=== PATIENT | male | born 1940 | race Caucasian/White ===

== ENCOUNTER 2016-12-07 17:17 | Inpatient (IN) | payer MEDICARE, OTHER ==
[~2016-12-07] VITALS: Ht 185.4 cm; Wt 72.8 kg
[2016-12-07 17:27] VITALS: BP 109/75; PULSE 87; RESP 18; O2SAT 95
[2016-12-07 17:49] VITALS: BP 110/53; PULSE 88; RESP 22; O2SAT 99
--- NOTE | 2016-12-07 18:04 | ED.REPORT ---
HPI-General Illness Date of Service Dec 07, 2016 ED Provider: Ankit Cummings DO A 76 year old male with a history of memory issues, COPD, HTN, and diabetes presents to the ED complaining of swelling, redness, and puffiness in both legs onset within the last few days. He thinks that symptoms may be from water retention. He does not have a good memory of why he is in the ED. He otherwise reports that he feels fine and denies any SOB, chest pain, fever, vomiting, or diarrhea. His daughter accompanied him to the ED. Nursing Notes Stated Complaint: SWOLLEN LEGS,HEART CONCERNS Chief Complaint: Respiratory Complaints Nursing Notes Reviewed: Yes Allergies: Coded Allergies: No Known Allergies (Unverified , 12/07/16) Scheduled Aspirin (Aspirin) 81 Mg Tablet 81 MG PO DAILY Atorvastatin Calcium (Atorvastatin Calcium) 40 Mg Tablet 40 MG PO DAILY Glimepiride (Glimepiride) 4 Mg Tablet 4 MG PO BID Hydrochlorothiazide (Hydrochlorothiazide) 25 Mg Tablet 25 MG PO DAILY Metformin (Metformin) 500 Mg Tablet 1,000 MG PO BID Ramipril (Ramipril) 10 Mg Capsule 10 MG PO DAILY Scheduled PRN Albuterol HFA (Proair HFA) 8.5 Gm Hfa.aer.ad 2 PUFFS INH Q4H PRN PRN For Shortness of Breath General Time Seen by MD: 18:04 Chief Complaint Other (bilateral leg swelling) Hx Obtained From: Patient Arrived By: Walk-in Sudden in Onset?: No Onset Occurred: 3 days ago (a few days ago) Symptom Duration: Since onset Location: : Leg left: Leg right Severity: Current: Mild Severity: Maximum: Mild Recent Healthcare: No recent doctor visit Similar Sx Previous: No Past Medical History Past Medical History Notes: Dr. De Oliveira is PCP. Past Medical History Nicotine dependence. Atrial Fibrillation. Colon cancer screening. Cad, S/p Cabg Memory/cognitive changes hyperlipidemia Current medications: Proair Aspirin Adult Reports: COPD, Diabetes mellitus (Type 2), Hypertension Past Surgical History 5 way bypas performed 20 years ago. Does not use inhaler. Social History Denies recent out of country travel. Review of Systems fluid retention. Full Review of Systems Constitutional: Denies: Fever Respiratory: Denies: Shortness of breath Cardiovascular: Denies: Chest pain GI: Denies: Diarrhea, Vomiting Musculoskeletal: Reports: Extremity swelling (bilateral below waist) Complete sys rev & neg: except as marked. Physical Exam Vital Signs Vital Signs Date Time Temp Pulse Resp B/P Pulse Ox O2 Delivery O2 Flow Rate FiO2 12/07/16 19:37 82 18 96 Room Air 12/07/16 17:49 88 22 110/53 99 Room Air 12/07/16 17:27 36.1 87 18 109/75 95 Room Air Initial VS: Reviewed General/Constitutional: Awake, Alert Patient is pleasant. Head / Eyes: Atraumatic, Normocephalic, PERRL, EOMI Head is normal, but patient has pursed lip breathing. ENT: Atraumatic Neck Vascular: Positive: JVD moderate Resp Distress / Stridor: Positive: Resp distress mild Patient has barrel chest consistent with COPD. Diminshed breath sounds with wheezing. Pursed lip breathing. Cardiovascular: Heart rate NL Distant heart tones. Abdomen: No guarding, No rebound Anasarca from waist down. Pitting edema in both legs. Skin: Warm, Dry Neurologic: Oriented X3, Speech NL Interpretation & Diagnostics Lab Results Interpretation Result Diagram: 12/07/16 1825 12/07/16 1825 Test 12/07/16 18:25 White Blood Count 11.0th/mm3 (3.8-10.1) Red Blood Count 5.56mil/mm3 (4.40-5.80) Hemoglobin 15.5g/dL (13.8-17.2) Hematocrit 47.1% (41.0-50.0) Mean Corpuscular Volume 84.7fL (81-100) Mean Corpuscular Hemoglobin 27.9pg (27.0-35.0) Mean Corpuscular Hemoglobin Concent 32.9% (32.0-37.0) Red Cell Distribution Width 18.4% (12.3-15.4) Platelet Count 180bil/L (150-400) Neutrophils (%) (Auto) 82.7% (40-74) Lymphocytes (%) (Auto) 8.4% (14-46) Monocytes (%) (Auto) 8.5% (4-12) Eosinophils (%) (Auto) 0.2% (0-5) Basophils (%) (Auto) 0.1% (0-3) Sodium Level 136mEq/L (134-144) Potassium Level 5.3mEq/L (3.5-5.2) Chloride Level 98mEq/L (97-108) Carbon Dioxide Level 24mmol/L (18-29) Blood Urea Nitrogen 48mg/dL (8-27) Creatinine 1.21mg/dL (0.76-1.27) Estimat Glomerular Filtration Rate 62mL/min (>59) Glucose Level 93mg/dL (60-99) Lactic Acid Level 1.9mmol/L (0.4-2.0) Calcium Level 9.4mg/dL (8.5-10.1) Total Bilirubin 2.3mg/dL (0.0-1.2) Aspartate Amino Transf (AST/SGOT) 26U/L (0-50) Alanine Aminotransferase (ALT/SGPT) 27U/L (0-44) Alkaline Phosphatase 50U/L (25-160) Troponin T 0.018ug/L (0.0-0.011) Pro-B-Type Natriuretic Peptide 64352ty/mL (0-486) Total Protein 6.8g/dL (6.4-8.4) Albumin 3.4g/dL (3.4-5.0) Procalcitonin 0.09ng/mL (0.00-0.08) Hold Campbell Top Tube Received (Received) Pulse Oximetry Interpretation Pulse Oximetry: Pulse Ox normal, On room air ECG Interpretation ECG Interpretation: Rate is 87. Sinus rhythm. Ventricular premature complex. Left ventricular hypertrophy. Nonspecific T abnormalities, lateral leads. Anterior ST elevation, probably due to LVH. Time: 18:08 Interpreted by: ED physician Rhythm Strip Interpretation : Rhythm Strip Interpretation: Interpreted by me, Rate (76), Normal sinus rhythm CBC Interpretation WBC elevated BMP / CMP Interpretation K+ elevated, BUN elevated Cardiac / Vascular Lab Interp Cardiac markers abnormal, BNP elevated, Troponin abnormal X-Ray Chest Interpretation Chest Xray Interpretation: IMPRESSION: Low lung volumes with diffuse consolidative and groundglass opacities which could represent multifocal pneumonia and/or aspiration. Please correlate clinically to exclude pulmonary edema. Recommend continued radiographic followup Dictated by: Nino Bolanos M.D. on 12/07/2016 at 18:48 Approved by: Nino Bolanos M.D. on 12/07/2016 at 18:51 Interpretation / Wet Read by: Interpret - Radiologist Re-Eval/Medical Decision Med Decision/Clinical Course 76-year-old male presents with bilateral leg swelling. He is unable to give a good history due to either dementia or memory impairment. This is all well documented. On my evaluation he appeared to be air hungry and in mild respiratory distress. He also is rather soft blood pressure. He has JVD and pursed lip breathing. He has a barrel chest consistent with COPD. He has crackles and wheezes in both lung rice. He cannot take a very deep breath. His belly is benign. His limbs show edema bilaterally. EKG shows sinus rhythm. He has some J-point elevation anteriorly. I think he also has voltage criteria for LVH. Of note he does not have any chest pain whatsoever so I doubt he is having a STEMI. I think his troponin should be trended. Chest x-ray shows bilateral fluffy infiltrates. Laboratory work shows a leukocytosis as well as elevated BNP and azotemia with mild hyperkalemia. Assessment: Pneumonia, congestive heart failure and acute exacerbation of COPD. Elevated troponin. Plan: IV ceftriaxone because as I can tell this is community acquired pneumonia. IV diuretics. Aspirin. Nitrates of his blood pressure will tolerate it for the CHF. DuoNeb and steroids. I will be admitting him to the progressive care unit. Source of Hx: Old records Time of Eval: 19:19 Re-Evaluation/Progress Note: Rechecked patient, explained test results, diagnosis, and plan for admission. Patient understands and agrees with the plan. All questions addressed. Patient appears to be more sick. Consultation : Referral / Consult Name: Srini Gandara MD Call Returned at: 19:21 Accountant Manager: Accepts admit Note: Discussed patient case with Dr. Gandara who accepts patient admit. Counseled Regarding: Diagnosis, Lab results, Need for admission Discharge & Departure Shift Change Sign-Out Response to Therapy: Improved Primary Impression: Pneumonia Pneumonia type: due to unspecified organism Laterality: bilateral Lung location: lower lobe of lung Qualified Code: J18.9 - Pneumonia, unspecified organism Additional Impressions: COPD with acute exacerbation Congestive heart failure Congestive heart failure type: unspecified congestive heart failure type Congestive heart failure chronicity: acute Qualified Code: I50.9 - Heart failure, unspecified Disposition: ADMITTED TO HOSPITAL Discharge Condition All VS Reviewed: Yes Condition: Stable Referrals: PlouWilmer charles MD Attestation Portions of this note were transcribed by Francisco Dickson. I, Dr. Cummings personally performed the history, physical exam and medical decision-making; I reviewed and confirmed the accuracy of the information in the transcribed note. Signed by: Preston Barr, 12/07/2016, 2050. copies to: Wilmer De Oliveira MD, Todd P DO Dec 07, 2016 18:04 Francisco Dickson Dec 07, 2016 18:10
[2016-12-07] MEDS ORDERED: Albuterol-Ipratropium 3 mL Inhalation Solution NEB ONE (18:35)
[2016-12-07 18:38] LABS: BASOPHILS % (AUTO) 0.1 % (0-3); EOSINOPHILS % (AUTO) 0.2 % (0-5); MONOCYTES % (AUTO) 8.5 % (4-12); Mean Corpuscular Hemoglobin 27.9 pg (27.0-35.0); Mean Corpuscular Volume 84.7 fL (81-100); NEUTROPHILS % (AUTO) 82.7 % (40-74); Platelet Count 180 bil/L (150-400)
--- NOTE | 2016-12-07 18:53 | DRSVH ---
PROCEDURE: X-RAY CHEST ONE VIEW, PORTABLE ([id number]) INDICATIONS: SHORT OF BREATH TECHNIQUE: One view of the chest was acquired. COMPARISON: None. FINDINGS: Surgical changes and devices: Sternotomy wires. Lungs and pleura: No pleural effusions or pneumothorax. Lung volumes are decreased. Bilateral perihi lar ill-defined consolidative and groundglass opacities Mediastinum: Mediastinal contours appear normal. Heart size is normal. Bones and chest wall: No suspicious bony lesions. Overlying soft tissues appear unremarkable. IMPRESSION: Low lung volumes with diffuse consolidative and groundglass opacities which could represent multifoca l pneumonia and/or aspiration. Please correlate clinically to exclude pulmonary edema. Recommend cont inued radiographic followup Dictated by: Nino Bolanos M.D. on 12/07/2016 at 18:48 Approved by: Nino Bolanos M.D. on 12/07/2016 at 18:51
[2016-12-07 18:56] LABS: TROPONIN T 0.018 ug/L (0.0-0.011)
[2016-12-07] MEDS ORDERED: MethylprednisoLONE Sodium Succinate 62.5 mg/mL 2 mL Inj IVPUSH ONE (19:15)
[2016-12-07] MEDS ORDERED: Furosemide 10 mg/mL 4 mL Inj IVPUSH ONE (19:15)
[2016-12-07] MEDS ORDERED: cefTRIAXone Inj 2,000 MG in Dextrose 5% Minibag Plus 50 ML IV ONE (19:15)
[2016-12-07] MEDS ORDERED: ASPI-973 PO (19:24)
[2016-12-07] MEDS ORDERED: GLIM4TAB2 PO (19:24)
[2016-12-07] MEDS ORDERED: ATOR40TA69 PO ×2 (19:24→21:24)
[2016-12-07] MEDS ORDERED: METF500T4 PO (19:24)
[2016-12-07] MEDS ORDERED: RAMI10CA PO (19:24)
[2016-12-07] MEDS ORDERED: HYDR25TA4 PO (19:24)
[2016-12-07] MEDS ORDERED: ALBU8.5H2 INH (19:24)
[2016-12-07] MEDS ORDERED: Polyethylene Glycol (PEG) 17 Gm Powder PO PRN (19:35)
[2016-12-07 19:37] VITALS: PULSE 82; RESP 18; O2SAT 96
[2016-12-07 20:16] VITALS: BP 99/52; PULSE 90; RESP 22; O2SAT 96
[2016-12-07 21:07] VITALS: BP 105/68; PULSE 87; RESP 18; O2SAT 95
[2016-12-07] MEDS ORDERED: NIAC1000 PO ×2 (21:18→21:33)
[2016-12-07] MEDS ORDERED: METO50TA7 PO (21:22)
[2016-12-07] MEDS ORDERED: RAMI10CA31 PO (21:25)
[2016-12-07] MEDS ORDERED: ASPI325T32 PO (21:28)
[2016-12-07] MEDS ORDERED: VITA400C19 PO (21:28)
[2016-12-07] MEDS ORDERED: FOLI0.4T2 PO (21:28)
[2016-12-07] MEDS ORDERED: ASCO100089 PO (21:28)
[2016-12-07] MEDS ORDERED: MULT-1018 PO (21:28)
--- NOTE | 2016-12-07 21:54 | NUR ---
Admit to [facility] Patient report called to [facility] nurse. Patient arrived via gurney and self transferred to bed. Patient oriented to room, bed, staff, call light. Patient has bilateral lower extremity edema. Scrotum is swollen and abdomen is swollen. Patient denied pain. Patient on RA.
--- NOTE | 2016-12-07 22:15 | PCM.HPMED ---
Subjective Date of Service Dec 07, 2016 Primary Provider: Admitting Physician: Srini Gandara MD Primary Care Physician: Wilmer De Oliveira MD Attending Physician: Srini Gandara MD Admit Status: From the Emergency Department Chief Complaint: Increased swelling b/l lower extremities History of Present Illness: Patient is a 76 year old male with memory issues and a history of CAD s/p CABG twenty yrs ago, DM type 2, HTN and COPD who presented to the ED with the complaint of increased redness and swelling in his legs. He states that he is not quite sure when it started but states that he saw his primary doctor who recommend he go to the ED. He is alert and communicating appropriately but has notable deficits in his memory. Per chart review, the swelling in his legs worsened within the last few days. Additional history was obtained from the patient's son and daughter, who state that the he looks significantly different than his baseline. His daughter notes increasing frailty, ill-appearance and a decreased appetite which she attributes somewhat to his memory issues and ongoing tobacco use. The patient denies any other symptoms and several times asked if he could go home. He denies fever, chills, shortness of breath, chest pain or palpitations, cough, dizziness, GI or symptoms. Per his son and daughter the patient has pill packs prepared at [facility] for all his medications but there is questionable compliance with his medications due to his cognitive deficit. In the ED, vitals 36.1, BP 110/53, pulse 88, RR 22, SpO2 99% on room air; Labs significant for a WBC of 11.0 with a left shift, lactic acid 1.9, hyperkalemia ( potassium 5.3), troponin 0.018, proBNP 46191, BUN 48, creatinine 1.21. ECG showing sinus rhythm with a rate of 87, nonspecific T wave abnormalities and anterior ST elevation likely due to LVH. CXR revealed low lung volumes and diffuse groundglass opacities suspicious for multifocal pneumonia. He was given 40mg IV lasix, 125mg IV solumedrol, duonebs, 2g ceftriaxone and 324mg of PO aspirin. Review of Systems: A comprehensive review of systems was conducted with the patient and found to be negative except as above in the History of Present Illness. Allergies Coded Allergies: No Known Allergies (Unverified , 12/07/16) Home Medications Aspirin 81 MG PO DAILY Atorvastatin Calcium 40 MG PO DAILY Glimepiride 4 MG PO BID Hydrochlorothiazide 25 MG PO DAILY Metformin 1,000 MG PO BID [id number] MG PO DAILY Albuterol HFA 8.5 Gm Hfa.aer.ad 2 PUFFS INH Q4H PRN For SOB PMH Hypertension Hyperlipidemia Diabetes mellitus, type 2 CAD s/p CABG (5 vessel bypass 20yrs ago) Memory/cognitive changes Nicotine dependence Surgical History CABG s/p 20yrs ago Tonsillectomy as a child Denies any other surgeries Family History Father with NH in his mid 50s, at age 73. Patient denies family hx of diabetes, stroke or cancers. 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 HEENT: Normocephalic, atraumatic, PERRLA, no scleral icterus, pursed lip breathing no cyanosis, oropharynx appears normal, mucosa somewhat dry. NECK: Nontender, +JVD, no bruits or lymphadenopathy or thyromegaly. Cardiac: Heart tones are distant, RRR, no murmurs, rubs or gallops appreciated. Chest/Lungs: Increased A/P diameter, breath sounds diminished bilaterally, mild diffuse end-expiratory wheezing, no crackles or rhonchi heard. (lung exam conducted shortly after nebulizer tx) Cardiovascular: Regular rate and rhythm with no murmurs, rubs, or gallops appreciated Abd: Soft, mildly distended, nontender, no rebound or guarding, no hepatosplenomegaly or masses appreciated. Ext: Ansasarca from waist down, bilateral lower extremities erythematous with chronic skin changes, no ulcerations or blisters. Skin: Warm, dry, ashen with lower extremity changes as above, no rashes or ulcerations appreciated. Neuro: Alert and oriented x3, limited memory to why he is here with notable lapses in timeline, CN II-XII grossly intact; bilateral muscle wasting of upper ext, no focal motor or sensory deficit. No known gait impairment. Psychiatric: Normal mood and affect, communicating appropriately and admits to difficulties with memory. Lab and Diagnostics Labs Laboratory Tests Test 12/07/16 18:25 White Blood Count 11.0th/mm3 (3.8-10.1) Red Blood Count 5.56mil/mm3 (4.40-5.80) Hemoglobin 15.5g/dL (13.8-17.2) Hematocrit 47.1% (41.0-50.0) Mean Corpuscular Volume 84.7fL (81-100) Mean Corpuscular Hemoglobin 27.9pg (27.0-35.0) Mean Corpuscular Hemoglobin Concent 32.9% (32.0-37.0) Red Cell Distribution Width 18.4% (12.3-15.4) Platelet Count 180bil/L (150-400) Neutrophils (%) (Auto) 82.7% (40-74) Lymphocytes (%) (Auto) 8.4% (14-46) Monocytes (%) (Auto) 8.5% (4-12) Eosinophils (%) (Auto) 0.2% (0-5) Basophils (%) (Auto) 0.1% (0-3) Sodium Level 136mEq/L (134-144) Potassium Level 5.3mEq/L (3.5-5.2) Chloride Level 98mEq/L (97-108) Carbon Dioxide Level 24mmol/L (18-29) Blood Urea Nitrogen 48mg/dL (8-27) Creatinine 1.21mg/dL (0.76-1.27) Estimat Glomerular Filtration Rate 62mL/min (>59) Glucose Level 93mg/dL (60-99) Lactic Acid Level 1.9mmol/L (0.4-2.0) Calcium Level 9.4mg/dL (8.5-10.1) Total Bilirubin 2.3mg/dL (0.0-1.2) Aspartate Amino Transf (AST/SGOT) 26U/L (0-50) Alanine Aminotransferase (ALT/SGPT) 27U/L (0-44) Alkaline Phosphatase 50U/L (25-160) Troponin T 0.018ug/L (0.0-0.011) Pro-B-Type Natriuretic Peptide 35855gf/mL (0-486) Total Protein 6.8g/dL (6.4-8.4) Albumin 3.4g/dL (3.4-5.0) Hold Campbell Top Tube Received (Received) Result Diagram: 12/07/16182412/07/161824 X-Rays, CTs and MRIs X-RAY CHEST ONE VIEW, PORTABLE IMPRESSION: Low lung volumes with diffuse consolidative and groundglass opacities which could represent multifocal pneumonia and/or aspiration. Please correlate clinically to exclude pulmonary edema. Recommend continued radiographic followup Dictated by: Nino Bolanos M.D. on 12/07/2016 at 18:48 Approved by: Nino Bolanos M.D. on 12/07/2016 at 18:51 Assessment & Plan 76 y/o M with memory issues and a hx of CAD s/p CABG twenty yrs ago, DM type 2, HTN and COPD who presented to the ED with the complaint of increased redness and swelling in his legs for the past three days. Admitted for further evaluation and management of CHF, COPD exacerbation and probable pneumonia. 1. Probable acute exacerbation of CHF, poa. Active. -limited health records via chart review. No prior Echo or diagnosis of HF found. -patient presented in moderate respiratory distress with anasarca to the waist. -EKG showed NSR w/rate 88, anterior ST elevation likely due to LVH and non- specific T wave changes. -CXR suspicious for pneumonia, aspiration and/or pulmonary edema. -proBNP 05430, troponin 0.083 -received 40mg IV lasix in ED -placed telemetry -monitor I/Os, daily weights -Echocardiogram ordered -trend troponin -continue IV lasix 40mg daily -consider consult to Cardiology, pending Echo 2. Acute on chronic COPD exacerbation, poa. Active. -50+ pack-year smoking history. Ongoing tobacco use. -sputum culture, ordered -received 125mg IV solumedrol in ED. -start 40mg PO prednisone daily x5days -continue antibiotics -duonebs q4h, albuterol q2h prn 3. Community acquired pneumonia, poa. Active -WBC 11.0 w/ left shift. CXR as above. -Lactic acid wnl (1.9) -received 2g ceftriaxone, 125mg IV solumedrol, duoneb x1in the ED -blood cultures x2, pending -sputum culture ordered -procalcitonin, pending -urine antigens (strep and legionella), ordered -rapid influenza screen pending -respiratory viral PCR ordered -continue IV antibiotics -will hold IVFs secondary to #2 -CBC, procalcitonin in the morning 4. Elevated troponin, poa. Active -patient remains asymptomatic for chest pain -likely secondary to demand ischemia, acute exacerbation of CHF -troponin 0.083, will trend 5. Hyperkalemia, unknown chronicity, poa. Active. -potassium 5.3 -pre-renal azotemia; BUN 48, creatinine 1.21. -continue lasix, as above -CMP in the morning. 4. Hypertension (chronic), poa. Ongoing -home medications, held on admission for low BPs 5. Diabetes mellitus, type 2 (chronic), poa. Ongoing -held home metformin and glimepiride 6. Hyperlipidemia (chronic), poa. Ongoing -continue home statin PRN: Acetaminophen-fever/headache/mild/moderate pain Antiemetics, as needed Bowel regimen, as needed. Disposition: Patient admitted under inpatient status with expected length of stay > 2 midnights for severity of present symptoms, complexities of treatment plan and risk for adverse event. Pain Evaluation: Adequate Pain Control GI Prophylaxis: Not indicated VTE Prophylaxis Indicated: Meets Criteria for Anticoag Therapy VTE Prophylaxis: Sub-Q Heparin (Unfractionated) Resuscitation Status: CPR: Attempt Resuscitation Attending Statement The patient was seen and examined together with Dr. Kang on 12/07 and I agree with the history, exam and plan as outlined in the note above. Verito Kang DO Dec 07, 2016 19:32 Srini Gandara MD Dec 08, 2016 00:25
[2016-12-07] MEDS ORDERED: Glucose 40% Oral Gel 15 Gm Tube PO PRN (22:25)
[2016-12-07] MEDS ORDERED: Albuterol 2.5 mg/3 mL Inhalation Solution NEB PRN (22:25)
[2016-12-08] VITALS (12 sets, daily range): BP systolic 97–129; BP diastolic 60–82; PULSE 79–108; RESP 20–22; O2SAT 90–97
[2016-12-08] MEDS ORDERED: Azithromycin Inj 500 MG in Dextrose 5% w/Vial Mate 250 ML IV SCH (01:00)
[2016-12-08] MEDS ORDERED: 0.9% Sodium Chloride 250 ML ONE (02:01)
--- NOTE | 2016-12-08 02:12 | NUR ---
5 beats VTACH at around 0200 per telephonic nurse. Pt asymptomatic. Denies pain and states "I am trying to sleep". VSS. Will continue to monitor.
[2016-12-08 06:51] LABS: BASOPHILS % (AUTO) 0 % (0-3); EOSINOPHILS % (AUTO) 0 % (0-5); MONOCYTES % (AUTO) 1.5 % (4-12); Mean Corpuscular Hemoglobin 28.4 pg (27.0-35.0); Mean Corpuscular Volume 84.3 fL (81-100); NEUTROPHILS % (AUTO) 92.5 % (40-74); Platelet Count 139 bil/L (150-400)
[2016-12-08 07:34] LABS: Magnesium 2.2 mg/dL (1.6-2.6)
[2016-12-08] MEDS: Albuterol-Ipratropium 3 mL Inhalation Solution NEB SCH ×4 (08:24→20:49)
[2016-12-08] MEDS ORDERED: Furosemide 10 mg/mL 4 mL Inj IVPUSH SCH (08:30)
[2016-12-08] MEDS ORDERED: predniSONE 20 mg Tablet PO SCH (08:30)
[2016-12-08] MEDS: Insulin LISPRO 300 Unit/3 mL Inj SUBQ SCH ×4 (09:27→22:00)
[2016-12-08] MEDS: Heparin 5,000 Unit/mL Inj SUBQ SCH ×2 (10:24→17:16)
--- NOTE | 2016-12-08 13:52 | NUR ---
Supplemental O2 Patient oxygen saturations while awake were at 95%. When patient falls asleep patient desats to 88%. 2L supplemental oxygen placed on patient while resting in day. Placing continuos pulse ox on patient.
[2016-12-08 14:04] LABS: APPEARANCE,URINE CLEAR (CLEAR,HAZY); COLOR,URINE DARK YELLOW (YELLOW); PH,URINE 5.5 (5.0-8.0)
[2016-12-08 14:05] LABS: OCCULT BLOOD,URINE NEGATIVE (NEGATIVE); UROBILINOGEN,URINE NORMAL (NORMAL)
--- NOTE | 2016-12-08 14:38 | NUR ---
took over patient care [id number]
--- NOTE | 2016-12-08 14:47 | NUR ---
Student Nurse PIE note P: pt presenting with +3 pitting edema on lower extremities, firm abdomen, but no pain reported. Patient has history of CHF, COPD, and issues with treatment/medication adherence. Patient has memory loss issues. I: Hep-locked pt and stopped fluids. Provided pt with ice water and educated him on importance of voiding. Patient tolerated PO medications well. Echocardiogram performed around 1400. Keeping head of bed raised and O2 on while pt sleeps (take off when awake). E: IV site looks clear and reports no signs of inflammation or phlebitis. Monitor and track BP for hypotension and weights for fluid retention. Monitor lower extremity edema. Awaiting abdominal ultrasound.
--- NOTE | 2016-12-08 16:39 | DRSVH ---
[facility] [address] [place] [address] Echocardiogram Report Name: BELKYS ERIC JStudy Kunal e: 12/08/2016 Height: 73 in Hospital Exam Location: [facility] Weight: 202 lb Gender: Male BSA: 2.2 m2 : 1940 Age: 76 yrs BP: 97/64 mmHg Reason For Study: ANASARCA, SHORTNESS OF BREATH Ordering Physician: Performed By: Chintan Koroma Interpretation Summary The left ventricle is moderate-severely dilated and left ventricular systolic function is severely reduced with the ejection fraction estimated to be 10- 15%. There is a significant dyssynchronous contraction pattern, consistent with a conduction abnormality with severe global hypokinesis that is worse at the apex and the entire posterior wall which appear to be essentially akinetic. Trabeculae near apex are visualized but a thrombus can not be excluded. Diastolic function could not be accurately assessed due to unobtainable data. The right ventricle is mildly dilated. Right ventricular systolic function is severely reduced. The right ventricular systolic pressure is estimated at 49 mmHg assuming a right atrial pressure of 15 mm Hg. The left atrium is moderately dilated and the right atrium is mildly dilated. There is moderate mitral annular calcification with probable moderate mitral regurgitation and minimal to mild mitral stenosis. There is moderate tricuspid regurgitation. The aortic valve is slightly calcified with mild to moderate aortic regurgitation but no aortic valve stenosis. There is mild to moderate pulmonic regurgitation. The ascending aorta and aortic arch are at the upper limits of normal in size. Procedure: A two-dimensional transthoracic echocardiogram with color flow and Doppler was performed. The study quality was technically good. There is no prior echocardiogram noted for this patient. The heart rate ranged between 86-101 bpm during the study. The patient had frequent PVCs during the exam. Left Ventricle: The left ventricle is moderate-severely dilated. There is normal left ventricular wall thickness. Trabeculae near apex are visualized. No thrombus is observed. Thrombus can not be excluded. Left ventricular systolic function is severely reduced. The ejection fraction is estimated to be 10-15%. There is a significant dyssynchronous contraction pattern, consistent with a conduction abnormality. There is severe global hypokinesis of the left ventricle. This is worse at the apex and the entire posterior wall which appear to be essentially akinetic. Diastolic function could not be accurately assessed due to unobtainable data. Right Ventricle: The right ventricle is mildly dilated. Right ventricular systolic function is severely reduced. Atria: The left atrium is moderately dilated. The right atrium is mildly dilated. There is no Doppler evidence for an interatrial shunt. Mitral Valve: There is moderate mitral annular calcification. The mitral valve leaflets appear borderline thickened, but open well. There is mild mitral stenosis. The mitral valve mean gradient is 6 mmHg. There is moderate mitral regurgitation. Aortic Valve: The aortic valve is trileaflet. The aortic valve is slightly calcified. The aortic valve opens well. There is no aortic valve stenosis. There is mild to moderate aortic regurgitation. Tricuspid Valve: The tricuspid valve is not well visualized, but is grossly normal. There is moderate tricuspid regurgitation. The right ventricular systolic pressure is estimated at 49 mmHg assuming a right atrial pressure of 15 mm Hg. Pulmonic Valve: The pulmonic valve leaflets are thin and pliable; valve motion is normal. There is mild to moderate pulmonic regurgitation. Great Vessels: The aortic root is normal size. The ascending aorta is at the upper limits of normal in size. The aortic arch is at the upper limits of normal in size. The pulmonary artery is normal size. The IVC is dilated (diameter is greater than 2.1 cm) and it collapses less than 50% with a sniff. This suggests a high right atrial pressure of 15 mm Hg. Pericardium/ Pleura There is no pericardial effusion. There is no pleural effusion. MMode/2D Measurements & Calculations LVIDd: 6.8 cm LA dimension: 4.8 cm RA long axis LVOT diam: 2.3 cm LVIDs: 6.4 cm AoV Opening FS: 6.5 % LA A2 area: 24.6 cm RA area EPSS: 2.6 cm LA A4 area: 28.2 cm Ao root diam IVSd: 0.90 cm LA length (vol) : 21.0 cm LVPWd: 0.96 cm RA vol asc Aorta Diam LA vol: 103.8 ml : 67.9 ml LA vol index RA Ao Arch Diam (Prox : 31.4 mm2 Trans): 3.0 cm IVC diam: 2.4 cm LV craig. diameter/BSA LV sys. diameter/BSA RVD1 (basal) RVD2 (mid): 4.1 cm (cm/m^2): 3.2 (cm/m^2): 3.0 TAPSE: 0.61 cm Doppler Measurements & Calculations Ao V2 max: 115.6 cm/sec MV P1/2t TR max kip MV V2 mean Ao max P.4 mmHg : 93.4 msec : 290.8 cm/sec : 111.8 cm/sec Ao mean P.8 mmHg TR max PG MV mean PG LVOT Max Kip MVA(VTI): 1.3 cm2: 33.8 mmHg : 57.5 cm/sec PA V2 max MV V2 VTI: 35.2 cm : 73.4 cm/sec MV dec time ESVIN(I,D): 2.3 cm PA mean PG : 0.29 sec sev ratio: 0.54 : 0.85 mmHg PA Accel Time MV P1/2t max kip Ao V2 mean LV V1 max PG PA V2 mean : 80.6 cm/sec : 41.9 cm/sec Ao V2 VTI LV V1 VTI: 10.2 cmPA pr(Accel) MVA(P1/2t): 2.4 cm2 : 49.9 mmHg ESVIN(V,D): 2.1 cm2 ESVIN indexed to BSA (cm^2/m^2): 1.1 Reading Physician:04:38 PM
--- NOTE | 2016-12-08 17:19 | PCM.PNMED ---
Subjective Date of Service Dec 08, 2016 Subjective complains of LE edema. Otherwise denies any new issues/complaints Exam Vital Signs Vital Sign - Last Date Time Temp Pulse Resp B/P Pulse Ox O2 Delivery O2 Flow Rate FiO2 12/08/16 16:07 94 22 90 Room Air 12/08/16 14:04 36.9 97/64 Intake and Output 12/07/16 12/07/16 12/08/16 Cumulative From/Thru 15:00 23:00 07:00 12/07/16 17:27 - 12/08/16 06:42 Intake Total 750 ml 750 ml Balance 750 ml 750 ml Intake Oral 750 ml 750 ml # Voids 1 1 # Bowel Movements 0 0 General: Alert, Oriented X3, Cooperative, No Acute Distress Head: Normal Eyes: Scleral Anicteric Mouth: Mucous Membr Moist/[place] Neck: Supple Chest & Lungs: Chest Wall Normal, Clear to auscultation & percussion Cardiovascular: Regular Rate/Rhythm Pulses: NL carotid, radial, femoral, DP, PT Abdomen: Non-tender, Distended, Normoactive bowel tones, Soft Extremities: Edema (3+ pitting edema up to the abdomen) Neurological: Grossly Neurologically Intact, Normal Speech IVs and Medications Medications Reviewed: Medications were reviewed in detail Lab and Diagnostics Result Diagram: 12/08/16 0552 12/08/16 0552 X-Rays, CTs and MRIs X-RAY CHEST ONE VIEW, PORTABLE IMPRESSION: Low lung volumes with diffuse consolidative and groundglass opacities which could represent multifocal pneumonia and/or aspiration. Please correlate clinically to exclude pulmonary edema. Recommend continued radiographic followup Dictated by: Nino Bolanos M.D. on 12/07/2016 at 18:48 Approved by: Nino Bolanos M.D. on 12/07/2016 at 18:51 Assessment & Plan 76 y/o M with memory issues and a hx of CAD s/p CABG twenty yrs ago, DM type 2, HTN and COPD who presented to the ED with the complaint of increased redness and swelling in his legs for the past three days. Admitted for further evaluation and management of CHF, COPD exacerbation and probable pneumonia. # Anasarca, suspect acute and present on admission. ongoing -probable acute exacerbation of systolic and diastolic CHF, poa. Active. -limited health records via chart review. -CXR suspicious for pneumonia, aspiration and/or pulmonary edema. -received 40mg IV lasix in ED -continue telemetry -monitor I/Os, daily weights -followup pending Echocardiogram -hold IV Lasix for today until Echo result back and followup on renal function in am given acute kidney injury overnight -consider consult Cardiology and/or nephrology pending echo and goals of care -check abdominal ultra sound to rule out ascites. # Acute on chronic COPD exacerbation, poa. Currently seems resolved -50+ pack-year smoking history. Ongoing tobacco use. -sputum culture, ordered -received 125mg IV solumedrol in ED. -stop Prednisone given no significant wheezing noted on exam today -duonebs q4h, albuterol q2h prn # ? Acute community acquired pneumonia, poa. -doubt this diagnosis given normal WBC, negative procalcitonin, afebrile and given clinical picture -suspect CXR findings likely edema as opposed to infiltrate -received 2g ceftriaxone, 125mg IV solumedrol, duoneb x1in the ED -blood cultures x2, pending -sputum culture ordered -stop antibiotics and follow clinically # Elevated troponin, poa. normalized on repeat -patient remains asymptomatic for chest pain -likely secondary to demand ischemia, acute exacerbation of CHF -followup on echo # Hyperkalemia, unknown chronicity, poa. Resolved. -followup repeat labs in am # Hypertension (chronic), poa. Ongoing -home medications, held on admission for low BPs # Diabetes mellitus, type 2 (chronic), poa. Ongoing -held home metformin and glimepiride -ISS # Hyperlipidemia (chronic), poa. Ongoing -continue home statin Dispo: 3-4 days GI Prophylaxis: Not indicated VTE Prophylaxis: Sub-Q Heparin (Unfractionated) Resuscitation Status: CPR: Attempt Resuscitation Ramses Oconnell Dec 08, 2016 17:18 VTE Prophylaxis: Sub-Q Heparin (Unfractionated) Resuscitation Status: CPR: Attempt Resuscitation Ramses Oconnell Dec 08, 2016 17:18
--- NOTE | 2016-12-08 19:12 | DRSVH ---
PROCEDURE: US ABDOMEN ([id number]) INDICATIONS: Abdominal distension, anasarca. TECHNIQUE: Real-time scanning was performed of the abdominal and retroperitoneal organs, with image documentatio n. COMPARISON: None. FINDINGS: Liver: Liver is normal in size and homogeneous in echotexture. Gallbladder: Gallbladder is contracted. No gallstones. The gallbladder wall measures 6.5 mm thicknes s. No pericholecystic fluid or sonographic Jhaveri's sign. Biliary ducts: Intrahepatic bile ducts are non-dilated. Extrahepatic bile duct caliber measures 12. 7 mm. Normal is 6-7 mm or less in diameter, or 10 mm or less post-cholecystectomy. Pancreas: The pancreas is obscured by overlying bowel gas. Spleen: Spleen is enlarged measuring 17.6 cm. There is a 2.9 x 1.7 cm nodule in the inferior aspect of the spleen, suspicious for an accessory spleen. Kidneys: Kidneys are normal in size and echotexture. Right kidney measures 10.5 cm long; left kidne y measures 12.4 cm long. No hydronephrosis or nephrolithiasis. No solid masses. There is a 1.5 cm simple appearing exophytic cyst in the mid right kidney. Aorta: Visualized aorta is normal in caliber at less than 3 cm. Iliacs: Proximal common iliac arteries are normal in caliber at less than 2.5 cm. IVC: Intrahepatic inferior vena cava is patent. Miscellaneous: Small amount of free abdominal fluid is present. There is a small left effusion. IMPRESSION: 1. Contracted gallbladder. No gallstones. There is gallbladder wall thickening, which may be secondar y to inadequate distention. 2. A small amount of ascites. 3. Small left effusion. 4. Mild splenomegaly. 5. Small simple appearing exophytic right renal cyst. 6. Pancreas obscured by overlying bowel gas. Dictated by: Jairo Aviles M.D. on 12/08/2016 at 19:05 Approved by: Jairo Aviles M.D. on 12/08/2016 at 19:10
[2016-12-08] MEDS ORDERED: cefTRIAXone Inj 2,000 MG in Dextrose 5% Minibag Plus 50 ML IV SCH (20:30)
[2016-12-09] VITALS (11 sets, daily range): BP systolic 103–143; BP diastolic 63–82; PULSE 49–99; RESP 16–24; O2SAT 91–97
[2016-12-09] MEDS: Heparin 5,000 Unit/mL Inj SUBQ SCH ×3 (00:46→16:35)
[2016-12-09 06:04] LABS: Mean Corpuscular Hemoglobin 27.8 pg (27.0-35.0); Mean Corpuscular Volume 85.7 fL (81-100)
[2016-12-09] MEDS: Insulin LISPRO 300 Unit/3 mL Inj SUBQ SCH ×4 (07:53→21:49)
[2016-12-09] MEDS: Albuterol-Ipratropium 3 mL Inhalation Solution NEB SCH ×5 (08:32→20:31)
--- NOTE | 2016-12-09 10:27 | NUR ---
Telemetry Update: VTACH Patient has been Sinus Rhythm 90-100s with PVC pairs and triplets. Patient has had several runs of VTACH this mornin:14 - 5bt 08:31 - 5bt 08:35 - 5bt 09:39 - 5bt ANABELLE Tirado aware. Will continue to monitor.
[2016-12-09] MEDS: Alum-Mag Hydrox-Simeth 30 mL Suspension PO PRN (10:31)
--- NOTE | 2016-12-09 10:40 | NUR ---
JUANA signed NAE Goel
--- NOTE | 2016-12-09 12:26 | NUR ---
Social Work: Initial Assessment Data: Pt is a 76 y/o male admitted for pneumonia, CHF, exacerbated COPD. Pt's PCP is Dr De Oliveira, pt's insurance is Medicare with [employer]. EMR reviewed. Readmit score is 4, high. Pt discussed in rounds, states pt may need SHELLY in the future. EXPLOSION WELDER met with pt, role explained. When EXPLOSION WELDER came into the room, pt was looking around the room stating "I'm trying to find some tums." EXPLOSION WELDER told him to wait a moment and she notified pt's nurse, who reports having just given pt something for heartburn. Pt seems slightly confused, but able to answer questions. Pt states that he lives in [place] where he uses no DME, has no hx of HH or SNF, drives, has no LTC or VA benefits. Pt is not a caregiver. Pt states he has an AD/DPOA, states they are both of his children. Pt reports good supports to contact are daughter Mayda: [phone] and his son Lui [phone]. EXPLOSION WELDER explained HH to pt, he said he would think about it but did not want EXPLOSION WELDER to set it up at this time. When EXPLOSION WELDER left the room, pt stepped outside of the room stating "I guess I'm getting ready to go, I don't think these are mine" while pulling at his hospital gown. EXPLOSION WELDER notified pt that the hospitalist said he would stay a few more days, and pt went back into his room. EXPLOSION WELDER called pt's daughter, Mayda. She confirmed initial assessment information. Mayda states pt told her he has not been eating very much and she feels that he is not safe to go home alone. EXPLOSION WELDER explained options of HH vs SNF, or private pay LONG TERM and in home caregivers. Mayda states pt likely to decline to move somewhere and she is not sure if he has enough money to pay for in home caregiving. EXPLOSION WELDER explained that ultimately, the decision is up to the pt of what he wants to do at d/c. Mayda states understanding. She also states her brother will bring in DPOA paperwork today. Assessment: Pt who is independent at baseline, currently slightly confused. Plan: Concurrent planning: Pt will either d/c home possibly with HH or private pay caregiving, or possibly SNF. EXPLOSION WELDER will continue to follow. MD stated in rounds PT and OT will be consulted either tomorrow or the next day. EXPLOSION WELDER will continue to follow. NAE Goel Addendum: 12/09/16 at 1235 by MACKENZIE SKY Amended: Links added.
[2016-12-09] MEDS ORDERED: Furosemide 10 mg/mL 10 mL Inj IVPUSH ONE (13:00)
--- NOTE | 2016-12-09 15:55 | NUR ---
STUDENT NOTE Problem: 1. Mr. Juan was found smoking a cigarette in his bathroom. 2. Mr. Juan is adamant about leaving the hospital today. I intercepted him leaving his room with belongings in hand, and saline lock still in place. Intervention: 1. I informed Mr. Juan that smoking is not permitted in the hospital; I asked him to let us hold on to his cigarettes and have since given them to his son, Lui. We also requested a nicotine patch and have applied it. 2. Consult with the MD and information given on disease process. Consult with health social work professor and explanation given of consequences of leaving the hospital AMA. Evaluation: 1. Since receiving the nicotine patch, Mr. Juan has not been as adamant about going outside to have a smoke. 2. Mr. Juan going back and forth between agreeing to stay and stating that he is leaving. The son, Lui, is in the room, encouraging him to stay.
--- NOTE | 2016-12-09 17:03 | PCM.PNMED ---
Subjective Date of Service Dec 09, 2016 Subjective found in the bathroom smoking this morning. expresses understanding of the severity of his medical condition but says would rather go home today (even against medical advise) and would consider coming back to hospital after he has had time to think about his current condition. agreed to stay to be seen by the nephrology consult first and then later agreed to stay till his son arrived. Now he has been convinced to stay to finish his IV Lasix but insists that he would want to go home later today expressing clear understanding of the risk of leaving AMA and verblizing his wished in front of the nursing staff, his friend , and his son who were all in the room at the time. Per nursing currently agreeable to stay possibly for tonight. Exam Vital Signs Vital Sign - Last Date Time Temp Pulse Resp B/P Pulse Ox O2 Delivery O2 Flow Rate FiO2 12/09/16 16:40 34.7 88 22 114/63 95 Room Air 12/08/16 16:30 1.50 Intake and Output 12/08/16 12/08/16 12/09/16 Cumulative From/Thru 15:00 23:00 07:00 12/07/16 17:27 - 12/09/16 06:36 Intake Total 900 ml 1145 ml 797 ml 3592 ml Output Total 400 ml 350 ml 750 ml Balance 900 ml 745 ml 447 ml 2842 ml Intake Oral 900 ml 1130 ml 797 ml 3577 ml IV Total 15 ml 15 ml Output Urine Total 400 ml 350 ml 750 ml # Voids 1 # Bowel Movements 0 0 Exam General: Alert, Oriented X3, Cooperative, No Acute Distress Head: Normal Eyes: Scleral Anicteric Mouth: Mucous Membr Moist/[place] Neck: Supple Chest & Lungs: Chest Wall Normal, mild bibasilar crackles Cardiovascular: Regular Rate/Rhythm Pulses: NL carotid, radial, femoral, DP, PT Abdomen: Non-tender, Distended, Normoactive bowel tones, Soft Extremities: Edema (3+ pitting edema up to the abdomen) Neurological: Grossly Neurologically Intact, Normal Speech Psych: Appropriate. Seems in good spirit despite news about his medical condition IVs and Medications Medications Reviewed: Medications were reviewed in detail Lab and Diagnostics Result Diagram: 12/09/16 0540 12/09/16 0540 X-Rays, CTs and MRIs X-RAY CHEST ONE VIEW, PORTABLE IMPRESSION: Low lung volumes with diffuse consolidative and groundglass opacities which could represent multifocal pneumonia and/or aspiration. Please correlate clinically to exclude pulmonary edema. Recommend continued radiographic followup Dictated by: Nino Bolanos M.D. on 12/07/2016 at 18:48 Approved by: Nino Bolanos M.D. on 12/07/2016 at 18:51 Assessment & Plan 76 y/o M with memory issues and a hx of CAD s/p CABG twenty yrs ago, DM type 2, HTN and COPD who presented to the ED with the complaint of increased redness and swelling in his legs for the past three days. Admitted for further evaluation and management of CHF, COPD exacerbation and probable pneumonia. 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 Active. -resulting in anasarca, suspect acute and present on admission. ongoing -Nephrology consulted to assist with further diuresis given acute kidney injury after one dose of Lasix on admit. Will followup with recommendation -continue telemetry -monitor I/Os, daily weights -Echocardiogram showing EF 10-15% -Abdominal ultra sound on 12/08 with only small ascites # Acute on chronic COPD exacerbation, poa. Currently seems resolved -50+ pack-year smoking history. Ongoing tobacco use. -sputum culture, ordered -received 125mg IV Solu-Medrol in ED. -continue to hold Prednisone given no significant wheezing noted on exam and presenting pulmonary symptoms likely acute CHF -DuoNeb q4h, albuterol q2h prn # ? Acute community acquired pneumonia, poa. -doubt this diagnosis given normal WBC, negative procalcitonin, afebrile and given clinical picture -suspect CXR findings likely edema as opposed to infiltrate -received 2g ceftriaxone, 125mg IV Solu-Medrol, DuoNeb x1in the ED -blood cultures x2, pending -sputum culture ordered -continue to hold antibiotics and follow clinically # Elevated troponin, present on admission. normalized on repeat -patient remains asymptomatic for chest pain -likely secondary to demand ischemia, acute exacerbation of CHF -echo as noted above # Hyperkalemia, unknown chronicity, present on admission -followup repeat labs in am after diuresis # Hypertension (chronic), poa. Ongoing -home medications, held on admission for low BPs # Diabetes mellitus, type 2 (chronic), present on admission. Ongoing -held home metformin and glimepiride -ISS # Hyperlipidemia (chronic), poa. Ongoing -continue home statin Dispo: 3-4 days if he agrees to stay and doesn't leave AMA sooner GI Prophylaxis: Not indicated VTE Prophylaxis: Sub-Q Heparin (Unfractionated) Resuscitation Status: CPR: Attempt Resuscitation Time spent 35 min Ramses Oconnell Dec 09, 2016 17:03
[2016-12-09] MEDS: Furosemide 10 mg/mL 10 mL Inj IVPUSH SCH (17:35)
--- NOTE | 2016-12-09 18:14 | NUR ---
Refusing Telemetry Patient has been refusing telemetry since 14:00 with multiple attempts to reapply. Nursing staff will reattempt prior to shift end.
[2016-12-10] VITALS (11 sets, daily range): BP systolic 104–113; BP diastolic 61–68; PULSE 79–108; RESP 16–24; O2SAT 90–97
[2016-12-10] MEDS: Heparin 5,000 Unit/mL Inj SUBQ SCH ×3 (00:24→16:19)
[2016-12-10] MEDS: Furosemide 10 mg/mL 10 mL Inj IVPUSH SCH ×3 (00:24→16:19)
--- NOTE | 2016-12-10 03:18 | CONS ---
[address] [address] CONSULTATION REPORT PATIENT: BELKYS ERIC : 1940 MR#: [id number] ADMIT: 12/07/2016 JOB ID: [id number] CORRECTED REPORT: DATE OF SERVICE: 12/09/2016 HISTORY: The patient is a very pleasant, but unfortunate, 76-year-old, white male, who was admitted to [facility] for anasarca and increasing shortness of breath. He was given one dose of Lasix and had a slight increase in his creatinine. Renal consultation is being sought for further recommendations for diuretics. He has significant dementia and is unable to give much meaningful history. From what I have gathered from his chart, he was admitted for shortness of breath and, at the time of admission, his creatinine was 1.21. He was given a single dose of furosemide and almost 3 L of IV fluid yesterday, with little increase in his urine output. His creatinine brad to 1.28. During my interview, the patient was markedly orthopneic and had significant conversational dyspnea, and was coughing throughout our interview. He complained of increasing abdominal pain, and his legs being swollen. He denies a history of any prior renal problem and, again, his memory is quite poor. He does have a history of what appears to have of diabetes, COPD, atrial fibrillation, and significant systolic dysfunction. An echocardiogram taken during this admission showed dilated chambers and ejection fraction of approximately 10-15%. His x-ray shows florid congestive heart failure. Otherwise, the patient is unable to give any meaningful history or review of systems. PAST MEDICAL HISTORY: Significant for probable COPD, severe congestive heart failure with atrial fibrillation, coronary artery disease with coronary artery bypass graft, dementia, hyperlipidemia, and type 2 diabetes. PAST SURGICAL HISTORY: Significant for coronary artery bypass graft. MEDICATIONS AT HOME: Unknown. MEDICATIONS IN THE HOSPITAL: Include a single dose of furosemide, ceftriaxone, prednisone, insulin, albuterol inhaler, and IV fluids. Remaining family history and past medical history is not obtainable. PHYSICAL EXAMINATION: Reveals a well-developed, 76-year-old, white male who was awake and alert, and in some [id number] respiratory distress with conversational dyspnea. His blood pressure was 143/82, with a pulse rate of 96. HEENT examination is unremarkable. Neck is supple without thyromegaly or lymphadenopathy. He had significant jugular venous distention up to the lower angle of the jaw, sitting up. The patient stated he was more comfortable sitting up and leaning forward. Lungs showed diffuse rales in all lung rice, along with end-expiratory wheezes in all lung rice. Heart was irregular and somewhat difficult to hear because of the coarse lung sounds. Abdomen is markedly distended and a free fluid wave is noted. He has evidence of right upper quadrant tenderness, pulsatile liver, and significant hepatojugular reflux. There is pitting throughout his sacrum all the way down to his feet. His extremities showed moderate to severe pitting edema with anasarca. Extremities otherwise did not show any clubbing or cyanosis. Skin turgor was good and there was no evidence of any rashes. LABORATORY EXAMINATION: This morning, his sodium is 138, potassium 5.3, chloride 99, bicarbonate 20. BUN and creatinine were 62 and 1.28, respectively. His white count is 15.8, hemoglobin 15.2, hematocrit 46.8. Red cell indices and platelet count were normal. IMPRESSION: 1. Acute decompensated biventricular congestive heart failure. 2. Anasarca. 3. Cardiorenal syndrome. 4. Chronic obstructive pulmonary disease. RECOMMENDATION: I will go ahead and give him 25 mg of chlorthalidone right now and 100 mg of IV Lasix stat. We also need to get an emergent evaluation for possible paracentesis to relieve his increased intra-abdominal pressure. This is clearly congestive heart failure. I would also like to add ipratropium to his nebulizer treatment. I would like to thank you for allowing me to participate in the care of this rather unfortunate patient, and I am hoping we can get his cardiovascular and fluid status corrected. Corrected by GS 01/18/17 at 12:36am DOS.
--- NOTE | 2016-12-10 06:17 | NUR ---
NOC. Pt was a little anxious when first assessed. HE had visitors present and it seemed to make him more anxious. HE was found at shift start with urine all the way down his jeans. PT is receiving large doses of lasix. HE also voided several times in the toilet, so it has been hard to maintain accurate I/O's. PT's mentation is forgetful. HE does answer mentation questions appropriately, but is "off" per family. They were wanting a cognitive eval, but I explained this could be r/t infection and to see how he does in a few days. PT has anasarcas, including his abdomen, scrotum and BLE which have +3 pitting edema noted. PT BG was 230 at HS and 208 with recheck. HE is up ad jim in room. PT has been voiding mostly in urinal as of late and has had moderate diuresis noted. LUngs are very tight and diminished t/o. No wheezes heard. PT denies any pain. PT agreed to go back on tele and has been in NSR with PAC and PVC's., HE did have one run of 9 beats of vtach this am. was tomas pagekaylin in regards. NO interventions ordered. WIll CTM.
[2016-12-10 06:36] LABS: BASOPHILS % (AUTO) 0 % (0-3); EOSINOPHILS % (AUTO) 0.7 % (0-5); MONOCYTES % (AUTO) 8.4 % (4-12); Mean Corpuscular Hemoglobin 28.7 pg (27.0-35.0); Mean Corpuscular Volume 85.1 fL (81-100); NEUTROPHILS % (AUTO) 84.7 % (40-74); Platelet Count 146 bil/L (150-400)
[2016-12-10 07:19] LABS: Magnesium 2.3 mg/dL (1.6-2.6)
[2016-12-10] MEDS: Insulin LISPRO 300 Unit/3 mL Inj SUBQ SCH ×4 (08:00→22:00)
[2016-12-10] MEDS: Albuterol-Ipratropium 3 mL Inhalation Solution NEB SCH ×4 (08:27→20:43)
--- NOTE | 2016-12-10 09:28 | NUR ---
Telemetry Update: Frequent Ectopy, VTACH Patient has been Sinus Rhythm 80-100s with frequent multiform PVC pairs and triplets. Patient has had multiple runs of VTACH this mornin:24 - 5bt 07:39 - 5bt 07:43 - 5bt 08:41 - 5bt 08:49 - 5bt 08:52 - 5bt 08:58 - 5bt 09:12 - 5bt 09:14 - 5bt 09:17 - 5bt 09:20 - 6bt 09:26 - 5bt ANABELLE De Oliveira aware of all VTACH runs. Will alert with runs 8 beats or greater. Addendum: 12/10/16 at 1432 by ODALYS BARNHART 10:13 - 6bt 10:17 - 7bt 10:21 - 10bt 11:07 - 9bt 11:47 - 8bt 13:06 - 8bt 13:35 - 5bt 13:00 - 11bt 12:56 - 5bt 12:52 - 8bt
--- NOTE | 2016-12-10 10:43 | NUR ---
Vtach per tele, pt experiencing frequent 5-7bts of vtach. Primary Dr aware, will continue to monitor. Pt asymptomatic. With 1st call from tele today, pt appeared to be asleep. Up in chair for bfast with friends at bedside. Pt denies chest pain/discomfort.
--- NOTE | 2016-12-10 11:38 | PCM.PNNEPH ---
Subjective Date of Service Dec 10, 2016 Subjective The patient has had a marked improvement in his breathing in the last 24 hours with aggressive diuretic therapy. He is more comfortable and has considerably less conversational dyspnea. He denies any chest pain. His intake and output for the last 24-hour showed 1997 in and 1375 out. She is 06/13/1949 out. He, potassium 4.2, chloride 95, bicarbonate 26, BUN and creatinine were 55 and 1.21 respectively. An improvement over his previous lab. Exam Vital Signs Vital Sign - Last Date Time Temp Pulse Resp B/P Pulse Ox O2 Delivery O2 Flow Rate FiO2 12/10/16 10:47 95 12/10/16 08:50 36.8 16 113/67 95 Room Air 12/08/16 16:30 1.50 Intake and Output 12/09/16 12/09/16 12/10/16 Cumulative From/Thru 15:00 23:00 07:00 12/07/16 17:27 - 12/10/16 06:06 Intake Total 1200 ml 700 ml 5492 ml Output Total 1025 ml 1850 ml 3625 ml Balance 175 ml -1150 ml 1867 ml Intake Oral 1200 ml 700 ml 5477 ml IV Total 15 ml Output Urine Total 1025 ml 1850 ml 3625 ml # Voids 2 3 # Bowel Movements 0 0 0 Exam HEENT examination was unremarkable. Neck is supple without adenopathy or thyromegaly. He still has moderate jugular venous distention at 90 but this appears to be a blood loss. Pulmonary exam shows increased AP diameter and diffuse end expiratory wheezes. Rales are still present but appear to be more in the lower half of both lung rice. Heart is regular; soft systolic murmur. Abdomen remains distended and semi-formed. Was pulsatile with hepatojugular reflux noted. His extremities continue to demonstrate pitting edema IN his sacrum but this appears to be a bit improved also. Lab and Diagnostics Result Diagram: 12/10/16 0600 12/10/16 06 X-Rays, CTs and MRIs X-RAY CHEST ONE VIEW, PORTABLE IMPRESSION: Low lung volumes with diffuse consolidative and groundglass opacities which could represent multifocal pneumonia and/or aspiration. Please correlate clinically to exclude pulmonary edema. Recommend continued radiographic followup Dictated by: Nino Bolanos M.D. on 12/07/2016 at 18:48 Approved by: Nino Bolanos M.D. on 12/07/2016 at 18:51 Plan Impression Impression #1 acute decompensated biventricular congestive heart failure number to cardiorenal syndrome #3 anasarca #4 COPD Recommendations #1 I would continue him on IV diuretics for at least another day or 2 and get his volume status considerably improved before switching him to oral. Turner Salter DO Dec 10, 2016 11:38
--- NOTE | 2016-12-10 14:10 | PCM.PNMED ---
Subjective Date of Service Dec 10, 2016 Subjective says agreeable to stay for treatment now. Denies any SOB, nausea, vomiting, abdominal pain. no other new issues/complaints. Exam Vital Signs Vital Sign - Last Date Time Temp Pulse Resp B/P Pulse Ox O2 Delivery O2 Flow Rate FiO2 12/10/16 13:16 36.3 84 18 105/61 97 Room Air 12/08/16 16:30 1.50 Intake and Output 12/09/16 12/09/16 12/10/16 Cumulative From/Thru 15:00 23:00 07:00 12/07/16 17:27 - 12/10/16 06:06 Intake Total 1200 ml 700 ml 5492 ml Output Total 1025 ml 1850 ml 3625 ml Balance 175 ml -1150 ml 1867 ml Intake Oral 1200 ml 700 ml 5477 ml IV Total 15 ml Output Urine Total 1025 ml 1850 ml 3625 ml # Voids 2 3 # Bowel Movements 0 0 0 Exam General: Alert, Oriented X3, Cooperative, No Acute Distress Head: Normal Eyes: Scleral Anicteric Mouth: Mucous Membr Moist/[place] Neck: Supple Chest & Lungs: Chest Wall Normal, mild bibasilar crackles Cardiovascular: Regular Rate/Rhythm Pulses: NL carotid, radial, femoral, DP, PT Abdomen: Non-tender, Distended, Normoactive bowel tones, Soft Extremities: Edema (3+ pitting edema up to the abdomen) Neurological: Grossly Neurologically Intact, Normal Speech Psych: Appropriate. Seems in good spirit despite news about his medical condition IVs and Medications Medications Reviewed: Medications were reviewed in detail Lab and Diagnostics Result Diagram: 12/10/16 0600 12/10/16 0600 X-Rays, CTs and MRIs Date of Service: 12/07/16 1752 PROCEDURE: X-RAY CHEST ONE VIEW, PORTABLE ([id number]) IMPRESSION: Low lung volumes with diffuse consolidative and groundglass opacities which could represent multifocal pneumonia and/or aspiration. Please correlate clinically to exclude pulmonary edema. Recommend continued radiographic followup Dictated by: Nino Bolanos M.D. on 12/07/2016 at 18:48 Approved by: Nino Bolanos M.D. on 12/07/2016 at 18:51 Cardiac Echo Impressions Date of Service: 12/08/16 0800 Echocardiogram Report Interpretation Summary The left ventricle is moderate-severely dilated and left ventricular systolic function is severely reduced with the ejection fraction estimated to be 10- 15%. There is a significant dyssynchronous contraction pattern, consistent with a conduction abnormality with severe global hypokinesis that is worse at the apex and the entire posterior wall which appear to be essentially akinetic. Trabeculae near apex are visualized but a thrombus can not be excluded. Diastolic function could not be accurately assessed due to unobtainable data. The right ventricle is mildly dilated. Right ventricular systolic function is severely reduced. The right ventricular systolic pressure is estimated at 49 mmHg assuming a right atrial pressure of 15 mm Hg. The left atrium is moderately dilated and the right atrium is mildly dilated. There is moderate mitral annular calcification with probable moderate mitral regurgitation and minimal to mild mitral stenosis. There is moderate tricuspid regurgitation. The aortic valve is slightly calcified with mild to moderate aortic regurgitation but no aortic valve stenosis. There is mild to moderate pulmonic regurgitation. The ascending aorta and aortic arch are at the upper limits of normal in size. Reading Physician:04:38 PM Additional Diagnostics Date of Service: 12/08/16 1721 PROCEDURE: US ABDOMEN ([id number]) IMPRESSION: 1. Contracted gallbladder. No gallstones. There is gallbladder wall thickening, which may be secondary to inadequate distention. 2. A small amount of ascites. 3. Small left effusion. 4. Mild splenomegaly. 5. Small simple appearing exophytic right renal cyst. 6. Pancreas obscured by overlying bowel gas. Dictated by: Jairo Aviles M.D. on 12/08/2016 at 19:05 Approved by: Jairo Aviles M.D. on 12/08/2016 at 19:10 Assessment & Plan 76 y/o M with memory issues and a hx of CAD s/p CABG twenty yrs ago, DM type 2, HTN and COPD who presented to the ED with the complaint of increased redness and swelling in his legs for the past three days. Admitted for further evaluation and management of CHF, COPD exacerbation and probable pneumonia. 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 Active. -Echocardiogram showing EF 10-15% -appreciate nephrology consult. Will followup with recommendation -continue with IV diuresis per nephrology recommendations -monitor I/Os, daily weight -consider cardiology consult in next day or two to optimize cardiac treatment # Anasarca, suspect acute and present on admission. ongoing -likely due to heart failure noted above -continue with diuresis as noted above -abdominal ultra sound on 12/08 with only small ascites. nephrology consult recommendation for paracentesis noted. will discuss with interventional radiology in am if able to get any fluid off. # Acute on chronic COPD exacerbation, reported as present on admission. Currently seems resolved and stable -50+ pack-year smoking history. Ongoing tobacco use. -sputum culture, ordered -received 125mg IV Solu-Medrol in ED. -continue to hold Prednisone given no significant wheezing noted on exam and presenting pulmonary symptoms likely acute CHF -continue with Nebs # ? Acute community acquired pneumonia, present on admission. -doubt this diagnosis given normal WBC, negative procalcitonin, afebrile and given clinical picture -suspect CXR findings likely edema as opposed to infiltrate -received 2g ceftriaxone, 125mg IV Solu-Medrol, DuoNeb x1in the ED -continue to hold antibiotics and follow clinically # Elevated troponin, present on admission. normalized on repeat -patient remains asymptomatic for chest pain -likely secondary to demand ischemia, acute exacerbation of CHF -echo as noted above # Hyperkalemia, unknown chronicity, present on admission. Resolved -followup repeat labs in am after diuresis # Hypertension (chronic), poa. Ongoing -home medications, held on admission for low BPs # Diabetes mellitus, type 2 (chronic), present on admission. Ongoing -held home metformin and glimepiride -ISS # Hyperlipidemia (chronic), poa. Ongoing -continue home statin Dispo: 3-4 days GI Prophylaxis: Not indicated VTE Prophylaxis: Sub-Q Heparin (Unfractionated) VTE Mechanical Devices: Venous Foot Pump Resuscitation Status: CPR: Attempt Resuscitation Ramses Oconnell Dec 10, 2016 14:10
--- NOTE | 2016-12-10 14:17 | PCM.ADCARE ---
Advance Care Planning Note Purpose of Encounter: Goals of care Parties in Attendance: Patient, physician, patient' friend Decisional Capacity: decisional. expresses adequate insight in to his medical condition Subjective: reports ongoing lower extremity edema. otherwise, denies any chest pain, shortness of breath, abdominal pain, nausea, vomiting, diarrhea, constipation. Objective: General: Alert, Oriented X3, Cooperative, No Acute Distress Head: Normal Eyes: Scleral Anicteric Mouth: Mucous Membr Moist/[place] Neck: Supple Chest & Lungs: Chest Wall Normal, mild bibasilar crackles Cardiovascular: Regular Rate/Rhythm Pulses: NL carotid, radial, femoral, DP, PT Abdomen: Non-tender, Distended, Normoactive bowel tones, Soft Extremities: Edema (3+ pitting edema up to the abdomen) Neurological: Grossly Neurologically Intact, Normal Speech Psych: Appropriate. Seems in good spirit despite news about his medical condition Goals of Care Determinations: patient had indicated on 12/10/16 that he wanted to go home and think about his medical condition and then decide if he should come back to hospital or not. Today he indicates that his goal to is to improve as much as possible and to that end is willing to stay in the hospital as long as possible. He wishes to be full code at this point although says may reconsider at later date and wants to be told the truth about his medical condition. His ultimate goal currently is to improve enough to go home so he can see his family, children, and friends. Plan: Continue with current medical management as noted in my progress note from earlier today CODE STATUS: Full code Time Spent Adv.Care Plannin min Adv. Care Plan Documenation: as noted above Ramses Oconnell Dec 10, 2016 14:17
[2016-12-10] MEDS: Alum-Mag Hydrox-Simeth 30 mL Suspension PO PRN (19:39)
[2016-12-11] VITALS (12 sets, daily range): BP systolic 100–135; BP diastolic 59–73; PULSE 52–111; RESP 16–22; O2SAT 91–97
--- NOTE | 2016-12-11 00:53 | NUR ---
Telemetry food technician notified that patient has been having constant multifocal PVC's. Patient asymptomatic, vitals stable. Pagekaylin YATES, new order received to do AM labs now. Changed to stat, notified lab.
--- NOTE | 2016-12-11 01:18 | NUR ---
Multifocal biofuels technology development manager cynthia called for constant multi-focal PVC's. notified ordered for stat BMP and Mag. Ordered to hold Lasix and resume when Labs are stable. Pt is asymptomatic and denies and chest pain, sob, n/v. Continuing to monitor. Addendum: 12/11/16 at 0422 by CAMILA SANTA RN 7 beats of V-tach reported by monitor cynthia. Pt is asymptomatic. Denies chest pain. notified. Will continue to monitor.
[2016-12-11] MEDS: Heparin 5,000 Unit/mL Inj SUBQ SCH ×3 (01:21→16:42)
[2016-12-11] MEDS: Albuterol-Ipratropium 3 mL Inhalation Solution NEB SCH ×4 (02:30→20:10)
[2016-12-11 02:43] LABS: Magnesium 2.2 mg/dL (1.6-2.6)
[2016-12-11] MEDS: Furosemide 10 mg/mL 10 mL Inj IVPUSH SCH ×3 (03:02→16:42)
[2016-12-11] MEDS: Insulin LISPRO 300 Unit/3 mL Inj SUBQ SCH ×4 (08:00→20:09)
--- NOTE | 2016-12-11 10:25 | PCM.CONPAL ---
Date of Service Dec 11, 2016 Date of Hospital Admission: Dec 07, 2016 at 19:55 Date of Palliative Consult: Dec 12, 2016 Requesting Provider: Ramses Oconnell Reason Palliative Care Consult: Goals of Care Discussion Reason for Consultation Palliative Care received verbal order from Dr Oconnell 12/11/16 to assist with goals of care. Patient is a 76 year old man with memory issues and a hx of CAD s /p CABG twenty yrs ago, DM type 2, HTN and COPD. He was admitted 12/07/16 for care of CHF, COPD exacerbation and probable pneumonia. Patient lives home alone. Lui Juan (son/DPOA) [phone] Judith Juan (daughter/DPOA) [phone] Hospital Unit @time of consult: Medical/Pediatric Care (room 3015) Palliative Care Recommendation Summary of palliative recommendations: -Symptom management (Pain/other): per Attending (currently Dr. Oconnell). Dr. Oconnell informed of family conference held 12/12 and he thinks pt will need a few more days inpatient prior to discharge. -DPOA/Advanced Directives/POLST: 1. Code: FULL CODE changed 12/12 to DNR/DNI 2. AD paperwork done, adult children aware of pt's wishes 3. DPOAs: paperwork done, son and daughter share responsibility as DPOA to help Dad if he cannot make his own decisions 4. POLST: pt signed POLST 12/12 stating DNR/DNI/limited interventions with hope to avoid re-hospitalization in the future. -Family/emotional support: excellent support from his son and daughter who serve as co-HCPOAs. -Spiritual support: pt is a lapsed [employer] and doesn't have much interest in restoration. Dtr hopes he will listen to family/friends and return to faith for support. Problems: Resuscitation Status Resuscitation Status: CPR: Attempt Resuscitation Additional Information Tube feeding not discussed today and is not addressed on 12/12 POLST. POLST Updates/Changes Previous POLST?: No POLST Last Review Date: Dec 12, 2016 Antibiotics: Determine Use or Limitations POLST Review Outcome: New Form Completed . Advanced Care Planning Address: POLST, Code status change, Durable Power of Tableau Administrator Symptom management: Dyspnea Pt History History of Present Illness Patient is a 76 year old male with past medical history significant for CAD s/ p 5 vessel CABG in 1998, CHF with reduced EF, DM type 2, HTN, COPD, and tobacco use who presented to the ED with complaint of increasing swelling and redness in lower extremities. He denies any additional symptoms. Patient's son and daughter note that on admission he was more ill-appearing and struggled cognitively compared to his baseline. There is concern for medication compliance. Patient lives at home alone and receives pill packs prepared at [facility]. He was referred to cardiology but did not present to appointment. He is admitted for CHF exacerbation. This is hospital day 5. Hospital Course: Echocardiogram was completed and revealed and EF of 10-15%. Patient has been aggressively diuresed and placed back on appropriate CHF regimen and shown significant improvement. He has threatened to leave AMA and was found smoking in the bathroom but has agreed to stay at this time. Subjective: Patient is alert and oriented. 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 Living Situation: Alone Palliative Performance Scale PPS Ambulation: Full PPS Self-Care: Full Self Care PPS Intake: Normal ADLs ADL Ambulation: Full ADL Dressing: Full ADL Feeding: Full ADL Hygene/bathing: Full ADL Transfers: Full Medications Current Medications: Current Medications Chlorthalidone 25 mg DAILY PO Last administered on 12/11/16 07:22; Admin Dose 25 MG; Start 12/09/16 at 13:00 Furosemide 80 mg Q8 IVPUSH Last administered on 12/11/16 07:23; Admin Dose 80 MG; Start 12/09/16 at 16:30 Albuterol/ Ipratropium 3 ml Q6 NEB Last administered on 12/10/16 20:43; Admin Dose 3 ML; Start 12/09/16 at 14:30 Nicotine 1 patch DAILY TOPICAL Last administered on 12/11/16 07:23; Admin Dose 1 PATCH; Start 12/09/16 at 14:05 Scheduled Ascorbic Acid (Vitamin C) 1,000 Mg Tab.chew 1,000 MG PO DAILY Atorvastatin Calcium (Atorvastatin Calcium) 40 Mg Tablet 40 MG PO DAILY Glimepiride (Glimepiride) 4 Mg Tablet 4 MG PO BID Hydrochlorothiazide (Hydrochlorothiazide) 25 Mg Tablet 25 MG PO DAILY Metformin (Metformin) 500 Mg Tablet 1,000 MG PO BID Metoprolol Succinate ER (Toprol XL) 50 Mg Tablet 50 MG PO DAILY Multivitamin (Multi Vitamin Daily) 1 Each Tablet 1 EACH PO DAILY Niacin ER (Niaspan) 1,000 Mg Tablet 2,000 MG PO DAILY Ramipril (Ramipril) 10 Mg Capsule 10 MG PO DAILY Scheduled PRN Albuterol HFA (Proair HFA) 8.5 Gm Hfa.aer.ad 2 PUFFS INH Q4H PRN PRN For Shortness of Breath Miscellaneous Medications Aspirin (Aspirin) 325 Mg Tablet 325 MG PO Folic Acid (Folic Acid) 0.4 Mg Tablet 0.4 MG PO Vitamin E (Dl,Tocopheryl Acet) (Vitamin E) 400 Unit Capsule 400 UNIT PO Objective Findings Exam Vital Sign - Last Date Time Temp Pulse Resp B/P Pulse Ox O2 Delivery O2 Flow Rate FiO2 12/11/16 09:49 36.4 111 20 113/59 94 Room Air 12/08/16 16:30 1.50 Intake and Output 12/10/16 12/10/16 12/11/16 Cumulative From/Thru 15:00 23:00 07:00 12/07/16 17:27 - 12/11/16 05:39 Intake Total 1236 ml 6728 ml Output Total 2020 ml 5645 ml Balance -784 ml 1083 ml Intake Oral 1236 ml 6713 ml IV Total 15 ml Output Urine Total 2020 ml 5645 ml # Voids 3 # Bowel Movements 0 0 General: Alert/Oriented x3, Person, Place, Time, Situation, No acute distress HEENT: Atraumatic, PERRLA, EOMI, Scleral Anicteric Heart: Regular Rate/Rhythm Lungs: Clear to Auscultation Abdomen: Benign Neuro: Exam Intact, Arousable, Follows Commands, Spontaneous Eye Opening, Speech Extremities: Warm, Generalized Edema (2+) Patient/Family Conference Discussion/Goals of Care Discussion: Dr. Marsh, Ramya Luke, dtr Mayda (who is co-HCPOA for patient) and patient, Antonio Juan met at pt's bedside today, 12/12. FAMILY UNDERSTANDING OF DISEASE: Daughter Mayda and pt have limited understanding of end-stage heart failure and Dr. Marsh counseled them extensively on meaning of pt's ECHO and EF of 10-15%, as well as prognosis of six months or less. DISEASE PROGRESSION/EVIDENCE OF DECLINE: Mayda and her brother Lui have notices more signs of functional decline. They were not sure why pt was more forgetful, less interested in hygiene, forgetting to take his blister packed-pills, and neglecting himself in terms of self-care and preparing meals for himself. They feel the changes were slow but more progressive in last 6 months or so. SYMPTOM BURDEN: leg swelling, fatigue, shortness of breath with minimal exertion FAMILY GOALS: 1. Now that patient understands what heart failure is and his likely prognosis, he wants to live closer to his family (who are in [facility]). 2. Pt is willing to live in an assisted nursing facility so someone can help administer his medications and check in on him. 3. Pt is now aware that Hospice is an option for him. He and his family will consider signing up with hospice after he is relocated in the [facility]. 4. Dtr Mayda assured patient that she and Lui will watch pt's house in [facility] and his beloved [employer] cars there. Time spent Total time 70 minutes; >50% face to face with patient and/or family, providing counselling regarding plans and recommendations, and in care coordination with his/her medical teams. I also spent an additional 60 minutes counseling for advanced care planning with the patient/the patients family/the surrogate decision maker. Attending Statement Dr. Marsh and Dr. Thomas worked together to gather information from family and patient. Later Dr. Marsh completed note that Dr. Thomas had initiated. Dr. Marsh approves of the management plan as stated above and has communicated this plan to the Attending. Ramya Luke ([facility]) has communicated plan to CM worker on third floor. LONG THOMAS DO Dec 11, 2016 10:25 Araceli Marsh MD Dec 12, 2016 10:07
--- NOTE | 2016-12-11 10:43 | NUR ---
Palliative Care Palliative Care received verbal order from Dr Oconnell 12/11/16 to assist with goals of care. Patient is a 76 year old man with memory issues and a hx of CAD s/p CABG twenty yrs ago, DM type 2, HTN and COPD. He was admitted 12/07/16 for care of CHF, COPD exacerbation and probable pneumonia. Patient lives home alone. Lui Drake (son/DPOA) [phone] Judith Juan (daughter/DPOA) [phone] Palliative Care to follow. Aniya Ovalles
--- NOTE | 2016-12-11 10:47 | NUR ---
pt continues to ask if he can leave today. This RN suggested that the pt wait until the MD has determined that he is medically safe to leave. ot agrees with the current plan, but states that he is still considering leaving.
--- NOTE | 2016-12-11 11:47 | NUR ---
glucose high pt's blood glucose read "high" on hospital glucose monitor. STAT glucose lab ordered. This RN will administer insulin based on lab draw.
--- NOTE | 2016-12-11 12:47 | NUR ---
wanting to leave pt is dressed and asking where the exit is. This RN talked with pt and encouraged him to re-consider leaving. This RN pointed out how swollen pt's legs and feet are and explained it wasn't safe for him to go home and be alone. pt agrees to stay one more night after conversation with RN.
--- NOTE | 2016-12-11 14:27 | PCM.PNMED ---
Subjective Date of Service Dec 11, 2016 Subjective Denies any SOB, nausea, vomiting, abdominal pain. no other new issues/ complaints but says wants to go home AMA today. After further talk agrees to stay to meet with palliative care and nephrology. Exam Vital Signs Vital Sign - Last Date Time Temp Pulse Resp B/P Pulse Ox O2 Delivery O2 Flow Rate FiO2 12/11/16 10:33 99 12/11/16 09:49 36.4 20 113/59 94 Room Air 12/08/16 16:30 1.50 Intake and Output 12/10/16 12/10/16 12/11/16 Cumulative From/Thru 15:00 23:00 07:00 12/07/16 17:27 - 12/11/16 05:39 Intake Total 1236 ml 6728 ml Output Total 2020 ml 5645 ml Balance -784 ml 1083 ml Intake Oral 1236 ml 6713 ml IV Total 15 ml Output Urine Total 2020 ml 5645 ml # Voids 3 # Bowel Movements 0 0 Exam General: Alert, Oriented X 3, Cooperative, No Acute Distress Head: Normal Eyes: Scleral Anicteric Mouth: Mucous Membr Moist/[place] Neck: Supple Chest & Lungs: Chest Wall Normal, mild bibasilar crackles Cardiovascular: Regular Rate/Rhythm Pulses: NL carotid, radial, femoral, DP, PT Abdomen: Non-tender, Distended, Normoactive bowel tones, Soft Extremities: Edema (3+ pitting edema up to the abdomen) Neurological: Grossly Neurologically Intact, Normal Speech Psych: Appropriate. Seems in good spirit despite news about his medical condition IVs and Medications Medications Reviewed: Medications were reviewed in detail Lab and Diagnostics Result Diagram: 12/10/16 0600 12/11/16 1148 X-Rays, CTs and MRIs Date of Service: 12/07/16 1752 PROCEDURE: X-RAY CHEST ONE VIEW, PORTABLE ([id number]) IMPRESSION: Low lung volumes with diffuse consolidative and groundglass opacities which could represent multifocal pneumonia and/or aspiration. Please correlate clinically to exclude pulmonary edema. Recommend continued radiographic followup Dictated by: Nino Bolanos M.D. on 12/07/2016 at 18:48 Approved by: Nino Bolanos M.D. on 12/07/2016 at 18:51 Cardiac Echo Impressions Date of Service: 12/08/16 0800 Echocardiogram Report Interpretation Summary The left ventricle is moderate-severely dilated and left ventricular systolic function is severely reduced with the ejection fraction estimated to be 10- 15%. There is a significant dyssynchronous contraction pattern, consistent with a conduction abnormality with severe global hypokinesis that is worse at the apex and the entire posterior wall which appear to be essentially akinetic. Trabeculae near apex are visualized but a thrombus can not be excluded. Diastolic function could not be accurately assessed due to unobtainable data. The right ventricle is mildly dilated. Right ventricular systolic function is severely reduced. The right ventricular systolic pressure is estimated at 49 mmHg assuming a right atrial pressure of 15 mm Hg. The left atrium is moderately dilated and the right atrium is mildly dilated. There is moderate mitral annular calcification with probable moderate mitral regurgitation and minimal to mild mitral stenosis. There is moderate tricuspid regurgitation. The aortic valve is slightly calcified with mild to moderate aortic regurgitation but no aortic valve stenosis. There is mild to moderate pulmonic regurgitation. The ascending aorta and aortic arch are at the upper limits of normal in size. Reading Physician:04:38 PM Additional Diagnostics Date of Service: 12/08/16 1721 PROCEDURE: US ABDOMEN ([id number]) IMPRESSION: 1. Contracted gallbladder. No gallstones. There is gallbladder wall thickening, which may be secondary to inadequate distention. 2. A small amount of ascites. 3. Small left effusion. 4. Mild splenomegaly. 5. Small simple appearing exophytic right renal cyst. 6. Pancreas obscured by overlying bowel gas. Dictated by: Jairo Aviles M.D. on 12/08/2016 at 19:05 Approved by: Jairo Aviles M.D. on 12/08/2016 at 19:10 Assessment & Plan 76 y/o M with memory issues and a hx of CAD s/p CABG twenty yrs ago, DM type 2, HTN and COPD who presented to the ED with the complaint of increased redness and swelling in his legs for the past three days. Admitted for further evaluation and management of CHF, COPD exacerbation and probable pneumonia. 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 Active. -Echocardiogram showing EF 10-15% -appreciate nephrology consult. Will followup with recommendation -continue with IV diuresis per nephrology recommendations -monitor I/Os, daily weight -consider cardiology consult in next day or two to optimize cardiac treatment # Anasarca, suspect acute and present on admission. ongoing -likely due to heart failure noted above -continue with diuresis as noted above -abdominal ultra sound on 12/08 with only small ascites. nephrology consult recommendation for paracentesis noted. will discuss with interventional radiology if able to get any fluid off. # Acute on chronic COPD exacerbation, reported as present on admission. Currently seems resolved and stable -50+ pack-year smoking history. Ongoing tobacco use. -sputum culture, ordered -received 125mg IV Solu-Medrol in ED. -continue to hold Prednisone given no significant wheezing noted on exam and presenting pulmonary symptoms likely acute CHF -continue with Nebs # ? Acute community acquired pneumonia, present on admission. -doubt this diagnosis given normal WBC, negative procalcitonin, afebrile and given clinical picture -suspect CXR findings likely edema as opposed to infiltrate -received 2g ceftriaxone, 125mg IV Solu-Medrol, DuoNeb x1in the ED -continue to hold antibiotics and follow clinically # Elevated troponin, present on admission. normalized on repeat -patient remains asymptomatic for chest pain -likely secondary to demand ischemia, acute exacerbation of CHF -echo as noted above # Hyperkalemia, unknown chronicity, present on admission. Resolved -followup repeat labs in am after diuresis # Hypertension (chronic), poa. Ongoing -home medications, held on admission for low BPs # Diabetes mellitus, type 2 (chronic), present on admission. Ongoing -held home metformin and glimepiride -ISS # Hyperlipidemia (chronic), poa. Ongoing -continue home statin Dispo: 3-4 days if agreeable to stay GI Prophylaxis: Not indicated VTE Prophylaxis: Sub-Q Heparin (Unfractionated) VTE Mechanical Devices: Venous Foot Pump Resuscitation Status: CPR: Attempt Resuscitation Ramses Oconnell Dec 11, 2016 14:27
--- NOTE | 2016-12-11 16:36 | PCM.PNNEPH ---
Subjective Date of Service Dec 11, 2016 Subjective feeling better, no dyspnea at rest. LE swelling somewhat better. Exam Vital Signs Vital Sign - Last Date Time Temp Pulse Resp B/P Pulse Ox O2 Delivery O2 Flow Rate FiO2 12/11/16 14:36 97 16 92 Room Air 12/11/16 14:20 36.6 135/73 12/08/16 16:30 1.50 Intake and Output 12/10/16 12/10/16 12/11/16 Cumulative From/Thru 15:00 23:00 07:00 12/07/16 17:27 - 12/11/16 05:39 Intake Total 1236 ml 6728 ml Output Total 2020 ml 5645 ml Balance -784 ml 1083 ml Intake Oral 1236 ml 6713 ml IV Total 15 ml Output Urine Total 2020 ml 5645 ml # Voids 3 # Bowel Movements 0 0 Exam GA: AAOx3, NAD. HEENT examination was unremarkable. Neck (+) JVD, without adenopathy or thyromegaly. Heart: regular; soft systolic murmur. Lungs: coarse crackles at bases. Prolonged expiratory phase. Abdomen: soft, NT, ND, no HSM. Ext: 3+ edema. Lab and Diagnostics Result Diagram: 12/10/16 0600 12/11/16 1148 X-Rays, CTs and MRIs Date of Service: 12/07/16 1752 PROCEDURE: X-RAY CHEST ONE VIEW, PORTABLE ([id number]) IMPRESSION: Low lung volumes with diffuse consolidative and groundglass opacities which could represent multifocal pneumonia and/or aspiration. Please correlate clinically to exclude pulmonary edema. Recommend continued radiographic followup Dictated by: iNno Bolanos M.D. on 12/07/2016 at 18:48 Approved by: Nino Bolanos M.D. on 12/07/2016 at 18:51 Cardiac Echo Impressions Date of Service: 12/08/16 0800 Echocardiogram Report Interpretation Summary The left ventricle is moderate-severely dilated and left ventricular systolic function is severely reduced with the ejection fraction estimated to be 10- 15%. There is a significant dyssynchronous contraction pattern, consistent with a conduction abnormality with severe global hypokinesis that is worse at the apex and the entire posterior wall which appear to be essentially akinetic. Trabeculae near apex are visualized but a thrombus can not be excluded. Diastolic function could not be accurately assessed due to unobtainable data. The right ventricle is mildly dilated. Right ventricular systolic function is severely reduced. The right ventricular systolic pressure is estimated at 49 mmHg assuming a right atrial pressure of 15 mm Hg. The left atrium is moderately dilated and the right atrium is mildly dilated. There is moderate mitral annular calcification with probable moderate mitral regurgitation and minimal to mild mitral stenosis. There is moderate tricuspid regurgitation. The aortic valve is slightly calcified with mild to moderate aortic regurgitation but no aortic valve stenosis. There is mild to moderate pulmonic regurgitation. The ascending aorta and aortic arch are at the upper limits of normal in size. Reading Physician:04:38 PM Additional Diagnostics Date of Service: 12/08/16 1721 PROCEDURE: US ABDOMEN ([id number]) IMPRESSION: 1. Contracted gallbladder. No gallstones. There is gallbladder wall thickening, which may be secondary to inadequate distention. 2. A small amount of ascites. 3. Small left effusion. 4. Mild splenomegaly. 5. Small simple appearing exophytic right renal cyst. 6. Pancreas obscured by overlying bowel gas. Dictated by: Jairo Aviles M.D. on 12/08/2016 at 19:05 Approved by: Jairo Aviles M.D. on 12/08/2016 at 19:10 Plan Impression 1. LO due to CRS 2. HErEF 3. Anasarca 4. COPD Plan: Add losartan Continue IV loop diuretics. Continue chlorthalidone. Low Na diet 2g, daily weight. Cardiology consultation. Raffi Shepherd MD Dec 11, 2016 16:36
--- NOTE | 2016-12-11 16:43 | NUR ---
Social Work - Continued Discharge Planning Data: Pt is on day 4 of hospitalization for pneumonia, CHF, exacerbated COPD. EMR reviewed. Pt discussed in morning rounds and will likely be here for several more days. Pt has been stating he wants to leave. SW met with pt at bedside and he said he would like to leave tomorrow. SW reiterated MD's recommendations. FRANCISCA spoke to pt's son Lui [phone] via phone to discuss longer term planning and options available to the pt including SNF, assisted living, in-home care and HH. No PT assessment completed. SW agreed to leave [employer] handbook in pt's room and can continue to be a resource as discharge approaches. Pt likely to discharge home via family. SW will continue to follow. Assessment: Pt who is independent at baseline. Plan: Pt to discharge home via POV. Social work will continue to follow for needs. NAE Mccarthy
--- NOTE | 2016-12-11 22:06 | NUR ---
Multi-Focal PVC's and V-tach Pt having multi focal pvc's and v-tach per monitor cynthia. Pt is asymptomatic. No complains of chest pain or sob. notified and ordered a stat mag and Potassium. Will continue to monitor.
[2016-12-11 22:30] LABS: Magnesium 2.1 mg/dL (1.6-2.6)
[2016-12-12] VITALS (10 sets, daily range): BP systolic 99–117; BP diastolic 54–69; PULSE 54–109; RESP 18–22; O2SAT 92–98
[2016-12-12] MEDS: Furosemide 10 mg/mL 10 mL Inj IVPUSH SCH ×3 (01:27→17:53)
[2016-12-12] MEDS: Heparin 5,000 Unit/mL Inj SUBQ SCH ×3 (01:27→17:53)
[2016-12-12] MEDS: Albuterol-Ipratropium 3 mL Inhalation Solution NEB SCH ×4 (02:17→20:32)
--- NOTE | 2016-12-12 05:23 | NUR ---
Noc activity Pt denies chest pain. Telemetry reported pt having constant pvc's and v-tach. Pt is asymptomatic with episodes. MD was notified and aware. Denies sob, n/v or abd discomfort. Has been confused and forgetful but frequent re-orientation to present situation helps. Blood sugar checks done and insulin administered as per sliding scale. VSS and has been afebrile overnight. Continuing to monitor.
[2016-12-12] MEDS: Insulin LISPRO 300 Unit/3 mL Inj SUBQ SCH ×4 (08:07→22:00)
[2016-12-12] MEDS ORDERED: Potassium Chloride 20 mEq SR Tablet PO ONE (11:25)
--- NOTE | 2016-12-12 13:00 | PCM.PNNEPH ---
Subjective Date of Service Dec 12, 2016 Subjective Serum cr continues to normalize. Persistent LE swelling noted. Complaining of dyspnea on exertion. Exam Vital Signs Vital Sign - Last Date Time Temp Pulse Resp B/P Pulse Ox O2 Delivery O2 Flow Rate FiO2 12/12/16 10:36 104 12/12/16 10:31 36.1 20 116/68 95 Room Air 12/08/16 16:30 1.50 Intake and Output 12/11/16 12/11/16 12/12/16 Cumulative From/Thru 15:00 23:00 07:00 12/07/16 17:27 - 12/12/16 06:42 Intake Total 400 ml 1000 ml 600 ml 8728 ml Output Total 825 ml 6470 ml Balance -425 ml 1000 ml 600 ml 2258 ml Intake Oral 400 ml 1000 ml 600 ml 8713 ml IV Total 15 ml Output Urine Total 825 ml 6470 ml # Voids 3 3 9 # Bowel Movements 0 0 0 0 Exam GA: AAOx3, NAD. HEENT: atraumatic, no pallor, no icteric sclerae. Neck (+) JVD, without adenopathy or thyromegaly. Heart: regular; soft systolic murmur. Lungs: coarse crackles at bases. Prolonged expiratory phase. Abdomen: soft, NT, ND, no HSM. Ext: 3+ edema. Lab and Diagnostics Result Diagram: 12/10/16 0600 12/12/16 0915 X-Rays, CTs and MRIs Date of Service: 12/07/16 1752 PROCEDURE: X-RAY CHEST ONE VIEW, PORTABLE ([id number]) IMPRESSION: Low lung volumes with diffuse consolidative and groundglass opacities which could represent multifocal pneumonia and/or aspiration. Please correlate clinically to exclude pulmonary edema. Recommend continued radiographic followup Dictated by: Nino Bolanos M.D. on 12/07/2016 at 18:48 Approved by: Nino Bolanos M.D. on 12/07/2016 at 18:51 Cardiac Echo Impressions Date of Service: 12/08/16 0800 Echocardiogram Report Interpretation Summary The left ventricle is moderate-severely dilated and left ventricular systolic function is severely reduced with the ejection fraction estimated to be 10- 15%. There is a significant dyssynchronous contraction pattern, consistent with a conduction abnormality with severe global hypokinesis that is worse at the apex and the entire posterior wall which appear to be essentially akinetic. Trabeculae near apex are visualized but a thrombus can not be excluded. Diastolic function could not be accurately assessed due to unobtainable data. The right ventricle is mildly dilated. Right ventricular systolic function is severely reduced. The right ventricular systolic pressure is estimated at 49 mmHg assuming a right atrial pressure of 15 mm Hg. The left atrium is moderately dilated and the right atrium is mildly dilated. There is moderate mitral annular calcification with probable moderate mitral regurgitation and minimal to mild mitral stenosis. There is moderate tricuspid regurgitation. The aortic valve is slightly calcified with mild to moderate aortic regurgitation but no aortic valve stenosis. There is mild to moderate pulmonic regurgitation. The ascending aorta and aortic arch are at the upper limits of normal in size. Reading Physician:04:38 PM Additional Diagnostics Date of Service: 12/08/16 1721 PROCEDURE: US ABDOMEN ([id number]) IMPRESSION: 1. Contracted gallbladder. No gallstones. There is gallbladder wall thickening, which may be secondary to inadequate distention. 2. A small amount of ascites. 3. Small left effusion. 4. Mild splenomegaly. 5. Small simple appearing exophytic right renal cyst. 6. Pancreas obscured by overlying bowel gas. Dictated by: Jairo Aviles M.D. on 12/08/2016 at 19:05 Approved by: Jairo Aviles M.D. on 12/08/2016 at 19:10 Plan Impression 1. LO due to CRS 2. HErEF 3. Anasarca 4. COPD Plan: Plan: Continue losartan Continue IV loop diuretics. Continue chlorthalidone. will give one more dose of KCL 40 meq. Low Na diet 2g, daily weight. Pending cardiology input. Raffi Shepherd MD Dec 12, 2016 13:00
--- NOTE | 2016-12-12 16:39 | NUR ---
Brief note - SW met with pt and dtr at bedside. Dtr stated she would like pt to go to SNF. SW explained that this woudl be based on PT and nursing recommendations and PT eval has just been ordered. SW agreed to update family when PT recommendations are complete. SW also explained that SNF will likely be short-term and provided contact info for [facility] to assist family in planning for longer-term needs for pt. SW will continue to follow NAE Mccarthy
--- NOTE | 2016-12-12 17:06 | PCM.PNMED ---
Subjective Date of Service Dec 12, 2016 Subjective Denies any SOB, nausea, vomiting, abdominal pain. no other new issues/complaints Exam Vital Signs Vital Sign - Last Date Time Temp Pulse Resp B/P Pulse Ox O2 Delivery O2 Flow Rate FiO2 12/12/16 14:37 85 18 94 Room Air 12/12/16 14:27 36.5 113/54 12/08/16 16:30 1.50 Intake and Output 12/11/16 12/11/16 12/12/16 Cumulative From/Thru 15:00 23:00 07:00 12/07/16 17:27 - 12/12/16 06:42 Intake Total 400 ml 1000 ml 600 ml 8728 ml Output Total 825 ml 6470 ml Balance -425 ml 1000 ml 600 ml 2258 ml Intake Oral 400 ml 1000 ml 600 ml 8713 ml IV Total 15 ml Output Urine Total 825 ml 6470 ml # Voids 3 3 9 # Bowel Movements 0 0 0 0 Exam General: Alert, Cooperative, No Acute Distress Head: Normal Eyes: Scleral Anicteric Mouth: Mucous Membr Moist/[place] Neck: Supple Chest & Lungs: Chest Wall Normal, mild bibasilar crackles Cardiovascular: Regular Rate/Rhythm Pulses: NL carotid, radial, femoral, DP, PT Abdomen: Non-tender, Distended, Normoactive bowel tones, Soft Extremities: Edema (3+ pitting edema up to the abdomen) Neurological: Grossly Neurologically Intact, Normal Speech Psych: Appropriate. IVs and Medications Medications Reviewed: Medications were reviewed in detail Lab and Diagnostics Result Diagram: 12/10/16 0600 12/12/16 0915 X-Rays, CTs and MRIs Date of Service: 12/07/16 1752 PROCEDURE: X-RAY CHEST ONE VIEW, PORTABLE ([id number]) IMPRESSION: Low lung volumes with diffuse consolidative and groundglass opacities which could represent multifocal pneumonia and/or aspiration. Please correlate clinically to exclude pulmonary edema. Recommend continued radiographic followup Dictated by: Nino Bolanos M.D. on 12/07/2016 at 18:48 Approved by: Nino Bolanos M.D. on 12/07/2016 at 18:51 Cardiac Echo Impressions Date of Service: 12/08/16 0800 Echocardiogram Report Interpretation Summary The left ventricle is moderate-severely dilated and left ventricular systolic function is severely reduced with the ejection fraction estimated to be 10- 15%. There is a significant dyssynchronous contraction pattern, consistent with a conduction abnormality with severe global hypokinesis that is worse at the apex and the entire posterior wall which appear to be essentially akinetic. Trabeculae near apex are visualized but a thrombus can not be excluded. Diastolic function could not be accurately assessed due to unobtainable data. The right ventricle is mildly dilated. Right ventricular systolic function is severely reduced. The right ventricular systolic pressure is estimated at 49 mmHg assuming a right atrial pressure of 15 mm Hg. The left atrium is moderately dilated and the right atrium is mildly dilated. There is moderate mitral annular calcification with probable moderate mitral regurgitation and minimal to mild mitral stenosis. There is moderate tricuspid regurgitation. The aortic valve is slightly calcified with mild to moderate aortic regurgitation but no aortic valve stenosis. There is mild to moderate pulmonic regurgitation. The ascending aorta and aortic arch are at the upper limits of normal in size. Reading Physician:04:38 PM Additional Diagnostics Date of Service: 12/08/16 1721 PROCEDURE: US ABDOMEN ([id number]) IMPRESSION: 1. Contracted gallbladder. No gallstones. There is gallbladder wall thickening, which may be secondary to inadequate distention. 2. A small amount of ascites. 3. Small left effusion. 4. Mild splenomegaly. 5. Small simple appearing exophytic right renal cyst. 6. Pancreas obscured by overlying bowel gas. Dictated by: Jairo Aviles M.D. on 12/08/2016 at 19:05 Approved by: Jairo Aviles M.D. on 12/08/2016 at 19:10 Assessment & Plan 76 y/o M with memory issues and a hx of CAD s/p CABG twenty yrs ago, DM type 2, HTN and COPD who presented to the ED with the complaint of increased redness and swelling in his legs for the past three days. Admitted for further evaluation and management of CHF, COPD exacerbation and probable pneumonia. 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 Active. -Echocardiogram showing EF 10-15% -appreciate nephrology consult. Will followup with recommendation -continue with IV diuresis per nephrology recommendations -monitor I/Os, daily weight -cardiology consulted to help optimize cardiac treatment. will followup with recommendations # Anasarca, suspect acute and present on admission. ongoing -likely due to heart failure noted above -continue with diuresis as noted above -abdominal ultra sound on 12/08 with only small ascites. # Acute on chronic COPD exacerbation, reported as present on admission. Currently seems resolved and stable -50+ pack-year smoking history. Ongoing tobacco use. -sputum culture, ordered -received 125mg IV Solu-Medrol in ED. -continue to hold Prednisone given no significant wheezing noted on exam and presenting pulmonary symptoms likely acute CHF -continue with Nebs # ? Acute community acquired pneumonia, present on admission. -doubt this diagnosis given normal WBC, negative procalcitonin, afebrile and given clinical picture -suspect CXR findings likely edema as opposed to infiltrate -received 2g ceftriaxone, 125mg IV Solu-Medrol, DuoNeb x1in the ED -continue to hold antibiotics and follow clinically # Elevated troponin, present on admission. normalized on repeat -patient remains asymptomatic for chest pain -likely secondary to demand ischemia, acute exacerbation of CHF -echo as noted above # Hyperkalemia, unknown chronicity, present on admission. Resolved. Now with hypokalemia -replete and followup # Hypertension (chronic), poa. Ongoing -home medications, held on admission for low BPs # Diabetes mellitus, type 2 (chronic), present on admission. Ongoing -held home metformin and glimepiride -ISS # Hyperlipidemia (chronic), poa. Ongoing -continue home statin Dispo: 2-3 days GI Prophylaxis: Not indicated VTE Prophylaxis: Sub-Q Heparin (Unfractionated) VTE Mechanical Devices: Venous Foot Pump Resuscitation Status: CPR: Attempt Resuscitation Ramses Oconnell Dec 12, 2016 17:06
--- NOTE | 2016-12-12 19:25 | NUR ---
Mentation/K+ Pt alert and oriented to self/place/year today with brief forgetful moment when Pt asked about going out to have a cigarette, Pt easily reoriented at this time and remained oriented for the rest of the shift. Pt's potassium f/u lab 3.6 after K+ rider on NOC shift, spoke with , 40 mEq PO K+ ordered/administrated.
[2016-12-13] VITALS (7 sets, daily range): BP systolic 91–120; BP diastolic 63–76; PULSE 74–99; RESP 16–20; O2SAT 92–96
[2016-12-13] MEDS: Furosemide 10 mg/mL 10 mL Inj IVPUSH SCH ×3 (01:13→17:10)
[2016-12-13] MEDS: Heparin 5,000 Unit/mL Inj SUBQ SCH ×3 (01:13→17:10)
[2016-12-13] MEDS: Albuterol-Ipratropium 3 mL Inhalation Solution NEB SCH ×4 (02:18→20:04)
[2016-12-13 06:38] LABS: Mean Corpuscular Hemoglobin 27.8 pg (27.0-35.0)
[2016-12-13] MEDS: Insulin LISPRO 300 Unit/3 mL Inj SUBQ SCH ×4 (07:51→22:00)
--- NOTE | 2016-12-13 10:48 | NUR ---
Palliative care note (late note for 12/12/16) D/A: Met with pt as well as Dr. Marsh. Present also was pt dtr Judith. Discussed pt current prognosis with his end stage heart failure. He now meets hospice criteria with his EF of 10-15%. Dtr is aware of pt early dementia. Family feels that he likely has been more notably less functional for the past 6 mo's or so. Pt and dtr are appreciative of the the consult and the team talking to them about the findings from the medical team. They are a bit saddened to hear that pt prognosis is now about 6 mos. Pt is informed that he should no longer be driving. Discuss possible implications of his driving, even a short distance. 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 He has enjoyed working on cars with his friends. Concern is that pt may not be able to recall that he is not supposed to drive. Dtr voices that family would like pt to move down closer to them, in the [place] area. Pt has a female friend who lives near [place]. Pt is agreeable to this as his son and dtr live blocks from each other as well as the children's mother, who would like to be able to assist and visit with pt. Dtr brings DPOA (she and her bro share) and copy is stickered and placed in chart. POSLT also completed for pt with his signature. His goals/dx are; advanced heart failure, not able to be improved with surgery or medicine. Pt wants to be closer to family and avoid going to hospital. He chooses [facility] and limited additional measures and does not wish for intubation. POSLST is stickered and placed in chart, with copy for EMR and dtr is given copies as well. Pt's children are ; Mayda at [phone] Lui at [phone] Family would like SNF placement. Discuss that it is not clear that pt will meet criteria for SNF but will discuss with [facility]. Pt may benefit from PT eval. Family also interested in [facility] or other similar placement options along with hospice, once able to transition from SNF. Pt agreeable. Case discussed with Nataly DOMÍNGUEZW and Sheron DOMÍNGUEZW. P: Palliative care to follow. Ramya Luke [facility], CCM
--- NOTE | 2016-12-13 11:03 | NUR ---
Palliative care note D/A: Case discussed with Dr. Marsh. Recommend that provider consider filing out form from [facility] Dept of Licensing indicating that pt should no longer drive. Dr. Marsh to fill out this form. P: Palliative care to follow. Ramya BOWMAN, CCM
--- NOTE | 2016-12-13 12:32 | PCM.PNNEPH ---
Subjective Date of Service Dec 13, 2016 Subjective No new complaints, breathing better. Persistent LE swelling noted. Exam Vital Signs Vital Sign - Last Date Time Temp Pulse Resp B/P Pulse Ox O2 Delivery O2 Flow Rate FiO2 12/13/16 09:33 89 16 94 Room Air 12/13/16 09:20 36.7 120/76 12/08/16 16:30 1.50 Intake and Output 12/12/16 12/12/16 12/13/16 Cumulative From/Thru 15:00 23:00 07:00 12/07/16 17:27 - 12/13/16 06:36 Intake Total 1006 ml 800 ml 65213 ml Output Total 300 ml 6770 ml Balance 706 ml 800 ml 3764 ml Intake Oral 1006 ml 800 ml 03317 ml IV Total 15 ml Output Urine Total 300 ml 6770 ml # Voids 2 3 14 # Bowel Movements 0 1 1 Exam GA: AAOx3, NAD. HEENT: atraumatic, no pallor, no icteric sclerae. Neck (+) JVD, without adenopathy or thyromegaly. Heart: Regular; soft systolic murmur. Lungs: Coarse crackles at bases. Prolonged expiratory phase. Abdomen: soft, NT, ND, no HSM. Ext: 3+ edema with sacral swelling. Lab and Diagnostics Result Diagram: 12/13/16 0610 12/13/16 0610 X-Rays, CTs and MRIs Date of Service: 12/07/16 1752 PROCEDURE: X-RAY CHEST ONE VIEW, PORTABLE ([id number]) IMPRESSION: Low lung volumes with diffuse consolidative and groundglass opacities which could represent multifocal pneumonia and/or aspiration. Please correlate clinically to exclude pulmonary edema. Recommend continued radiographic followup Dictated by: Nino Bolanos M.D. on 12/07/2016 at 18:48 Approved by: Nino Bolanos M.D. on 12/07/2016 at 18:51 Cardiac Echo Impressions Date of Service: 12/08/16 0800 Echocardiogram Report Interpretation Summary The left ventricle is moderate-severely dilated and left ventricular systolic function is severely reduced with the ejection fraction estimated to be 10- 15%. There is a significant dyssynchronous contraction pattern, consistent with a conduction abnormality with severe global hypokinesis that is worse at the apex and the entire posterior wall which appear to be essentially akinetic. Trabeculae near apex are visualized but a thrombus can not be excluded. Diastolic function could not be accurately assessed due to unobtainable data. The right ventricle is mildly dilated. Right ventricular systolic function is severely reduced. The right ventricular systolic pressure is estimated at 49 mmHg assuming a right atrial pressure of 15 mm Hg. The left atrium is moderately dilated and the right atrium is mildly dilated. There is moderate mitral annular calcification with probable moderate mitral regurgitation and minimal to mild mitral stenosis. There is moderate tricuspid regurgitation. The aortic valve is slightly calcified with mild to moderate aortic regurgitation but no aortic valve stenosis. There is mild to moderate pulmonic regurgitation. The ascending aorta and aortic arch are at the upper limits of normal in size. Reading Physician:04:38 PM Additional Diagnostics Date of Service: 12/08/16 1721 PROCEDURE: US ABDOMEN ([id number]) IMPRESSION: 1. Contracted gallbladder. No gallstones. There is gallbladder wall thickening, which may be secondary to inadequate distention. 2. A small amount of ascites. 3. Small left effusion. 4. Mild splenomegaly. 5. Small simple appearing exophytic right renal cyst. 6. Pancreas obscured by overlying bowel gas. Dictated by: Jairo Aviles M.D. on 12/08/2016 at 19:05 Approved by: Jairo Aviles M.D. on 12/08/2016 at 19:10 Plan Impression 1. LO due to CRS 2. 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 Anasarca 4. COPD Plan: d/c IV lasix and chlorthalidone. start torsemide and aldactone. will monitor volume status on the daily basis. Raffi Shepherd MD Dec 13, 2016 12:32
--- NOTE | 2016-12-13 14:56 | PCM.PNMED ---
Subjective Date of Service Dec 13, 2016 Subjective Denies any SOB, nausea, vomiting, abdominal pain. no other new issues/complaints Exam Vital Signs Vital Sign - Last Date Time Temp Pulse Resp B/P Pulse Ox O2 Delivery O2 Flow Rate FiO2 12/13/16 09:33 89 16 94 Room Air 12/13/16 09:20 36.7 120/76 12/08/16 16:30 1.50 Intake and Output 12/12/16 12/12/16 12/13/16 Cumulative From/Thru 15:00 23:00 07:00 12/07/16 17:27 - 12/13/16 06:36 Intake Total 1006 ml 800 ml 55739 ml Output Total 300 ml 6770 ml Balance 706 ml 800 ml 3764 ml Intake Oral 1006 ml 800 ml 58981 ml IV Total 15 ml Output Urine Total 300 ml 6770 ml # Voids 2 3 14 # Bowel Movements 0 1 1 Exam General: Alert, Cooperative, No Acute Distress Head: Normal Eyes: Scleral Anicteric Mouth: Mucous Membr Moist/Lucien Neck: Supple Chest & Lungs: Chest Wall Normal, mild bibasilar crackles Cardiovascular: Regular Rate/Rhythm Pulses: NL carotid, radial, femoral, DP, PT Abdomen: Non-tender, Distended, Normoactive bowel tones, Soft Extremities: Edema (3+ pitting edema up to the abdomen) Neurological: Grossly Neurologically Intact, Normal Speech Psych: Appropriate. IVs and Medications Medications Reviewed: Medications were reviewed in detail Lab and Diagnostics Result Diagram: 12/13/16 0610 12/13/16 0610 X-Rays, CTs and MRIs Date of Service: 12/07/16 1752 PROCEDURE: X-RAY CHEST ONE VIEW, PORTABLE ([id number]) IMPRESSION: Low lung volumes with diffuse consolidative and groundglass opacities which could represent multifocal pneumonia and/or aspiration. Please correlate clinically to exclude pulmonary edema. Recommend continued radiographic followup Dictated by: Nino Bolanos M.D. on 12/07/2016 at 18:48 Approved by: Nino Bolanos M.D. on 12/07/2016 at 18:51 Cardiac Echo Impressions Date of Service: 12/08/16 0800 Echocardiogram Report Interpretation Summary The left ventricle is moderate-severely dilated and left ventricular systolic function is severely reduced with the ejection fraction estimated to be 10- 15%. There is a significant dyssynchronous contraction pattern, consistent with a conduction abnormality with severe global hypokinesis that is worse at the apex and the entire posterior wall which appear to be essentially akinetic. Trabeculae near apex are visualized but a thrombus can not be excluded. Diastolic function could not be accurately assessed due to unobtainable data. The right ventricle is mildly dilated. Right ventricular systolic function is severely reduced. The right ventricular systolic pressure is estimated at 49 mmHg assuming a right atrial pressure of 15 mm Hg. The left atrium is moderately dilated and the right atrium is mildly dilated. There is moderate mitral annular calcification with probable moderate mitral regurgitation and minimal to mild mitral stenosis. There is moderate tricuspid regurgitation. The aortic valve is slightly calcified with mild to moderate aortic regurgitation but no aortic valve stenosis. There is mild to moderate pulmonic regurgitation. The ascending aorta and aortic arch are at the upper limits of normal in size. Reading Physician:04:38 PM Additional Diagnostics Date of Service: 12/08/16 1721 PROCEDURE: US ABDOMEN ([id number]) IMPRESSION: 1. Contracted gallbladder. No gallstones. There is gallbladder wall thickening, which may be secondary to inadequate distention. 2. A small amount of ascites. 3. Small left effusion. 4. Mild splenomegaly. 5. Small simple appearing exophytic right renal cyst. 6. Pancreas obscured by overlying bowel gas. Dictated by: Jairo Aviles M.D. on 12/08/2016 at 19:05 Approved by: Jairo Aviles M.D. on 12/08/2016 at 19:10 Assessment & Plan 76 y/o M with memory issues and a hx of CAD s/p CABG twenty yrs ago, DM type 2, HTN and COPD who presented to the ED with the complaint of increased redness and swelling in his legs for the past three days. 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 Active. -Echocardiogram showing EF 10-15% -appreciate nephrology consult. Will followup with recommendation -continue with diuresis per nephrology recommendations -monitor I/Os, daily weight -cardiology consulted to help optimize cardiac treatment. will followup with recommendations # Anasarca, suspect acute and present on admission. ongoing -likely due to heart failure noted above -continue with diuresis as noted above -abdominal ultra sound on 12/08 with only small ascites. # Acute on chronic COPD exacerbation, reported as present on admission. Currently seems resolved and stable -50+ pack-year smoking history. Ongoing tobacco use. -sputum culture, ordered -received 125mg IV Solu-Medrol in ED. -continue to hold Prednisone given no significant wheezing noted on exam and presenting pulmonary symptoms likely acute CHF -continue with Nebs # ? Acute community acquired pneumonia, present on admission. -doubt this diagnosis given normal WBC, negative procalcitonin, afebrile and given clinical picture -suspect CXR findings likely edema as opposed to infiltrate -received 2g ceftriaxone, 125mg IV Solu-Medrol, DuoNeb x1in the ED -continue to hold antibiotics and follow clinically # Elevated troponin, present on admission. normalized on repeat -patient remains asymptomatic for chest pain -likely secondary to demand ischemia, acute exacerbation of CHF -echo as noted above # Hyperkalemia, unknown chronicity, present on admission. Resolved. Now with hypokalemia -replete and followup # Hypertension (chronic), poa. Ongoing -home medications, held on admission for low BPs # Diabetes mellitus, type 2 (chronic), present on admission. Ongoing -held home metformin and glimepiride -ISS # Hyperlipidemia (chronic), poa. Ongoing -continue home statin # Goals of care - appreciate palliative care consult. will followup wit recommendations. Dispo: 1-2 days pending further cardiology evaluation as well as PT recommendations. Patient's family hoping patient will be discharged to SNF or assisted living closer to [facility]. Social work involved. GI Prophylaxis: Not indicated VTE Prophylaxis: Sub-Q Heparin (Unfractionated) VTE Mechanical Devices: Venous Foot Pump Resuscitation Status: CPR: Attempt Resuscitation Ramses Oconnell Dec 13, 2016 14:56
--- NOTE | 2016-12-13 15:08 | PCM.PALLBR ---
Palliative Care Recommendation Summary of palliative recommendations: 1. Pt needs to live in an assisted living facility or adult family [place] [facility] located closer to his family, especially in order to have a skilled person administer his medications so that he receives and takes the appropriate prescribed medications, (which he tends to forget) and has agreed to this during our Pall Care conversation with his family 12/12. 2. Pt and family were informed of his end-stage heart failure and likely prognosis of 6 months or less. Family understands that he is eligible for hospice care if they want to sign up for these services. 3. Pt informed 12/12 in presence of his daughter that I don't think he is safe to drive any more due to his heart condition. On 12/13, Dr. Marsh completed form for DMV and mailed it in. Form states pt is not safe to drive on public roads due to medical reasons. 4. Symptom management (Pain/other): managed by Attending. 5. Dr. Oconnell informed of family conference held 12/12 and he thinks pt will need a few more days inpatient prior to discharge. 6. Family/emotional support: excellent support from his son and daughter who serve as co-HCPOAs. 7. Spiritual support: pt is a lapsed Sabianism and doesn't have much interest in islam. Dtr hopes he will listen to family/friends and return to scientologist for support. Pt seems unlikely to do so. Palliative Care will sign off as goals are clear and pt is awaiting disposition. Problems: End of Life Preferences DPOA/Advanced Directives/POLST: 1. Code: FULL CODE changed 12/12 to DNR/DNI 2. AD paperwork done, adult children aware of pt's wishes 3. DPOAs: paperwork done, son and daughter share responsibility as DPOA to help Dad if he cannot make his own decisions 4. POLST: pt signed POLST 12/12 stating DNR/DNI/limited interventions with hope to avoid re-hospitalization in the future. Goals of Care 1. Spend time with family and friends in safe environment. Resuscitation Status Resuscitation Status: CPR: Attempt Resuscitation POLST Updates/Changes Previous POLST?: No POLST Last Review Date: Dec 12, 2016 Antibiotics: Determine Use or Limitations POLST Review Outcome: New Form Completed Total time 15 minutes; >50% face to face with patient and/or family, providing counselling regarding plans and recommendations, and in care coordination with his/her medical teams. Palliative Brief Note Date of Service Dec 13, 2016 . Patient Identification: Antonio Juan is a 76 year old male with past medical history significant for CAD s/p 5 vessel CABG in 1998, CHF with reduced EF, DM type 2, HTN, COPD, and tobacco use who presented to the ED with complaint of increasing swelling and redness in lower extremities. He denies any additional symptoms. Patient's son and daughter note that on admission he was more ill- appearing and struggled cognitively compared to his baseline. There is concern for medication compliance. Patient lives at home alone and receives pill packs prepared at [facility]. He was referred to cardiology but did not present to appointment. He is admitted for CHF exacerbation. Hospital Course: Echocardiogram was completed and revealed and EF of 10-15%. Patient has been aggressively diuresed and placed back on appropriate CHF regimen and shown significant improvement. He has threatened to leave AMA and was found smoking in the bathroom but has agreed to stay at this time. Yesterday 12/12, the Palliative Care Team discussed his heart failure prognosis and what changes to expect in his function over the next few months. Pt and his daughter Mayda were present for this conversation. For details, see 12/12 note. Today is hospital day 6. Subjective: Patient is alert and oriented. Exam: General: Alert/Oriented x3, Person, Place, Time, Situation, No acute distress HEENT: Atraumatic, PERRLA, EOMI, Scleral Anicteric Heart: Regular Rate/Rhythm Lungs: Clear to Auscultation Abdomen: Benign Neuro: Exam Intact, Arousable, Follows Commands, Spontaneous Eye Opening, Speech Extremities: Warm, Edema (2+) in lower extremities and also in abdomen. Araceli Marsh MD Dec 13, 2016 15:08
--- NOTE | 2016-12-13 15:43 | NUR ---
Social Work - Readiness for Discharge Data: Pt is on day 6 of hospitalization for pneumonia, CHF, exacerbated COPD. EMR reviewed. Pt discussed in morning rounds and will likely discharge tomorrow, is up and independent in room. PT has assessed and is recommending home. SW spoke to son Lui [phone] via phone to update him and informed him that a SNF is not recommended. However the pt does qualify for hospice services and SW can assist with coordinating this if the family is interested. SW provided phone number for [facility] for further guidance on longer term care options. Pt likely to discharge home via family. SW agreed to update family following morning rounds if the pt is likely to discharge. No further needs assessed. SW will continue to follow. Assessment: Pt who is independent at baseline. Plan: Pt to discharge home via POV. Social work will continue to follow for needs. NAE Mccarthy
--- NOTE | 2016-12-13 18:08 | NUR ---
Daily update Patient alert and oriented to self and place today. Patient up walking in hallway with PT in hallway. Patient significant other in room with patient most of day. Patient cooperative with care.
[2016-12-14] VITALS (7 sets, daily range): BP systolic 88–108; BP diastolic 57–70; PULSE 74–98; RESP 16–18; O2SAT 94–100
[2016-12-14] MEDS: Heparin 5,000 Unit/mL Inj SUBQ SCH ×3 (00:25→17:16)
[2016-12-14] MEDS: Furosemide 10 mg/mL 10 mL Inj IVPUSH SCH ×3 (00:25→17:19)
[2016-12-14 02:00] LABS: Mean Corpuscular Hemoglobin 28.4 pg (27.0-35.0); Mean Corpuscular Volume 84.5 fL (81-100)
--- NOTE | 2016-12-14 02:21 | CONS ---
[address] [address] CONSULTATION REPORT PATIENT: BELKYS ERIC : 1940 MR#: [id number] ADMIT: 12/07/2016 JOB ID: [id number] DATE OF SERVICE: 12/13/2016 CHIEF COMPLAINT: Abdominal distention and lower extremity edema. HISTORY OF PRESENT ILLNESS: The patient is a delightful 76-year-old man with diabetes, hypertension, hyperlipidemia, coronary artery disease status post five-vessel CABG in 1998, severe mitral regurgitation status post mitral valve repair. He was admitted complaining of worsening bilateral lower extremity edema and Cardiology is consulted to assist with management. So far, patient has been closely monitored by Dr. Oconnell. I appreciate his expertise. Since admission December 07, his weight is down 10 kg and right now he says he is feeling better. He is still not able to lie flat and has to sleep on multiple pillows due to orthopnea. PAST MEDICAL HISTORY: 1. Coronary artery disease status post CABG in 1998. He has an anginal equivalent with severe dyspnea on exertion. His pre-bypass anatomy demonstrated 95% mid LAD lesion, occluded circumflex and occluded mid right coronary artery fed via [id number] and [id number] collaterals. He underwent coronary artery bypass graft surgery September 27, 1998. His surgical anatomy TEMPLE to diag with skip graft to LAD, vein graft to OM1 with skip graft to OM3, and vein graft to posterolateral branch. 2. Mitral regurgitation. He is status post Mark mitral valve annuloplasty with a 28 mm ring. 3. Cardiomyopathy. Pre-CABG his EF was about 20%. After bypass surgery, EF improved to about 40%. Now ejection fraction, unfortunately is 10% to 15%. 4. Diabetes, controlled. Most recent hemoglobin A1c 7.7%. 5. Hyperlipidemia, unfortunately, I do not have any recent lipids available for review. 6. COPD. SOCIAL HISTORY: He is from [place]. He moved to [facility] in 2003. He is accompanied today by his long-term girlfriend, Rubia. He has caring and supportive children in the area. FAMILY HISTORY: Father with heart attack in his 60s, at age 73. ALLERGIES: No known drug allergies. HOME MEDICATIONS: 1. Aspirin 81 mg daily. 2. Lipitor 40 mg daily. 3. Glimepiride 4 mg twice a day. 4. Metformin 1 g twice a day. 5. Hydrochlorothiazide 25 mg daily. 6. Ramipril 10 mg daily. 7. In the past, he was on Toprol-XL based on review of remote notes from [facility]. REVIEW OF SYSTEMS: Significant for edema, memory problems, orthopnea. No PND, no chest pain. Otherwise, 10 point review of systems is negative. CURRENT MEDICATIONS IN THE HOSPITAL: 1. Aspirin 325 mg daily. 2. Lipitor 40 mg daily. 3. He is on both torsemide and IV Lasix. Torsemide is ordered at 40 mg twice a day, Lasix 80 mg IV every 8 hours. 4. Losartan 25 mg daily. 5. Spironolactone 50 mg daily. 6. Subcu heparin for DVT prophylaxis. PHYSICAL EXAMINATION: A thin, elderly man, in no apparent distress. Eyes: No scleral icterus. Temperature 36.7. Blood pressure 91/63, up to 120/76. Pulse 74, up to 99 beats per minute. Satting 92% to 96% on room air. Neck: Supple. No lymphadenopathy. No carotid bruits. Heart sounds normal S1, S2. No murmurs. Lungs: Clear. Anterior abdomen is soft, positive bowel sounds. There is evidence of some ascites on exam. Extremities show bilateral moderate edema. Skin shows chronic mild erythema bilaterally on the shins. Neuro exam is nonfocal. The patient appears to have some memory problems, but can participate meaningfully in the conversation. LABORATORIES: Were reviewed. Creatinine is 1.2, potassium 4.2 as of December 10. He has not had any recent basic metabolic panel. TSH was normal as of December 09. CBC is normal as of December 13 with exception of mildly reduced platelet count at 116. EKG: Sinus rhythm with inferior Qs and poor R-wave progression in precordial leads. Echocardiogram December 08 showed EF of 10% to 15%, dyssynchrony, severe global hypokinesis worse in the apex and entire posterior wall, which appears to be akinetic, mildly dilated right ventricle with severely reduced RV function. Pulmonary systolic pressure 49 mmHg, assuming right atrial pressure 15 mmHg. There is moderate mitral annular calcification and moderate mitral regurgitation with minimal to mild mitral stenosis. There is moderate left atrial enlargement, mild right atrial enlargement. Moderate tricuspid regurgitation. Mild to moderate aortic regurgitation. ASSESSMENT AND PLAN: This is a 76-year-old man admitted with acute decompensated heart failure. He is down 10 kg since admission. He says his dry weight is 190 pounds, which is basically where he is right now. Coronary artery disease. Continue with aspirin and Lipitor for secondary prevention. I do not have any recent lipids available for review so I took liberty of ordering those. As far as ischemic evaluation, I will have to understand patient's neurological condition a little bit better. If his cognitive impairment is relatively mild we can potentially consider cardiac catheterization. However, if he appears to have significant cognitive impairment or porsche dementia, he may not be a good candidate for cardiac catheterization because his prognosis is informed by his cognitive status. Cardiomyopathy. He has not had a basic metabolic panel in a few days. I recommend sticking to just a single diuretic right now. He is still volume up, so I took the liberty of discontinuing torsemide and just continuing furosemide 80 mg IV every 8 hours and repeating his basic metabolic panel in the morning. I am not sure why he is on losartan. He was on ramipril as an outpatient with no documentation of adverse reactions. I recommend for him to go back to MARTINE inhibitor and I took the liberty of ordering lisinopril 10 mg daily. I agree with spironolactone 50 mg daily. I am noticing he is not on beta-karmen right now, and I think it is reasonable to go ahead and start that. I took the liberty of ordering Toprol-XL 25 mg daily. Diabetes closely monitored by Dr. Oconnell. I appreciate that he has not given him oral hypoglycemics right now, in particular metformin, which gives me the option to do a cardiac catheterization. Primary prevention of sudden . The patient declined internal cardioverter-defibrillator implant at this time. Smoking. Encouraged patient to quit smoking, and he has not smoked, he is wearing a nicotine patch and said it is helping. The big decision making point is whether or not he will undergo cardiac catheterization with grafts during this hospitalization, and that decision is contingent upon family meeting with his children and his girlfriend, Rubia, assessment of his cognitive status and his wishes, as well as renal function after fairly aggressive diuresis. Thank you very much for the opportunity to evaluate him. Once I can ascertain his kidney function is good, I will probably start him on digoxin for better inotropy. MTDD
[2016-12-14] MEDS: Albuterol-Ipratropium 3 mL Inhalation Solution NEB SCH ×3 (02:30→14:30)
[2016-12-14] MEDS: Insulin LISPRO 300 Unit/3 mL Inj SUBQ SCH ×4 (08:20→22:00)
[2016-12-14] MEDS: MeTOProlol XL 25 mg ER24 Tablet PO SCH (08:21)
--- NOTE | 2016-12-14 10:30 | NUR ---
JUANA signed Verbal consent to sign by pt's daughter via phone. NAE Goel
--- NOTE | 2016-12-14 11:16 | NUR ---
Called [facility] [phone] and spoke with admissions, she has beds and will review referral. Faxed referral to [phone]. Updated GUIDANCE AND CONTROL SYSTEM ENGINEER Addendum: 12/14/16 at 1206 by SIOMARA RIVERA CM [facility] per GUIDANCE AND CONTROL SYSTEM ENGINEER
--- NOTE | 2016-12-14 13:31 | PCM.PNMED ---
Subjective Date of Service Dec 14, 2016 Exam Vital Signs Vital Sign - Last Date Time Temp Pulse Resp B/P Pulse Ox O2 Delivery O2 Flow Rate FiO2 12/14/16 07:52 74 16 96 Room Air 12/14/16 05:19 36.8 92/60 12/08/16 16:30 1.50 Intake and Output 12/13/16 12/13/16 12/14/16 Cumulative From/Thru 15:00 23:00 07:00 12/07/16 17:27 - 12/14/16 06:05 Intake Total 1561 ml 1000 ml 89661 ml Output Total 850 ml 7620 ml Balance 1561 ml 150 ml 5475 ml Intake Oral 1556 ml 1000 ml 85199 ml IV Total 5 ml 20 ml Output Urine Total 850 ml 7620 ml # Voids 3 17 # Bowel Movements 0 1 Lab and Diagnostics Result Diagram: 12/14/16 0150 12/14/16 0150 X-Rays, CTs and MRIs Date of Service: 12/07/16 1752 PROCEDURE: X-RAY CHEST ONE VIEW, PORTABLE ([id number]) IMPRESSION: Low lung volumes with diffuse consolidative and groundglass opacities which could represent multifocal pneumonia and/or aspiration. Please correlate clinically to exclude pulmonary edema. Recommend continued radiographic followup Dictated by: Nino Bolanos M.D. on 12/07/2016 at 18:48 Approved by: Nino Bolanos M.D. on 12/07/2016 at 18:51 Cardiac Echo Impressions Date of Service: 12/08/16 0800 Echocardiogram Report Interpretation Summary The left ventricle is moderate-severely dilated and left ventricular systolic function is severely reduced with the ejection fraction estimated to be 10- 15%. There is a significant dyssynchronous contraction pattern, consistent with a conduction abnormality with severe global hypokinesis that is worse at the apex and the entire posterior wall which appear to be essentially akinetic. Trabeculae near apex are visualized but a thrombus can not be excluded. Diastolic function could not be accurately assessed due to unobtainable data. The right ventricle is mildly dilated. Right ventricular systolic function is severely reduced. The right ventricular systolic pressure is estimated at 49 mmHg assuming a right atrial pressure of 15 mm Hg. The left atrium is moderately dilated and the right atrium is mildly dilated. There is moderate mitral annular calcification with probable moderate mitral regurgitation and minimal to mild mitral stenosis. There is moderate tricuspid regurgitation. The aortic valve is slightly calcified with mild to moderate aortic regurgitation but no aortic valve stenosis. There is mild to moderate pulmonic regurgitation. The ascending aorta and aortic arch are at the upper limits of normal in size. Reading Physician:04:38 PM Additional Diagnostics Date of Service: 12/08/16 2512 PROCEDURE: US ABDOMEN ([id number]) IMPRESSION: 1. Contracted gallbladder. No gallstones. There is gallbladder wall thickening, which may be secondary to inadequate distention. 2. A small amount of ascites. 3. Small left effusion. 4. Mild splenomegaly. 5. Small simple appearing exophytic right renal cyst. 6. Pancreas obscured by overlying bowel gas. Dictated by: Jairo Aviles M.D. on 12/08/2016 at 19:05 Approved by: Jairo Aviles M.D. on 12/08/2016 at 19:10 Assessment & Plan GI Prophylaxis: Not indicated VTE Prophylaxis: Sub-Q Heparin (Unfractionated) VTE Mechanical Devices: Venous Foot Pump Resuscitation Status: CPR: Attempt Resuscitation WINSOME PÉREZ DO Dec 14, 2016 13:31 -appreciate nephrology consult. Will followup with recommendation -continue with diuresis per nephrology recommendations -monitor I/Os, daily weight -cardiology consulted to help optimize cardiac treatment. will followup with recommendations # Anasarca, suspect acute and present on admission. ongoing -likely due to heart failure noted above -continue with diuresis as noted above -abdominal ultra sound on 12/08 with only small ascites. # Acute on chronic COPD exacerbation, reported as present on admission. Currently seems resolved and stable -50+ pack-year smoking history. Ongoing tobacco use. -sputum culture, ordered -received 125mg IV Solu-Medrol in ED. -continue to hold Prednisone given no significant wheezing noted on exam and presenting pulmonary symptoms likely acute CHF -continue with Nebs # ? Acute community acquired pneumonia, present on admission. -doubt this diagnosis given normal WBC, negative procalcitonin, afebrile and given clinical picture -suspect CXR findings likely edema as opposed to infiltrate -received 2g ceftriaxone, 125mg IV Solu-Medrol, DuoNeb x1in the ED -continue to hold antibiotics and follow clinically # Elevated troponin, present on admission. normalized on repeat -patient remains asymptomatic for chest pain -likely secondary to demand ischemia, acute exacerbation of CHF -echo as noted above # Hyperkalemia, unknown chronicity, present on admission. Resolved. Now with hypokalemia -replete and followup # Hypertension (chronic), poa. Ongoing -home medications, held on admission for low BPs # Diabetes mellitus, type 2 (chronic), present on admission. Ongoing -held home metformin and glimepiride -ISS # Hyperlipidemia (chronic), poa. Ongoing -continue home statin # Goals of care - appreciate palliative care consult. will followup wit recommendations. Dispo: 1-2 days pending further cardiology evaluation as well as PT recommendations. Patient's family hoping patient will be discharged to SNF or assisted living closer to [facility]. Social work involved. GI Prophylaxis: Not indicated VTE Prophylaxis: Sub-Q Heparin (Unfractionated) VTE Mechanical Devices: Venous Foot Pump Resuscitation Status: CPR: Attempt Resuscitation WINSOME PÉREZ DO Dec 14, 2016 13:31
--- NOTE | 2016-12-14 13:53 | PCM.PNMED ---
Subjective Date of Service Dec 14, 2016 Subjective Overnight: No overnight events reported. Today. Patient awake and alert sitting in bedside chair. He reports he feels fine. Denies any complaints of chest pain, shortness of breath, abdominal pain. Exam Vital Signs Vital Sign - Last Date Time Temp Pulse Resp B/P Pulse Ox O2 Delivery O2 Flow Rate FiO2 12/14/16 07:52 74 16 96 Room Air 12/14/16 05:19 36.8 92/60 12/08/16 16:30 1.50 Intake and Output 12/13/16 12/13/16 12/14/16 Cumulative From/Thru 15:00 23:00 07:00 12/07/16 17:27 - 12/14/16 06:05 Intake Total 1561 ml 1000 ml 40644 ml Output Total 850 ml 7620 ml Balance 1561 ml 150 ml 5475 ml Intake Oral 1556 ml 1000 ml 09864 ml IV Total 5 ml 20 ml Output Urine Total 850 ml 7620 ml # Voids 3 17 # Bowel Movements 0 1 Exam General: No acute distress, well-developed, appropriately interactive, sitting in bedside chair with friend in room HEENT: Normocephalic, atraumatic. External ears without defect. Pupils equal, round, and reactive to light and accommodation. Neck: No jugular venous distension. Cardiovascular: Regular rate and rhythm with no murmurs appreciated Pulmonary: Clear to auscultation bilaterally with no crackles, wheezes, or rhonchi. Normal respiratory effort with no use of accessory muscles. Abdomen: Soft, nontender to palpation 4 quadrants. No rigidity. No guarding. Extremities: Bilateral lower extremity edema to pretibial area Skin: Normal temperature, turgor, and texture Neurological: Cranial nerves grossly intact. Psychiatric: Normal mood and affect. Alert and oriented to person, place, and time. IVs and Medications Medications Reviewed: Medications were reviewed in detail Lab and Diagnostics Result Diagram: 12/14/16 01512/14/16 0150 Microbiology Urine strep pneumo antigen negative Nasal MRSA swab negative Blood aerobic and anaerobic no growth 5 days Nasopharyngeal PCR negative X-Rays, CTs and MRIs . X-RAY CHEST ONE VIEW, PORTABLE IMPRESSION: Low lung volumes with diffuse consolidative and groundglass opacities which could represent multifocal pneumonia and/or aspiration. Please correlate clinically to exclude pulmonary edema. Recommend continued radiographic followup Dictated by: Nino Bolanos M.D. on 12/07/2016 at 18:48 US ABDOMEN IMPRESSION: 1. Contracted gallbladder. No gallstones. There is gallbladder wall thickening, which may be secondary to inadequate distention. 2. A small amount of ascites. 3. Small left effusion. 4. Mild splenomegaly 5. Small simple appearing exophytic right renal cyst. 6. Pancreas obscured by overlying bowel gas. Dictated by: Jairo Aviles M.D. on 12/08/2016 at 19:05 Cardiac Echo Impressions . Echocardiogram Report Interpretation Summary: The left ventricle is moderate-severely dilated and left ventricular systolic function is severely reduced with the ejection fraction estimated to be 10-15%. There is a significant dyssynchronous contraction pattern, consistent with a conduction abnormality with severe global hypokinesis that is worse at the apex and the entire posterior wall which appear to be essentially akinetic. Trabeculae near apex are visualized but a thrombus can not be excluded. Diastolic function could not be accurately assessed due to unobtainable data. The right ventricle is mildly dilated. Right ventricular systolic function is severely reduced. The right ventricular systolic pressure is estimated at 49 mmHg assuming a right atrial pressure of 15 mm Hg. The left atrium is moderately dilated and the right atrium is mildly dilated. There is moderate mitral annular calcification with probable moderate mitral regurgitation and minimal to mild mitral stenosis. There is moderate tricuspid regurgitation. The aortic valve is slightly calcified with mild to moderate aortic regurgitation but no aortic valve stenosis. There is mild to moderate pulmonic regurgitation. The ascending aorta and aortic arch are at the upper limits of normal in size. Additional Diagnostics Date of Service: 12/08/16 1721 PROCEDURE: US ABDOMEN ([id number]) IMPRESSION: 1. Contracted gallbladder. No gallstones. There is gallbladder wall thickening, which may be secondary to inadequate distention. 2. A small amount of ascites. 3. Small left effusion. 4. Mild splenomegaly. 5. Small simple appearing exophytic right renal cyst. 6. Pancreas obscured by overlying bowel gas. Dictated by: Jairo Aviles M.D. on 12/08/2016 at 19:05 Approved by: Jairo Aviles M.D. on 12/08/2016 at 19:10 Assessment & Plan 76 y/o M with memory issues and a hx of CAD s/p CABG twenty yrs ago, DM type 2, HTN and COPD who presented to the ED with the complaint of increased redness and swelling in his legs for the past three days. Hospital day 8. 1. 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 Active. -Echocardiogram showing EF 10-15% -Nephrology following patient, recommendations appreciated -Per nephrology: - Stop IV Lasix - Stop chlorthalidone - Start torsemide - Start Aldactone -Cardiology following patient, recommendations appreciated -Per cardiology: - Stop torsemide - Continue IV Lasix 80 mg IV every 8 - Start metoprolol 25 mg by mouth daily -Continue to monitor volume status -BUN trending up over 2 days, creatinine remains within normal limits -Patient has been hypotensive with current medication regimen, recommend further evaluation per cardiology and nephrology 2. Anasarca, suspect acute and present on admission. ongoing -likely due to heart failure noted above -continue with diuresis as noted above -abdominal ultra sound on 12/08 with only small ascites. 3. Acute on chronic COPD exacerbation, reported as present on admission. Currently seems resolved and stable -50+ pack-year smoking history. Ongoing tobacco use. -sputum culture pending -received 125mg IV Solu-Medrol in ED. -continue to hold Prednisone given no significant wheezing noted on exam and presenting pulmonary symptoms likely acute CHF -continue with Nebs 4 Acute community acquired pneumonia, present on admission. Unlikely -doubt this diagnosis given normal WBC, negative procalcitonin, afebrile and given clinical picture -suspect CXR findings likely edema as opposed to infiltrate -received 2g ceftriaxone, 125mg IV Solu-Medrol, DuoNeb x1in the ED -continue to hold antibiotics and follow clinically 5. Coronary artery disease. Chronic. Present on admission. Ongoing - Cardiology following, recommendations are appreciated - Lipid panel shows elevated LDL - Continue aspirin and Lipitor 6. Elevated troponin, present on admission. normalized on repeat -Patient remains asymptomatic for chest pain -Likely secondary to demand ischemia, acute exacerbation of CHF -Echo as noted above 7. Hyperkalemia, unknown chronicity, present on admission. Resolved. Now with hypokalemia - Patient trended down to hypokalemia - Remains within normal limits 3 days - Continue to monitor 8. Hypertension. Present on admission. Ongoing - Cardiology following as in #1 - Home medications ramipril, losartan started while inpatient - Per cardiology lisinopril 10 mg daily - Continue spironolactone 50 mg daily 9. Diabetes mellitus, type 2 (chronic), present on admission. Ongoing - Held home metformin and glimepiride - Correctional scale insulin 10. Hyperlipidemia (chronic), present on admission Ongoing -continue home statin 11. Tobacco dependence. Present on admission. Chronic - Patient counseled on tobacco cessation - Nicotine patch daily 12. Goals of care - Palliative care consult, recommendations appreciated - Per palliative care: - Patient needs to live in assisted living or [facility] closer to family. Specifically for medication administration - Prognosis 6 months or less, eligible for hospice care - Driving privileges revoked Dispo: 1-2 days pending further cardiology evaluation and medication finalization as well as PT recommendations. Patient's family hoping patient will be discharged to SNF or assisted living closer to [facility]. Social work involved. Pain Evaluation: Adequate Pain Control GI Prophylaxis: Not indicated VTE Prophylaxis: Sub-Q Heparin (Unfractionated) VTE Mechanical Devices: Venous Foot Pump Resuscitation Status: CPR: Attempt Resuscitation Attending Statement The patient was seen and examined together with Dr. Hernandez on 12/14/2016 and I agree with the history, exam and plan as outlined in the note above. . WINSOME HERNANDEZ DO Dec 14, 2016 13:28 Schuyler Frazier MD Dec 15, 2016 06:19
--- NOTE | 2016-12-14 16:20 | NUR ---
Social Work: Continued d/c planning Data: ASSISTANT REFINERY OPERATOR spoke with pt's daughter regarding d/c plan. [facility] and [facility] are reviewing to see if pt meets for nursing needs. Pt's daughter expressed interest in assisted living respite and states she would like to look into [facility]. ASSISTANT REFINERY OPERATOR called [facility], spoke with Miguel who states that they have a respite bed available for $225 per night with a one time $350 fee. ANABELLE Mishra will be in on 12/15 to assess pt. ASSISTANT REFINERY OPERATOR encouraged pt's daughter to consider other options as well such as pt going home with either son or daughter with in home caregiving and to talk with her brother about it. ASSISTANT REFINERY OPERATOR will continue to follow. Assessment: Pt who is independent at baseline. Plan: [facility] and [facility] referred, [facility] to assess pt at 11am. ASSISTANT REFINERY OPERATOR will continue to follow. NAE Goel
--- NOTE | 2016-12-14 17:33 | NUR ---
Telemetry / furosemide Patient replaced on telemetry per MD order. Vitals stable during the day and patient continued to deny CP, pressure, SOB, etc. wildlife technician reports that patient has multifocal PVCs as well as a 5 beat run of V tach around 1725. Maintenance Specialist currently at bedside to assess patient and talk with family members. Primary MD aware of patient's tele ectopy. 80mg of IV Lasix, scheduled TID was held this morning as patient's systolic BP was in the 93. Primary MD (Dr Hernandez / purple team) is aware and concurs that Lasix should be held and changes deferred to cardiology. Upon rounding, Dr Ignacio has made changes to Lasix dosing frequency. Bed is low and locked, call light in reach, patient is comfortable and denies discomfort. Care and frequent rounding ongoing.
--- NOTE | 2016-12-14 21:33 | PROG NOTE ---
[address] [address] PROGRESS NOTE PATIENT: BELKYS ERIC : 1940 MR#: [id number] ADMIT: 12/07/2016 JOB ID: [id number] DATE: 12/14/2016 SUBJECTIVE: This morning, we had a family meeting with the patient's son, his [id number] and two of his friends. His girlfriend, Rubia, was not available. After detailed consultation about risks, benefits and alternatives of aggressive medical management for cardiomyopathy, the patient decided to proceed with cardiac catheterization and possible ICD implant. The patient is committed to quitting smoking. Unfortunately, his blood pressure was borderline this morning (92/60), so Lasix was not administered. He is just in this morning as scheduled and he is just getting the dose now. OBJECTIVE: Vital signs: Temperature 36.4, blood pressure 92/60 up to 108/70, pulse 74 up to 98 beats per minute. He is satting 95% to 100% on room air. Thin, elderly man in no apparent distress. Eyes: No scleral icterus. Neck is supple. No carotid bruits. There is jugular venous distention. The neck veins are at 15 cm of blood. Heart: Normal S1, S2. No murmurs. Lungs: Clear anteriorly but has diminished breath sounds, left side worse than right. Abdomen is soft, positive bowel sounds. No hepatosplenomegaly. Extremities show moderate bilateral edema to the knees. It is pitting. He has mild bilateral anterior toth erythema. Vascular exam shows normal right common femoral artery pulsation with no bruit either on the right or on the left side. LABORATORIES: Reviewed. His labs on December 14 showed normal CBC with exception of mildly reduced platelet count. He has some evidence of contraction alkalosis. Bicarb is 33, potassium 3.8, glucose 198, total cholesterol 159, triglycerides are 7.2, HDL was 48, LDL was 110. TSH was most recently checked on December 09, troponin T was most recently 0.01. Telemetry was actually not on, and I asked to have it put back on. CURRENT MEDICATIONS: 1. Aspirin 325 mg daily. 2. Lipitor 40 mg daily. 3. Spironolactone 50 mg daily. 4. Toprol-XL 25 mg daily. 5. Lisinopril 10 mg daily. 6. Lasix 80 mg IV three times a day. 7. Lispro sliding scale insulin. It appears that he has been averaging about 8 units of correctional insulin every day. I reviewed his old telemetry strips that are filed in the chart and had had multiple runs of nonsustained VT. The longest was 11 beats. He is not aware of palpitations. I also reviewed his echocardiogram which was severe global hypokinesis with particularly akinetic basal inferolateral mid anterolateral segments and basal and mid inferior septum that is also quite bright consistent with completed infarct. I reviewed his radiographs on admission which showed pulmonary edema, sternotomy wires but no evidence of ring markers. ASSESSMENT AND PLAN: A 76-year-old man with history of five-vessel coronary artery bypass graft in 1998. His ejection fraction improved afterwards but then got worse again. He has narrow QRS complex. His management is complicated by some memory problems and his family is asking what to do. We had a 1 hour long family meeting discussing risks, benefits and alternatives of cardiac catheterization and ICD implants. He is not a [employer] candidate because his QRS complex is narrow. After a detailed conversation and consultation with family, the patient elected to proceed. He is not quite ready to proceed with invasive therapy, so we will continue diuresis. Hypotension. I will dial back on spironolactone from 50 daily to 12.5 daily, and I will start him on digoxin. Loading is not recommended for heart failure patients. Will continue Toprol-XL and lisinopril. Have a low threshold to dial back on lisinopril so he can get his diuretics. If he does not diurese adequately, he would benefit from transfer to the CCU so he can have milrinone facilitated diuresis, but certainly we want to be careful with inotropic agents because they can increase his ectopy burden. In terms of ICD implantation in precontemplation, he is not quite ready to come in just yet until he talks to the family some more about it. In terms of smoking, the patient is quitting smoking. He is wearing a nicotine patch and this seems to be working. He does not have posttraumatic stress disorder so he could be a candidate for Chantix in the future. Thank you very much for the opportunity to evaluate him.
[2016-12-15] VITALS (10 sets, daily range): BP systolic 89–118; BP diastolic 49–65; PULSE 77–96; RESP 16–18; O2SAT 95–97
[2016-12-15] MEDS: Heparin 5,000 Unit/mL Inj SUBQ SCH ×3 (00:58→16:58)
[2016-12-15 07:07] LABS: BASOPHILS % (AUTO) 0.1 % (0-3); EOSINOPHILS % (AUTO) 4.1 % (0-5); MONOCYTES % (AUTO) 10.4 % (4-12); Mean Corpuscular Hemoglobin 28.4 pg (27.0-35.0); Mean Corpuscular Volume 84.9 fL (81-100); NEUTROPHILS % (AUTO) 73.3 % (40-74); Platelet Count 126 bil/L (150-400)
[2016-12-15] MEDS: Furosemide 10 mg/mL 10 mL Inj IVPUSH SCH ×2 (08:30→21:55)
[2016-12-15] MEDS: Insulin LISPRO 300 Unit/3 mL Inj SUBQ SCH ×4 (08:37→22:00)
[2016-12-15] MEDS: MeTOProlol XL 25 mg ER24 Tablet PO SCH (08:40)
--- NOTE | 2016-12-15 11:36 | PCM.PNNEPH ---
Subjective Date of Service Dec 15, 2016 Subjective Hypotension noted, diuretics adjusted by fur blowing machine attendant. weight down from 93 kg to 78 kg. Feeling better overall. serum cr normalized. Exam Vital Signs Vital Sign - Last Date Time Temp Pulse Resp B/P Pulse Ox O2 Delivery O2 Flow Rate FiO2 12/15/16 08:58 82 16 97 Room Air 12/15/16 08:34 36.3 89/56 Intake and Output 12/14/16 12/14/16 12/15/16 Cumulative From/Thru 15:00 23:00 07:00 12/07/16 17:27 - 12/15/16 06:48 Intake Total 1120 ml 1050 ml 36782 ml Output Total 600 ml 8220 ml Balance 520 ml 1050 ml 7045 ml Intake Oral 1120 ml 1050 ml 86100 ml IV Total 20 ml Output Urine Total 600 ml 8220 ml # Voids 4 4 25 # Bowel Movements 0 1 Exam GA: AAOx3, NAD. HEENT: atraumatic, no pallor, no icteric sclerae. Neck (+) JVD, without adenopathy or thyromegaly. Heart: Regular; soft systolic murmur. Lungs: Coarse crackles at bases. Prolonged expiratory phase. Abdomen: soft, NT, ND, no HSM. Ext: 2+ edema with sacral swelling. Lab and Diagnostics Result Diagram: 12/15/16 0650 12/15/16 0650 Microbiology Urine strep pneumo antigen negative Nasal MRSA swab negative Blood aerobic and anaerobic no growth 5 days Nasopharyngeal PCR negative X-Rays, CTs and MRIs . X-RAY CHEST ONE VIEW, PORTABLE IMPRESSION: Low lung volumes with diffuse consolidative and groundglass opacities which could represent multifocal pneumonia and/or aspiration. Please correlate clinically to exclude pulmonary edema. Recommend continued radiographic followup Dictated by: Nino Bolanos M.D. on 12/07/2016 at 18:48 US ABDOMEN IMPRESSION: 1. Contracted gallbladder. No gallstones. There is gallbladder wall thickening, which may be secondary to inadequate distention. 2. A small amount of ascites. 3. Small left effusion. 4. Mild splenomegaly 5. Small simple appearing exophytic right renal cyst. 6. Pancreas obscured by overlying bowel gas. Dictated by: Jairo Aviles M.D. on 12/08/2016 at 19:05 Cardiac Echo Impressions . Echocardiogram Report Interpretation Summary: The left ventricle is moderate-severely dilated and left ventricular systolic function is severely reduced with the ejection fraction estimated to be 10-15%. There is a significant dyssynchronous contraction pattern, consistent with a conduction abnormality with severe global hypokinesis that is worse at the apex and the entire posterior wall which appear to be essentially akinetic. Trabeculae near apex are visualized but a thrombus can not be excluded. Diastolic function could not be accurately assessed due to unobtainable data. The right ventricle is mildly dilated. Right ventricular systolic function is severely reduced. The right ventricular systolic pressure is estimated at 49 mmHg assuming a right atrial pressure of 15 mm Hg. The left atrium is moderately dilated and the right atrium is mildly dilated. There is moderate mitral annular calcification with probable moderate mitral regurgitation and minimal to mild mitral stenosis. There is moderate tricuspid regurgitation. The aortic valve is slightly calcified with mild to moderate aortic regurgitation but no aortic valve stenosis. There is mild to moderate pulmonic regurgitation. The ascending aorta and aortic arch are at the upper limits of normal in size. Additional Diagnostics Date of Service: 12/08/16 1721 PROCEDURE: US ABDOMEN ([id number]) IMPRESSION: 1. Contracted gallbladder. No gallstones. There is gallbladder wall thickening, which may be secondary to inadequate distention. 2. A small amount of ascites. 3. Small left effusion. 4. Mild splenomegaly. 5. Small simple appearing exophytic right renal cyst. 6. Pancreas obscured by overlying bowel gas. Dictated by: Jairo Aviles M.D. on 12/08/2016 at 19:05 Approved by: Jairo Aviles M.D. on 12/08/2016 at 19:10 Plan Impression 1. LO due to CRS, resolved. 2. 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 Anasarca 4. COPD 5. CAD s/p CABG. 6. DM-2. Plan: Follow fur blowing machine attendant's recommendation. Will sign off. Please do not hesitate to call with any questions and concerns. Raffi Shepherd MD Dec 15, 2016 11:36
--- NOTE | 2016-12-15 13:17 | PCM.PNMED ---
Subjective Date of Service Dec 15, 2016 Exam Vital Signs Vital Sign - Last Date Time Temp Pulse Resp B/P Pulse Ox O2 Delivery O2 Flow Rate FiO2 12/15/16 12:12 96 12/15/16 12:12 36.6 18 105/49 95 Room Air Intake and Output 12/14/16 12/14/16 12/15/16 Cumulative From/Thru 15:00 23:00 07:00 12/07/16 17:27 - 12/15/16 06:48 Intake Total 1120 ml 1050 ml 49780 ml Output Total 600 ml 8220 ml Balance 520 ml 1050 ml 7045 ml Intake Oral 1120 ml 1050 ml 85439 ml IV Total 20 ml Output Urine Total 600 ml 8220 ml # Voids 4 4 25 # Bowel Movements 0 1 Lab and Diagnostics o/n ongoing diuresis, stable Cr, ambulates in hallway, drinking water on RA NAD A and O, poor memory talking in full sentence bilateral mild crackles 2+ edema RRR systolic mumur nt abdomen Result Diagram: 12/15/16 0650 12/15/16 0650 Microbiology Urine strep pneumo antigen negative Nasal MRSA swab negative Blood aerobic and anaerobic no growth 5 days Nasopharyngeal PCR negative X-Rays, CTs and MRIs . X-RAY CHEST ONE VIEW, PORTABLE IMPRESSION: Low lung volumes with diffuse consolidative and groundglass opacities which could represent multifocal pneumonia and/or aspiration. Please correlate clinically to exclude pulmonary edema. Recommend continued radiographic followup Dictated by: Nino Bolanos M.D. on 12/07/2016 at 18:48 US ABDOMEN IMPRESSION: 1. Contracted gallbladder. No gallstones. There is gallbladder wall thickening, which may be secondary to inadequate distention. 2. A small amount of ascites. 3. Small left effusion. 4. Mild splenomegaly 5. Small simple appearing exophytic right renal cyst. 6. Pancreas obscured by overlying bowel gas. Dictated by: Jairo Aviles M.D. on 12/08/2016 at 19:05 Cardiac Echo Impressions . Echocardiogram Report Interpretation Summary: The left ventricle is moderate-severely dilated and left ventricular systolic function is severely reduced with the ejection fraction estimated to be 10-15%. There is a significant dyssynchronous contraction pattern, consistent with a conduction abnormality with severe global hypokinesis that is worse at the apex and the entire posterior wall which appear to be essentially akinetic. Trabeculae near apex are visualized but a thrombus can not be excluded. Diastolic function could not be accurately assessed due to unobtainable data. The right ventricle is mildly dilated. Right ventricular systolic function is severely reduced. The right ventricular systolic pressure is estimated at 49 mmHg assuming a right atrial pressure of 15 mm Hg. The left atrium is moderately dilated and the right atrium is mildly dilated. There is moderate mitral annular calcification with probable moderate mitral regurgitation and minimal to mild mitral stenosis. There is moderate tricuspid regurgitation. The aortic valve is slightly calcified with mild to moderate aortic regurgitation but no aortic valve stenosis. There is mild to moderate pulmonic regurgitation. The ascending aorta and aortic arch are at the upper limits of normal in size. Additional Diagnostics Date of Service: 12/08/16 1721 PROCEDURE: US ABDOMEN ([id number]) IMPRESSION: 1. Contracted gallbladder. No gallstones. There is gallbladder wall thickening, which may be secondary to inadequate distention. 2. A small amount of ascites. 3. Small left effusion. 4. Mild splenomegaly. 5. Small simple appearing exophytic right renal cyst. 6. Pancreas obscured by overlying bowel gas. Dictated by: Jairo Aviles M.D. on 12/08/2016 at 19:05 Approved by: Jairo Aviles M.D. on 12/08/2016 at 19:10 Assessment & Plan 76 y/o M with memory issues and a hx of CAD s/p CABG twenty yrs ago, DM type 2, HTN and COPD who presented to the ED with the complaint of increased redness and swelling in his legs for the past three days. CHF exacerbation/closer monitoring of Cr. Hospital day 9. 1. 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 Active. -Echocardiogram showing EF 10-15% -Nephrology following patient, recommendations appreciated -Per nephrology: - Stop IV Lasix / chlorthalidone - Start torsemide / Aldactone -Cardiology following patient, recommendations appreciated -Per cardiology: - Stop torsemide - Continue IV Lasix 80 mg IV BID - Started metoprolol 25 mg by mouth daily -BUN trending up over 2 days, creatinine remains within normal limits -Patient has been hypotensive with current medication regimen, -- I stopped lisinopril for now, lasix ongoing, metoprolol ongoing. ICD and cardiac cath recommended by cards, patient undecided 78kg, improving wt, voiding into urinal 2. Anasarca, suspect acute and present on admission. ongoing -likely due to heart failure noted above -continue with diuresis as noted above -abdominal ultra sound on 12/08 with only small ascites. 3. Acute on chronic COPD exacerbation, reported as present on admission. Currently seems resolved and stable -50+ pack-year smoking history. Ongoing tobacco use. -sputum culture pending -received 125mg IV Solu-Medrol in ED. -continue to hold Prednisone given no significant wheezing noted on exam and presenting pulmonary symptoms likely acute CHF -continue with Nebs 4 Acute community acquired pneumonia, present on admission. Unlikely -doubt this diagnosis given normal WBC, negative procalcitonin, afebrile and given clinical picture -suspect CXR findings likely edema as opposed to infiltrate -received 2g ceftriaxone, 125mg IV Solu-Medrol, DuoNeb x1in the ED -continue to hold antibiotics and follow clinically 5. Coronary artery disease. Chronic. Present on admission. Ongoing - Cardiology following, recommendations are appreciated - Lipid panel shows elevated LDL - Continue aspirin and Lipitor 6. Elevated troponin, present on admission. normalized on repeat -Patient remains asymptomatic for chest pain -Likely secondary to demand ischemia, acute exacerbation of CHF -Echo as noted above 7. Hyperkalemia, unknown chronicity, present on admission. Resolved. Now with hypokalemia - Patient trended down to hypokalemia - Remains within normal limits 3 days - Continue to monitor 8. Hypertension. Present on admission. Ongoing - Cardiology following as in #1 - Home medications ramipril, losartan started while inpatient - Per cardiology lisinopril 10 mg daily - Continue spironolactone 50 mg daily 9. Diabetes mellitus, type 2 (chronic), present on admission. Ongoing - Held home metformin and glimepiride - Correctional scale insulin 10. Hyperlipidemia (chronic), present on admission Ongoing -continue home statin 11. Tobacco dependence. Present on admission. Chronic - Patient counseled on tobacco cessation - Nicotine patch daily 12. Goals of care - Palliative care consult, recommendations appreciated - Per palliative care: - Patient needs to live in assisted living or [facility] closer to family. Specifically for medication administration - Prognosis 6 months or less, eligible for hospice care - Driving privileges revoked Dispo: 1-2 days pending further cardiology evaluation and medication finalization -- cardiac procedure pending when VSS. PT recommendations. Patient 's family hoping patient will be discharged to SNF or assisted living closer to [facility]. Social work involved. GI Prophylaxis: Not indicated VTE Prophylaxis: Sub-Q Heparin (Unfractionated) VTE Mechanical Devices: Venous Foot Pump Resuscitation Status: CPR: Attempt Resuscitation Ramon Burden MD Dec 15, 2016 13:05
--- NOTE | 2016-12-15 14:05 | PCM.PNCARD ---
Subjective Date of service Dec 15, 2016 Chief Complaint acute/chronic CHF History of Present Illness I have reviewed Dr. Ignacio's notes and palliatative care notes as well. I was asked to follow up on this gentleman and see if he wishes to proceed with cardiac catheterization and even possible ICD. Patient was sitting on the couch and appears to be resting comfortable and has no difficulty giving his thoughts in this difficult situation. No family members were in the room. After briefly discussing with him about the cardiac catheterization and potential outcomes after completing the procedure, he wishes to not proceed with anymore procedures and would like to go home. I clearly explained to him about his significantly increased risk for sudden cardiac arrest or secondary to his end-stage heart failure and he seems to understand what I am telling him but he continues to state that he wants to go home. "Everything has to come to an end" patient mentions multiple times. He actually stated that he would like to peacefully secondary to a cardiac arrest. Constitutional: Denies: Fever Cardiovascular: Denies: Chest Pain Respiratory: Reports: Shortness of Breath, Denies: Cough Additional Information: some degree of short term memory loss Exam Vital Signs Vital Sign - Last Date Time Temp Pulse Resp B/P Pulse Ox O2 Delivery O2 Flow Rate FiO2 12/15/16 12:12 96 12/15/16 12:12 36.6 18 105/49 95 Room Air Intake and Output 12/14/16 12/14/16 12/15/16 Cumulative From/Thru 14:59 22:59 06:59 12/07/16 17:27 - 12/15/16 06:48 Intake Total 1120 ml 1050 ml 57535 ml Output Total 600 ml 8220 ml Balance 520 ml 1050 ml 7045 ml Intake Oral 1120 ml 1050 ml 75235 ml IV Total 20 ml Output Urine Total 600 ml 8220 ml # Voids 4 4 25 # Bowel Movements 0 1 Lab and Diagnostics Result Diagram: 12/15/16 0650 12/15/16 0650 Assessment & Plan Problems: (1) Acute on chronic end-stage systolic heart failure Plan: LVEF 10-15% with end-stage HF. Patient's options are very limited. I suspect that his grafts are occluded and if so PCI is not an option. He is not a candidate for re-do bypass. I have offered him a cardiac catheterization to at least take some pictures of his coronaries and grafts but he has clearly stated to me as well as to his nurse that he would like to go home. I have repeatedly informed him that he is a high risk for SCA/SCD and he has stated that he hopefully has one so he can peacefully. I will respect his wishes and will cancel his cardiac catheterization and discontinue his telemetery. He has had a run of non-sustained VT and PVCs but so far he has not been terribly symptomatic from his arrhythmia. However due to his severely reduced LVEF and frequent ventricular arrhythmia, I informed the patient that he can no longer drive since he will put himself and others on the road at risk. He understands this as well. For now, I would simply continue with current medications and start transition from IV Lasix to oral Lasix. He is currently on IV Lasix 80 mg BID so I would at least put him on oral Lasix 80 mg twice a day. Restart Lisinopril but place him on a lower dose such as Lisinopril 5 mg once a day due to his hypotension. I have discussed the case with palliative care team and informed them that home hospice would probably be the best option for this unfortunate gentleman. I will sign off on this case but if I can be any further assistance please do not hesitate to contact me. Status: Acute ICD Code: I50.23 (2) Ischemic cardiomyopathy Status: Chronic ICD Code: I25.5 Pain Evaluation: Adequate Pain Control GI Prophylaxis: Not indicated VTE Prophylaxis: Sub-Q Heparin (Unfractionated) VTE Mechanical Devices: Venous Foot Pump Resuscitation Status: DNR/DNI:Do Not Resuscitate/Intubate Time spent 30 minutes Adeel Díaz MD Dec 15, 2016 14:05
--- NOTE | 2016-12-15 17:45 | DRSVH ---
PROCEDURE: CT BRAIN WITHOUT CONTRAST ([id number]) INDICATIONS: Acute mental status change. TECHNIQUE: Noncontrast 4.5 mm thick angled axial sections acquired from the foramen magnum to the vertex, with c oronal reformats. COMPARISON: None. FINDINGS: Image quality: Excellent. CSF spaces: Basal cisterns are patent. No extra-axial fluid collections. The ventricles are symmet maeve in size and shape. Brain: No intracranial bleeds or masses. There is cerebral volume loss for age, with resultant vent ricular and sulcal prominence. 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 There are periventricular and deep white matter chronic small vessel ischemic changes. There is intracranial i nternal carotid artery and vertebral artery atherosclerosis. Skull and face: Calvarium and visualized facial bones appear intact, without suspicious lesions. Sinuses: Visualized sinuses and mastoids are clear. IMPRESSION: No acute intracranial disease process. Dictated by: Minna Panchal MD, PhD on 12/15/2016 at 17:42 Approved by: Minna Panchal MD, PhD on 12/15/2016 at 17:44
--- NOTE | 2016-12-15 19:35 | NUR ---
IV lasix/Lisinopril Pts BP on the low spectrum. notified, meds d/c. Tele d/c by cardio. Will continue to monitor.
[2016-12-15] MEDS ORDERED: 0.9% Sodium Chloride 100 ML ONE (21:42)
[2016-12-16] MEDS: Heparin 5,000 Unit/mL Inj SUBQ SCH ×3 (02:00→16:27)
[2016-12-16 04:55] VITALS: BP 102/63; PULSE 91; RESP 18; O2SAT 95
[2016-12-16 05:40] LABS: Mean Corpuscular Hemoglobin 28.5 pg (27.0-35.0); Mean Corpuscular Volume 84.2 fL (81-100)
[2016-12-16 06:01] LABS: Phosphorus 3.2 mg/dL (2.5-4.9)
--- NOTE | 2016-12-16 06:18 | NUR ---
Night Activity Pt experiencing night groaning and mumbling. Awakes to light touch or voice, taking a moment to reorient. No pain or discomfort expressed. States that each bed is different but he isn't in need of more pillows, blankets, or anything. Pt sat up for about an hour at midnight with some coffee. Pt is frequently out of bed and coming out to visit staff. Nurse is stationed outside his room to keep watch.
[2016-12-16] MEDS: Furosemide 10 mg/mL 10 mL Inj IVPUSH SCH (07:39)
[2016-12-16] MEDS: MeTOProlol XL 25 mg ER24 Tablet PO SCH (07:40)
[2016-12-16] MEDS: Insulin LISPRO 300 Unit/3 mL Inj SUBQ SCH ×4 (07:57→20:51)
[2016-12-16 08:03] VITALS: PULSE 87; RESP 16; O2SAT 97
--- NOTE | 2016-12-16 09:25 | NUR ---
JUANA signed NAE Goel
--- NOTE | 2016-12-16 13:37 | PCM.PNCARD ---
Subjective Date of service Dec 16, 2016 Chief Complaint acute/chronic CHF History of Present Illness I went into the room and asked him if he remembered anything from our conversation yesterday and he did not. His RN today mentioned that he has asked for coffee 6 times today but forgets to drink it. I had reviewed his CT head as well which shows cerebral volume loss and prior stroke. He looks and appears to be quite comfortable though. Constitutional: Denies: Fever, Sweats Cardiovascular: Denies: Chest Pain, Irregular Heart Rate, Palpitations Respiratory: Denies: Shortness of Breath, Wake up SOB Neurological: Reports: Confusion Exam Vital Signs Vital Sign - Last Date Time Temp Pulse Resp B/P Pulse Ox O2 Delivery O2 Flow Rate FiO2 12/16/16 11:50 82 12/16/16 08:03 16 97 Room Air 12/16/16 04:55 36.9 102/63 Intake and Output 12/15/16 12/15/16 12/16/16 Cumulative From/Thru 15:01 23:01 07:01 12/07/16 17:27 - 12/16/16 06:51 Intake Total 942 ml 1000 ml 81660 ml Output Total 8220 ml Balance 942 ml 1000 ml 8987 ml Intake Oral 942 ml 1000 ml 60933 ml IV Total 0 ml 20 ml Output Urine Total 8220 ml # Voids 3 3 31 # Bowel Movements 0 1 General: Pleasant Cooperative Skin: Warm & dry to touch Head: Normocephalic Neck: JVP normal Chest: Clear auscultation w/o rales/wheeze Cardiac: Regular rhythm Occasional premature beats Pulses: Pulses full/equal all extremities Abdomen: Soft, non-distended, non-tender Extremities: Edema Neurological: Alert & oriented Psychological: Reduced short term memory Lab and Diagnostics Labs CBC Test 12/15/16 06:50 12/16/16 05:15 Neutrophils (%) (Auto) 73.3% (40-74) Lymphocytes (%) (Auto) 12.0% (14-46) Monocytes (%) (Auto) 10.4% (4-12) Eosinophils (%) (Auto) 4.1% (0-5) Basophils (%) (Auto) 0.1% (0-3) White Blood Count 8.1th/mm3 (3.8-10.1) Red Blood Count 5.12mil/mm3 (4.40-5.80) Hemoglobin 14.6g/dL (13.8-17.2) Hematocrit 43.1% (41.0-50.0) Mean Corpuscular Volume 84.2fL (81-100) Mean Corpuscular Hemoglobin 28.5pg (27.0-35.0) Mean Corpuscular Hemoglobin Concent 33.9% (32.0-37.0) Red Cell Distribution Width 18.3% (12.3-15.4) Platelet Count 125bil/L (150-400) CMP Test 12/07/16 18:25 12/08/16 07:41 12/09/16 05:40 12/10/16 06:00 Hemoglobin A1c 7.7% Lactic Acid Level 1.9mmol/L Hold Campbell Top Tube Received Troponin T 0.010ug/L Thyroid Stimulating Hormone (TSH) 1.880uIU/mL Procalcitonin 0.06ng/mL Test 12/11/16 01:25 12/11/16 22:04 12/14/16 01:50 12/15/16 06:50 Pro-B-Type Natriuretic Peptide 79419sz/mL Magnesium Level 2.1mg/dL Triglycerides Level 7.2mg/dL Cholesterol Level 159mg/dL LDL Cholesterol, Calculated 109.560mg/dL VLDL Cholesterol 1.440mg/dL HDL Cholesterol 48mg/dL Cholesterol/HDL Ratio 3.31 Total Bilirubin 2.3mg/dL Aspartate Amino Transf (AST/SGOT) 46U/L Alanine Aminotransferase (ALT/SGPT) 58U/L Alkaline Phosphatase 54U/L Total Protein 6.8g/dL Test 12/16/16 05:15 Sodium Level 134mEq/L Potassium Level 4.2mEq/L Chloride Level 92mEq/L Carbon Dioxide Level 28mmol/L Blood Urea Nitrogen 54mg/dL Creatinine 0.98mg/dL Estimat Glomerular Filtration Rate 79mL/min Glucose Level 181mg/dL Calcium Level 9.6mg/dL Phosphorus Level 3.2mg/dL Albumin 3.8g/dL Result Diagram: 12/16/1651412/16/16514 Assessment & Plan Problems: (1) Acute on chronic end-stage systolic heart failure Plan: Resolved acute CHF. But has severely reduced LVEF 13%. NYHA class IIIa. Euvolemic on examination. I had a conversation with his two children ( Mayda and Lui) and with his current hospitalist. After reviewing his CT head and getting to know Mr. Juan a little more, I believe proceeding with heart catheterization will be unlikely fruitful in improving this patient's quality of life nor his prognosis over the next 12 months. I have recommended to his two children that some form of hospice would be more appropriate for Mr. Juan. He is unable to make any decisions at this point secondary to his memory impairment. We discussed about various outcomes and potential causes for his memory loss. Probably his memory is more of vascular dementia probably compounded by the fact he does not eat very well as well. It is unlikely but if his memory ever improves and he becomes more independent then Dr. Ignacio can reconsider a heart catheterization if a repeat echocardiogram shows EF <35% . Patient's family agree with the plan and hospitalist was made aware that he should be discharged to a facility where he can receive assistance on a daily basis to make sure he takes his medications and has adequate nutrition. His current HF meds are appropriate and I would not make any changes at this time. I will sign off but if you ever need any further assistance please do not hesitate to contact me. Status: Acute ICD Code: I50.23 (2) Ischemic cardiomyopathy Status: Chronic ICD Code: I25.5 Cardiology Plan: Other (hospice) Pain Evaluation: Adequate Pain Control GI Prophylaxis: Not indicated VTE Prophylaxis: Sub-Q Heparin (Unfractionated) VTE Mechanical Devices: Venous Foot Pump Resuscitation Status: DNR/DNI:Do Not Resuscitate/Intubate Stroke Anti-thrombotic Day 2 Antithrombotic Contraindicate: Palliative care Time spent 60 minutes (discussed with family, doctor, and reviewed images) Adeel Díaz MD Dec 16, 2016 13:38
--- NOTE | 2016-12-16 13:45 | PCM.PNMED ---
Subjective Date of Service Dec 16, 2016 Exam Vital Signs Vital Sign - Last Date Time Temp Pulse Resp B/P Pulse Ox O2 Delivery O2 Flow Rate FiO2 12/16/16 11:50 82 12/16/16 08:03 16 97 Room Air 12/16/16 04:55 36.9 102/63 Intake and Output 12/15/16 12/15/16 12/16/16 Cumulative From/Thru 15:00 23:00 07:00 12/07/16 17:27 - 12/16/16 06:51 Intake Total 942 ml 1000 ml 32744 ml Output Total 8220 ml Balance 942 ml 1000 ml 8987 ml Intake Oral 942 ml 1000 ml 51505 ml IV Total 0 ml 20 ml Output Urine Total 8220 ml # Voids 3 3 31 # Bowel Movements 0 1 Lab and Diagnostics Result Diagram: 12/16/16 0515 12/16/16 0515 Microbiology Urine strep pneumo antigen negative Nasal MRSA swab negative Blood aerobic and anaerobic no growth 5 days Nasopharyngeal PCR negative X-Rays, CTs and MRIs . X-RAY CHEST ONE VIEW, PORTABLE IMPRESSION: Low lung volumes with diffuse consolidative and groundglass opacities which could represent multifocal pneumonia and/or aspiration. Please correlate clinically to exclude pulmonary edema. Recommend continued radiographic followup Dictated by: Nino Bolanos M.D. on 12/07/2016 at 18:48 US ABDOMEN IMPRESSION: 1. Contracted gallbladder. No gallstones. There is gallbladder wall thickening, which may be secondary to inadequate distention. 2. A small amount of ascites. 3. Small left effusion. 4. Mild splenomegaly 5. Small simple appearing exophytic right renal cyst. 6. Pancreas obscured by overlying bowel gas. Dictated by: Jairo Aviles M.D. on 12/08/2016 at 19:05 Cardiac Echo Impressions . Echocardiogram Report Interpretation Summary: The left ventricle is moderate-severely dilated and left ventricular systolic function is severely reduced with the ejection fraction estimated to be 10-15%. There is a significant dyssynchronous contraction pattern, consistent with a conduction abnormality with severe global hypokinesis that is worse at the apex and the entire posterior wall which appear to be essentially akinetic. Trabeculae near apex are visualized but a thrombus can not be excluded. Diastolic function could not be accurately assessed due to unobtainable data. The right ventricle is mildly dilated. Right ventricular systolic function is severely reduced. The right ventricular systolic pressure is estimated at 49 mmHg assuming a right atrial pressure of 15 mm Hg. The left atrium is moderately dilated and the right atrium is mildly dilated. There is moderate mitral annular calcification with probable moderate mitral regurgitation and minimal to mild mitral stenosis. There is moderate tricuspid regurgitation. The aortic valve is slightly calcified with mild to moderate aortic regurgitation but no aortic valve stenosis. There is mild to moderate pulmonic regurgitation. The ascending aorta and aortic arch are at the upper limits of normal in size. Additional Diagnostics Date of Service: 12/08/16 1721 PROCEDURE: US ABDOMEN ([id number]) IMPRESSION: 1. Contracted gallbladder. No gallstones. There is gallbladder wall thickening, which may be secondary to inadequate distention. 2. A small amount of ascites. 3. Small left effusion. 4. Mild splenomegaly. 5. Small simple appearing exophytic right renal cyst. 6. Pancreas obscured by overlying bowel gas. Dictated by: Jairo Aviles M.D. on 12/08/2016 at 19:05 Approved by: Jairo Aviles M.D. on 12/08/2016 at 19:10 Assessment & Plan o/n ongoing forgetfulness, daughter and son have decided on non-op EXAM NAD A and O drinking coffee walking the hallways CTAB speakingin full sentences warm skin bilateral edema 1-2+ A/P 76 y/o M with memory issues and a hx of CAD s/p CABG twenty yrs ago, DM type 2, HTN and COPD who presented to the ED with the complaint of increased redness and swelling in his legs for the past three days. CHF exacerbation/closer monitoring of Cr. Due to cognitive impairment, family and patient opting to hold on cardiac cath/ICD. --continue diuresing --discussed w/ social work ryan Chung is associated w/ [employer]. 1. 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 Active. -Echo EF 10-15% -Per nephrology: - Stop IV Lasix / chlorthalidone - Start torsemide / Aldactone -Per cardiology: - Stop torsemide - Continue IV Lasix 80 mg IV BID transition to PO - Started metoprolol 25 mg by mouth daily -Patient has been hypotensive with current medication regimen -- resumed lisinopril for now, changed lasix to PO, metoprolol ongoing. ICD and cardiac cath recommended by cards, patient declining/undecided/ forgetful of conversations w/ plug cutting machine operator/ RN/ hospitalist 78kg, improving wt 2. Anasarca, suspect acute and present on admission. improving -likely due to heart failure noted above -continue with diuresis as noted above -abdominal ultra sound on 12/08 with only small ascites. 3. Acute on chronic COPD exacerbation, reported as present on admission. Currently seems resolved and stable -50+ pack-year smoking history. Ongoing tobacco use. -received 125mg IV Solu-Medrol in ED. -continue to hold Prednisone given no significant wheezing noted on exam and presenting pulmonary symptoms likely acute CHF -continue with Nebs 4 Acute community acquired pneumonia, present on admission. Unlikely -doubt this diagnosis given normal WBC, negative procalcitonin, afebrile and given clinical picture -suspect CXR findings likely edema as opposed to infiltrate -received 2g ceftriaxone, 125mg IV Solu-Medrol, DuoNeb x1in the ED -continue to hold antibiotics and follow clinically 5. Coronary artery disease. Chronic. Present on admission. Ongoing - Cardiology following, recommendations are appreciated - Lipid panel shows elevated LDL - Continue aspirin and Lipitor 6. Elevated troponin, present on admission. normalized on repeat -Patient remains asymptomatic for chest pain -Likely secondary to demand ischemia, acute exacerbation of CHF -Echo as noted above 7. Hyperkalemia, unknown chronicity, present on admission. Resolved. Now with hypokalemia - Patient trended down to hypokalemia - Remains within normal limits 3 days - Continue to monitor 8. Hypertension. Present on admission. Ongoing 9. Diabetes mellitus, type 2 (chronic), present on admission. Ongoing - Held home metformin and glimepiride - Correctional scale insulin 10. Hyperlipidemia (chronic), present on admission Ongoing -continue home statin 11. Tobacco dependence. Present on admission. Chronic - Patient counseled on tobacco cessation - Nicotine patch daily 12. Goals of care - Per palliative care: - Patient needs to live in assisted living or [facility] closer to family. Specifically for medication administration - Prognosis 6 months or less, eligible for hospice care - Driving privileges revoked Dispo: 1-2 days pending placement, family prefers memory care, no past diagnosis for dementia. GI Prophylaxis: Not indicated VTE Prophylaxis: Sub-Q Heparin (Unfractionated) VTE Mechanical Devices: Venous Foot Pump Resuscitation Status: DNR/DNI:Do Not Resuscitate/Intubate Ramon Burden MD Dec 16, 2016 13:45
--- NOTE | 2016-12-16 14:48 | NUR ---
Laying Flat for possible heart cath. Dr Díaz requested that patient attempt to lay flat for 1 hour, to test if he'll be able to do the same for possible heart cath. Explanation was given to patient, testing to see if he will be able to tolerate laying flat for at least 1 hour. patient verbalized understanding at the time. at 1400hrs patient layed flat in bed. tolerating well. denies SOB/CP or any discomfort. patient slept on/off for approx 45 minutes, then got up to use the restroom. when I asked if he remembered that he needed to lay flat until 1500hrs he stated, "I forgot".
[2016-12-16 15:56] VITALS: BP 104/66; PULSE 84; RESP 18; O2SAT 98
--- NOTE | 2016-12-16 16:13 | NUR ---
Social Work: Continued d/c planning Data: Pt is on day 9 of hospitalization. EMR reviewed. Pt discussed in rounds. MD notified MEDICAL COLLECTIONS SPECIALIST that the cardiac procedure may not be happening, but it seems to be a little bit up in the air due to family having difficulty making a decision. MEDICAL COLLECTIONS SPECIALIST left a message with [facility] and with Lilli at [facility] regarding referrals made last week, no response yet regarding acceptance or denial. MEDICAL COLLECTIONS SPECIALIST spoke with [facility] who states they are able to take pt for respite care and possibly longer, but that family is undecided regarding his discharge plan. MEDICAL COLLECTIONS SPECIALIST spoke with pt's daughter who states that her and her brother are considering options of [facility] verses pt going home with assistance verses memory care facilities such as [facility] or [facility]. MEDICAL COLLECTIONS SPECIALIST inquired about hospice, and pt's daughter states she would like an information visit from hospice. MEDICAL COLLECTIONS SPECIALIST suggested a family meeting with the hospitalist and social work on Sunday or Sunday to determine plan. Pt's daughter agreeable to this and states she will call her brother about this who will call MEDICAL COLLECTIONS SPECIALIST back regarding the times they are available. MEDICAL COLLECTIONS SPECIALIST left a voice mail with hospice of the requesting an info visit for family and to call pt's daughter regarding an info visit time. Assessment: Pt who is independent at baseline. Plan: MEDICAL COLLECTIONS SPECIALIST planning family meeting with family, , and social work regarding d/c plan. Hospice info visit requested. Pt will d/c either to [facility] for respite stay or home with assistance from family and friend or private pay caregiving, or to memory care facility such as [facility] or [facility]. MEDICAL COLLECTIONS SPECIALIST will continue to follow. NAE Goel
--- NOTE | 2016-12-16 17:52 | NUR ---
Memory patient alert to self, place and time, but forgetful. short term memory loss apparent. throughout shift patient would request cups of coffee. he'd set them down while walking in [place] and forget where. He'd drink only sips, set them down and forget about them. Then later request another cup. patient has been very cooperative, pleasant and reorients well. continue to monitor.
[2016-12-16 20:52] VITALS: BP 96/68; PULSE 82; RESP 18; O2SAT 96
[2016-12-17] MEDS: Heparin 5,000 Unit/mL Inj SUBQ SCH ×3 (00:03→16:21)
[2016-12-17 05:50] VITALS: BP 101/65; PULSE 84; RESP 17; O2SAT 97
--- NOTE | 2016-12-17 05:50 | NUR ---
Memory Pt has been alert and oriented. Altho having short term memory pt is aware that he's very forgetful. Denies chest pain, sob, n/v and abd discomfort. HS meds administered as scheduled, Insulin administered per sliding scale. Hourly rounding done, VSS and pt has been afebrile overnight. Will continue to monitor.
[2016-12-17] MEDS: Insulin LISPRO 300 Unit/3 mL Inj SUBQ SCH ×4 (08:01→21:25)
[2016-12-17 08:06] VITALS: BP 104/69; PULSE 80
[2016-12-17] MEDS: MeTOProlol XL 25 mg ER24 Tablet PO SCH (08:27)
--- NOTE | 2016-12-17 11:09 | PCM.PNMED ---
Subjective Date of Service Dec 17, 2016 Exam Vital Signs Vital Sign - Last Date Time Temp Pulse Resp B/P Pulse Ox O2 Delivery O2 Flow Rate FiO2 12/17/16 08:06 80 104/69 12/17/16 05:50 36.6 17 97 Room Air Intake and Output 12/16/16 12/16/16 12/17/16 Cumulative From/Thru 15:00 23:00 07:00 12/07/16 17:27 - 12/17/16 05:50 Intake Total 1226 ml 44405 ml Output Total 8220 ml Balance 1226 ml 86789 ml Intake Oral 1226 ml 81816 ml IV Total 20 ml Output Urine Total 8220 ml # Voids 3 34 # Bowel Movements 1 Lab and Diagnostics Result Diagram: 12/16/1615 12/16/16 0515 Microbiology Urine strep pneumo antigen negative Nasal MRSA swab negative Blood aerobic and anaerobic no growth 5 days Nasopharyngeal PCR negative X-Rays, CTs and MRIs . X-RAY CHEST ONE VIEW, PORTABLE IMPRESSION: Low lung volumes with diffuse consolidative and groundglass opacities which could represent multifocal pneumonia and/or aspiration. Please correlate clinically to exclude pulmonary edema. Recommend continued radiographic followup Dictated by: Nino Bolanos M.D. on 12/07/2016 at 18:48 US ABDOMEN IMPRESSION: 1. Contracted gallbladder. No gallstones. There is gallbladder wall thickening, which may be secondary to inadequate distention. 2. A small amount of ascites. 3. Small left effusion. 4. Mild splenomegaly 5. Small simple appearing exophytic right renal cyst. 6. Pancreas obscured by overlying bowel gas. Dictated by: Jairo Aviles M.D. on 12/08/2016 at 19:05 Cardiac Echo Impressions . Echocardiogram Report Interpretation Summary: The left ventricle is moderate-severely dilated and left ventricular systolic function is severely reduced with the ejection fraction estimated to be 10-15%. There is a significant dyssynchronous contraction pattern, consistent with a conduction abnormality with severe global hypokinesis that is worse at the apex and the entire posterior wall which appear to be essentially akinetic. Trabeculae near apex are visualized but a thrombus can not be excluded. Diastolic function could not be accurately assessed due to unobtainable data. The right ventricle is mildly dilated. Right ventricular systolic function is severely reduced. The right ventricular systolic pressure is estimated at 49 mmHg assuming a right atrial pressure of 15 mm Hg. The left atrium is moderately dilated and the right atrium is mildly dilated. There is moderate mitral annular calcification with probable moderate mitral regurgitation and minimal to mild mitral stenosis. There is moderate tricuspid regurgitation. The aortic valve is slightly calcified with mild to moderate aortic regurgitation but no aortic valve stenosis. There is mild to moderate pulmonic regurgitation. The ascending aorta and aortic arch are at the upper limits of normal in size. Additional Diagnostics Date of Service: 12/08/16 1721 PROCEDURE: US ABDOMEN ([id number]) IMPRESSION: 1. Contracted gallbladder. No gallstones. There is gallbladder wall thickening, which may be secondary to inadequate distention. 2. A small amount of ascites. 3. Small left effusion. 4. Mild splenomegaly. 5. Small simple appearing exophytic right renal cyst. 6. Pancreas obscured by overlying bowel gas. Dictated by: Jairo Aviles M.D. on 12/08/2016 at 19:05 Approved by: Jairo Aviles M.D. on 12/08/2016 at 19:10 Assessment & Plan o/n ongoing forgetfulness, continues to ambulate the hallways, drinking his coffee per usual EXAM SBP 90s NAD A and O drinking coffee walking the hallways CTAB speaking in full sentences RRR warm skin bilateral edema 1-2+ w/ PAD erythematous leg appearance Bili 2.3 << 1.5 A/P 76 y/o M with memory issues and a hx of CAD s/p CABG twenty yrs ago, DM type 2, HTN and COPD who presented to the ED with the complaint of increased redness and swelling in his legs for the past three days. CHF exacerbation/closer monitoring of Cr. Due to cognitive impairment, family and patient opting to hold on cardiac cath/ICD and opting for snf w/ memory care, APPRECIATE PSYCHIATRY AND SPEECH THERAPIST COGNITIVE EVALUATIONS 12/17/16. SIGNIFICANT COGNITIVE DEFICITS --LIKELY DEMENTIA, no prior diagnoses --unlikely pt will remember to consider [place] as recommended by psychiatry --MRI consistent w/ vascular disease/prior CVAs --pending tsh/b12/folate/rpr --PAD on exam. CAD/DM/DLP. Acute exacerbation of systolic and diastolic CHF, associated improved anasarca w / aggressive diuresis, present on admission. Active. -abdominal ultra sound on 12/08 with only small ascites. -Echo EF 10-15% -Per nephrology - multiple diuretic changes initially -- stop IV Lasix / chlorthalidone - Start torsemide / Aldactone -Per cardiology: multiple diuretic/BP med changes finally -- Stop torsemide - IV Lasix 80 mg IV BID transitioned to 80 PO BID 12/16/16 - Started metoprolol 25 mg daily, lisinopril/spironolactone, -Patient has been hypotensive with current medication regimen -- therefore held spironlactone. 78kg, improving wt, ongoing abnormal LFTs w/ SBP 90s-100s Diabetes mellitus, type 2 (chronic), present on admission. Ongoing - Held home metformin and glimepiride - Correctional scale insulin Hyperkalemia, unknown chronicity, present on admission. Resolved. - Patient trended down to hypokalemia w/ diuresis Elevated troponin, present on admission. normalized on repeat asymptomatic for chest pain -Likely secondary to demand ischemia, acute exacerbation of CHF Chronic Issues. POA. stable COPD - presenting pulmonary symptoms likely acute CHF -continue with Nebs - Acute community acquired pneumonia, normal WBC, negative procalcitonin, afebrile, CXR likely edema as opposed to infiltrate -received 2g ceftriaxone, 125mg IV Solu-Medrol, DuoNeb x1in the ED Coronary artery disease/dyslipidemia. - elevated LDL - Continue aspirin and Lipitor Hypertension. Hyperlipidemia (chronic), -continue home statin tobacco dependence. - Patient counseled on tobacco cessation - Nicotine patch daily Goals of care - Per palliative care: - Patient needs to live in assisted living or [facility] closer to family. Specifically for medication administration - Prognosis 6 months or less, eligible for hospice care - Driving privileges revoked Dispo: 1-2 days pending family's choice for placement, pending family's request for family meeting. I have spoken to daughter/son/girlfriend on separate occasions. GI Prophylaxis: Not indicated VTE Prophylaxis: Sub-Q Heparin (Unfractionated) VTE Mechanical Devices: Venous Foot Pump Resuscitation Status: DNR/DNI:Do Not Resuscitate/Intubate Ramon Burden MD Dec 17, 2016 11:09
--- NOTE | 2016-12-17 12:29 | NUR ---
Social Work: Continued Discharge Planning Data & Assessment: Yard Labor Supervisor attempted to call patient's daughter, Judith [phone], to schedule a family meeting, but there was no answer. SW left a message with her name and number requesting a call back. SW will continue to follow. Plan: Yard Labor Supervisor will continue to try and schedule family meeting with family, , and social work in reference to discharge plan. Patient will discharge to [facility] for respite stay or home with assistance from family and friend or private pay caregiving, or to memory care facility such as [facility] or [facility]. Yard Labor Supervisor will continue to follow and assist patient and family with discharge planning. Iqra Olson LMSW, ACM Addendum: 12/17/16 at 1610 by IQRA OLSON SW spoke with patient's son and attempted to schedule family meeting, but he stated that his sister may be the one present in the family meet. Patient's son stated that he would call the SW back and notify her of day and time for possible family meeting. Patient's son stated that his sister was currently visiting [facility] as possible placement for patient. FRANCISCA will continue to follow and assist patient throughout stay. Iqra Olson LMSW, MELANIE
--- NOTE | 2016-12-17 14:54 | NUR ---
Memory Pt forgetful, Dr. Burden to have pt's cog. function/memory evaluated. Pt knows he is in the hospital and that it is 2017, unaware of the month or which hospital this is. Denies pain/discomfort. Up in room and halls independently, gait steady. Does not wander far from room. VSS, afebrile.
--- NOTE | 2016-12-17 16:02 | CONS ---
[address] [address] CONSULTATION REPORT PATIENT: BELKYS ERIC : 1940 MR#: [id number] ADMIT: 12/07/2016 JOB ID: [id number] DATE OF SERVICE: IDENTIFYING DATA: The patient is a 76-year-old male with a history of coronary artery disease, status post coronary artery bypass graft 20 years ago, diabetes mellitus type 2, hypertension and COPD, who presented to the emergency department with complaint of increasing redness and swelling in his lower extremities. The patient's family is currently holding on cardiac cath and ICD and considering memory care facility placement. REFERRAL INFORMATION: Referred by Dr. Ramon Burden for assessment of dementia. CHIEF COMPLAINT: "I think I was retaining some water. I feel good today." HISTORY OF PRESENT ILLNESS: The patient denies a history of depression, anxiety, tanvi, or hallucinations. He is aware of having some memory issues but cannot remember when they occurred. PAST PSYCHIATRIC HISTORY: The patient denies a history of inpatient or outpatient treatment or psychiatric medications. He denies a history of suicide attempt or self-injurious behavior. He denies any family history of psychiatric or medical issues. SOCIAL HISTORY: The patient was born in [place] and raised in [place]. He has one sister who is five years younger than he is. He is a high school graduate and believes he went to [employer] and graduated with an economics degree but cannot say with certainty. 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 He states that he was a GS[employer]12 when he retired. He has been once and once but cannot say for how long he was or when he was . He has two children, a son and a daughter but is unaware of their ages. He believes his daughter lives nearby and is unsure exactly where his son lives but he also believes he is nearby. He currently lives in a house by himself and is not sure exactly how many bedrooms are there but believes 2-3. He reports that he is currently dating and has been dating this individual named Rubia for the last 20 years. She lives in [place] and is reportedly working. He reports a history of having been in the [employer] and believes he was an E4 as an honorable discharge but cannot say exactly when he was in the [employer] and for how long but believes perhaps in 1962 and for four years. MEDICAL PROBLEMS: According to the record, he has acute exacerbation of systolic and diastolic CHF, hyperkalemia, COPD, coronary artery disease, elevated troponin, hypertension, diabetes mellitus type 2, hyperlipidemia, tobacco dependence, and cognitive impairment. CURRENT MEDICATIONS: 1. Digoxin 0.125 mg daily at 12. 2. Insulin per protocol. 3. Metoprolol 25 mg daily. 4. Furosemide 80 mg twice daily. 5. Heparin 5000 units subcu q.8 h. 6. Aspirin 325 mg daily. 7. Atorvastatin 40 mg daily. 8. Nicotine 21 mg transdermal patch daily. 9. Spironolactone 12.5 mg daily. 10. Lisinopril 2.5 mg twice daily. ALLERGIES: No known drug allergies. SUBSTANCE USE HISTORY: The patient denies alcohol or drug use except for occasional alcohol, "little to none." He reports being a 1- to 1-1/2 pack per day smoker and began smoking in 1963 or 1964. VEGETATIVE SYMPTOMS: He reports his appetite is somewhat decreased with slight weight decrease and sleep is reported as good. Energy is okay. MENTAL STATUS EXAMINATION: Appearance: The patient is a mildly unkempt-appearing male wearing a hospital gown and baseball cap, appearing his stated age. Behavior: The patient is pleasant and cooperative with good eye contact. No abnormal motor movements are noted. Mood: "Good." Affect is fairly bright. Speech: Normal rate, volume, and tone. Content of thought: He denies suicidal or homicidal ideation, auditory or visual hallucinations, paranoia or racing thoughts. He reports his anxiety and depression are both "average." Thought processes: Generally linked and linear. Insight: Fair. Judgment: Somewhat impaired regarding limitations. Memory: Impaired with 3/3 object recall at zero minutes and 0/3 object recall at 3 minutes. Folstein mini-mental status exam was 21/30, primarily due to recall, serial 7's and date. Of note, he was able to do interlocking pentagons quite well. Concentration: Somewhat impaired. Intelligence: Appears to be in the average range based upon history and vocabulary. Orientation: He was oriented to 2017 and with the prompt that a holiday had occurred, he was still unable to say, but when given Easter, he was able to say November. He did say on prompting that the date was sometime in the latter part of the month. He was oriented to [facility], [place], [place], 3rd floor. He stated that the president was Shawn Quarles. Sensorium: The patient appears to have both recent and remote memory loss consistent with neurocognitive disorder. IMPRESSION: The patient is a 76-year-old male with multiple medical issues. His magnetic resonance imaging indicates cerebral volume loss for age with resultant ventricular and sulcal prominences. 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 There is also intracranial internal carotid artery and vertebral artery atherosclerosis. Given his performance on the mini-mental status exam and during the history, combined with his brain magnetic resonance imaging, he appears to be suffering from a major neurocognitive disorder, vascular type. PROVISIONAL DIAGNOSES: AXIS I. Major neurocognitive disorder, vascular type. AXIS II. Deferred. AXIS III. See past medical history. AXIS IV. Moderate. AXIS V. Global Assessment of Functioning of 40. PLAN: 1. The patient is requesting that a family meeting be held with his girlfriend and two children to discuss the most appropriate placement. 2. The patient may benefit from an occupational therapy assessment for his level of functioning. 3. At some point, a fitness for driving should be performed to determine whether he is safe to be driving. 4. The patient did not wish to start medications at the present time, but should he agree in the future, Namenda 5 mg and titrated as tolerated may provide some improvement. 5. The patient may be appropriate for in-home ANSELMO or other care. 6. Psychiatry will sign off for now. Please feel free to contact us should you have any further questions.
[2016-12-17 19:36] VITALS: BP 117/62; PULSE 87; RESP 18; O2SAT 95
[2016-12-18] MEDS: Heparin 5,000 Unit/mL Inj SUBQ SCH ×3 (01:11→16:34)
[2016-12-18 04:43] VITALS: BP 108/61; PULSE 81; RESP 16; O2SAT 96
--- NOTE | 2016-12-18 06:19 | NUR ---
NOC activity Denies chest pain, sob, n/v and abd discomfort. Still forgetful but pt states that he's aware. Has been pleasant and cooperative with care. HS meds administered as scheduled, Insulin per sliding scale. and pt has slept most of the night.
[2016-12-18] MEDS: Insulin LISPRO 300 Unit/3 mL Inj SUBQ SCH ×4 (08:00→21:51)
[2016-12-18] MEDS: MeTOProlol XL 25 mg ER24 Tablet PO SCH (08:58)
--- NOTE | 2016-12-18 09:22 | NUR ---
[facility] signed
--- NOTE | 2016-12-18 10:26 | NUR ---
Social work - brief note SW called [facility] to follow-up re: call over the weekdn to request info visit. They reported someone is currently reviewing the case and will follow up with the family shortly. NAE Mccarthy
[2016-12-18 13:34] VITALS: BP 106/55; PULSE 78; RESP 18; O2SAT 98
--- NOTE | 2016-12-18 14:17 | NUR ---
NUTRITION ASSESSMENT: ASSESS: 76 YO male admitted for increased swelling of bilateral lower extremities likely due to CHF exacerbation. Pt continues to have good po intake. PMHx: HTN, hyperlipidemia, DM type 2, CAD s/p CABG, memory/cognitive changes LABS: Reviewed. Glu 295, AST 53, ALT 77, Alb 3.8. MEDS: Reviewed. GI: BM x 1 (12/17) CURRENT WT: 78.5 kg. Admit wt: 91.7 kg (pt came in with bilateral lower extremity edema so wt loss likely due to fluids) DIET: Heart Healthy, Diabetic. PO 75-100% EST. NEEDS: 8416-2056 kcals (25-30 kcals/kg BW), 95-115 g protein (1.2-1.5 g/kg BW) NUTRITION DIAGNOSIS: 1.) No nutritional diagnosis at this time. NUTRITION INTERVENTION: 1.) No nutritional interventions at this time. MONITOR / EVAL: PO intake, labs, nutritional status. Follow per low nutritional risk guidelines.
--- NOTE | 2016-12-18 15:10 | NUR ---
Confusion Patient requesting directions to the first floor. "I need to run home and take care of a couple things, then come back". "I am not sure where my car is, maybe in the parking lot"? Patient carrying belongings, but willingly returned to room following redirection.
--- NOTE | 2016-12-18 15:28 | NUR ---
Gave access and faxed facesheet to [facility] and Darshana Garay per [facility]PRESENTATIVE
--- NOTE | 2016-12-18 16:29 | NUR ---
Social Work: Continued discharge Planning: SW spoke with patient's son to discuss discharge planning and he requested that SW send him a copy of the SNF's in the area. SW emailed SNF list the patient's son at [email or web address]. Patient's son stated that his sister was visiting [facility] and that [facility] would visit the patient and complete a bedside assessment on 12/18/ SW will continue to follow and assist patient with discharge planning. Tash Hoyos, ESAU, ACM
[2016-12-18 20:35] VITALS: BP 100/57; PULSE 60; RESP 16; O2SAT 98
--- NOTE | 2016-12-18 23:50 | PCM.PNMED ---
Subjective Date of Service Dec 18, 2016 Subjective The patient is in no apparent distress. He has been ambulating around the floor. However he is visibly confused. At times he is packed and ready to leave but does not know where he is going or why he is leaving. Exam Vital Signs Vital Sign - Last Date Time Temp Pulse Resp B/P Pulse Ox O2 Delivery O2 Flow Rate FiO2 12/18/16 20:35 36.7 60 16 100/57 98 12/18/16 20:30 Supplement Oxygen Intake and Output 12/17/16 12/17/16 12/18/16 Cumulative From/Thru 15:00 23:00 07:00 12/07/16 17:27 - 12/18/16 06:16 Intake Total 450 ml 1282 ml 750 ml 93379 ml Output Total 8220 ml Balance 450 ml 1282 ml 750 ml 40881 ml Intake Oral 450 ml 1272 ml 750 ml 56011 ml IV Total 10 ml 30 ml Output Urine Total 8220 ml # Voids 2 3 3 42 # Bowel Movements 1 2 Exam General: Patient is in no apparent distress. He is at times pleasantly confused. HEENT: Head is atraumatic and normocephalic. Eyes: Pupils are equally round and reactive to light and accommodation. Extraocular muscles are intact. Sclera are white, anicteric. Subconjunctival mucosa is pink. Ears and nose are unremarkable. Oropharynx: There is no mucosal lesions, there is no thrush, there is no pharyngitis. Neck: Is supple, there are no nodes, or masses or tenderness. Chest: Is clear to auscultation and percussion. There are no rales, rhonchi, wheezes or rubs. Heart: Rate is controlled, rhythm is irregular. There is no murmur, rub or gallop. Abdomen: Good bowel sounds are present. Abdomen is soft, nontender, no organomegaly or masses were appreciated. Extremities: Are symmetrical and well perfused. There is no edema, there is no cellulitis, no rash. Neurologic: There are no focal neurological deficits. Cranial nerves II through XII are intact. There are no sensory or motor deficits. Psychiatric: Patients mood is calm and shows no sign of agitation. Patient is quite confused at times. Genital: Deferred Rectal: Deferred Lab and Diagnostics Result Diagram: 12/16/16 0515 12/17/16 1105 Microbiology Urine strep pneumo antigen negative Nasal MRSA swab negative Blood aerobic and anaerobic no growth 5 days Nasopharyngeal PCR negative X-Rays, CTs and MRIs . X-RAY CHEST ONE VIEW, PORTABLE IMPRESSION: Low lung volumes with diffuse consolidative and groundglass opacities which could represent multifocal pneumonia and/or aspiration. Please correlate clinically to exclude pulmonary edema. Recommend continued radiographic followup Dictated by: Nino Bolanos M.D. on 12/07/2016 at 18:48 US ABDOMEN IMPRESSION: 1. Contracted gallbladder. No gallstones. There is gallbladder wall thickening, which may be secondary to inadequate distention. 2. A small amount of ascites. 3. Small left effusion. 4. Mild splenomegaly 5. Small simple appearing exophytic right renal cyst. 6. Pancreas obscured by overlying bowel gas. Dictated by: Jairo Aviles M.D. on 12/08/2016 at 19:05 Cardiac Echo Impressions . Echocardiogram Report Interpretation Summary: The left ventricle is moderate-severely dilated and left ventricular systolic function is severely reduced with the ejection fraction estimated to be 10-15%. There is a significant dyssynchronous contraction pattern, consistent with a conduction abnormality with severe global hypokinesis that is worse at the apex and the entire posterior wall which appear to be essentially akinetic. Trabeculae near apex are visualized but a thrombus can not be excluded. Diastolic function could not be accurately assessed due to unobtainable data. The right ventricle is mildly dilated. Right ventricular systolic function is severely reduced. The right ventricular systolic pressure is estimated at 49 mmHg assuming a right atrial pressure of 15 mm Hg. The left atrium is moderately dilated and the right atrium is mildly dilated. There is moderate mitral annular calcification with probable moderate mitral regurgitation and minimal to mild mitral stenosis. There is moderate tricuspid regurgitation. The aortic valve is slightly calcified with mild to moderate aortic regurgitation but no aortic valve stenosis. There is mild to moderate pulmonic regurgitation. The ascending aorta and aortic arch are at the upper limits of normal in size. Additional Diagnostics Date of Service: 12/08/16 1721 PROCEDURE: US ABDOMEN ([id number]) IMPRESSION: 1. Contracted gallbladder. No gallstones. There is gallbladder wall thickening, which may be secondary to inadequate distention. 2. A small amount of ascites. 3. Small left effusion. 4. Mild splenomegaly. 5. Small simple appearing exophytic right renal cyst. 6. Pancreas obscured by overlying bowel gas. Dictated by: Jairo Aviles M.D. on 12/08/2016 at 19:05 Approved by: Jairo Aviles M.D. on 12/08/2016 at 19:10 Assessment & Plan The patient is a 76 y/o M with memory issues and a hx of CAD s/p CABG twenty yrs ago, DM type 2, HTN and COPD who presented to the ED with the complaint of increased redness and swelling in his legs for the past three days. CHF exacerbation/closer monitoring of Cr. Due to cognitive impairment, family and patient opting to hold on cardiac cath/ICD and opting for snf w/ memory care, APPRECIATE PSYCHIATRY AND SPEECH THERAPIST COGNITIVE EVALUATIONS 12/17/16. # Significant cognitive deficit --DEMENTIA, no prior diagnoses --unlikely pt will remember to consider namenda as recommended by psychiatry --MRI consistent w/ vascular disease/prior CVAs --pending tsh/b12/folate/rpr --PAD on exam. CAD/DM/DLP. # Acute exacerbation of systolic and diastolic CHF, associated improved anasarca w/ aggressive diuresis, present on admission. Active. -abdominal ultra sound on 12/08 with only small ascites. -Echo EF 10-15% -Per nephrology - multiple diuretic changes initially -- stop IV Lasix / chlorthalidone - Start torsemide / Aldactone -Per cardiology: multiple diuretic/BP med changes finally -- Stop torsemide - IV Lasix 80 mg IV BID transitioned to 80 PO BID 12/16/16 - Started metoprolol 25 mg daily, lisinopril/spironolactone, -Patient has been hypotensive with current medication regimen -- therefore held spironlactone. 78kg, improving wt, ongoing abnormal LFTs w/ SBP 90s-100s # Diabetes mellitus, type 2 (chronic), present on admission. Ongoing - Held home metformin and glimepiride - Correctional scale insulin # Hyperkalemia, unknown chronicity, present on admission. Resolved. - Patient trended down to hypokalemia w/ diuresis # Elevated troponin, present on admission. normalized on repeat asymptomatic for chest pain -Likely secondary to demand ischemia, acute exacerbation of CHF Chronic Issues. POA. stable COPD - presenting pulmonary symptoms likely acute CHF -continue with Nebs - Acute community acquired pneumonia, normal WBC, negative procalcitonin, afebrile, CXR likely edema as opposed to infiltrate -received 2g ceftriaxone, 125mg IV Solu-Medrol, DuoNeb x1in the ED Coronary artery disease/dyslipidemia. - elevated LDL - Continue aspirin and Lipitor Hypertension. Hyperlipidemia (chronic), -continue home statin tobacco dependence. - Patient counseled on tobacco cessation - Nicotine patch daily Goals of care - Per palliative care: - Patient needs to live in assisted living or dull family intermediate closer to family. Specifically for medication administration - Prognosis 6 months or less, eligible for hospice care - Driving privileges revoked Dispo: volunteer services supervisor is working on placement at a memory care center. Pain Evaluation: Adequate Pain Control GI Prophylaxis: Not indicated VTE Prophylaxis: Sub-Q Heparin (Unfractionated) VTE Mechanical Devices: Venous Foot Pump Resuscitation Status: DNR/DNI:Do Not Resuscitate/Intubate Gino Rosario MD Dec 18, 2016 23:50
[2016-12-19] MEDS: Heparin 5,000 Unit/mL Inj SUBQ SCH ×3 (00:28→16:53)
[2016-12-19 05:37] VITALS: BP 119/72; PULSE 81; RESP 16; O2SAT 99
--- NOTE | 2016-12-19 06:06 | NUR ---
NOC activity Pt denies chest pain, sob, n/v or abd discomfort. Still forgetful but is aware of the present situation. Frequent re-orientation provided. HS meds administered as scheduled. Insulin administered per sliding scale. pt's VSS and has been afebrile overnight.
[2016-12-19 06:36] LABS: BASOPHILS % (AUTO) 0.1 % (0-3); EOSINOPHILS % (AUTO) 3.3 % (0-5); MONOCYTES % (AUTO) 11.2 % (4-12); Mean Corpuscular Hemoglobin 28.1 pg (27.0-35.0); Mean Corpuscular Volume 84.2 fL (81-100); NEUTROPHILS % (AUTO) 69.6 % (40-74); Platelet Count 119 bil/L (150-400)
[2016-12-19 07:03] LABS: Magnesium 1.7 mg/dL (1.6-2.6); Phosphorus 3.8 mg/dL (2.5-4.9)
[2016-12-19 07:43] VITALS: PULSE 97; RESP 16; O2SAT 98
[2016-12-19] MEDS: Insulin LISPRO 300 Unit/3 mL Inj SUBQ SCH ×4 (08:00→21:53)
[2016-12-19] MEDS: MeTOProlol XL 25 mg ER24 Tablet PO SCH (09:28)
[2016-12-19 12:17] VITALS: BP 132/74; PULSE 75; RESP 16; O2SAT 97
--- NOTE | 2016-12-19 14:21 | NUR ---
SW - Readiness for Discharge Data: Pt is on day 12 of hospitalization for pneumonia, CHF, exacerbated COPD. EMR reviewed. Pt discussed at morning rounds and will likely discharge tomorrow, is up and independent in room. SW spoke to pt's son Drake [phone] who confirmed that the family will private pay for respite care at [facility]. SW contacted [facility] to confirm pt was accepted. They confirmed they completed bedside assessment and can accept the pt tomorrow morning at 10am. Confimed with son who plans to provide transport to [facility] tomorrow morning at 10am. Confirmed with MD and with pt. All updated and agreeable to plan. No further needs assessed. SW will continue to follow. Assessment: Pt with dementia who would benefit from Assisted Living Plan: Pt to discharge to [facility] at 10am via family in POV. SW will continue to follow for needs. NAE Mccarthy
--- NOTE | 2016-12-19 18:32 | NUR ---
Hugs tag Patient requesting directions to the 1st floor while carrying belongings bag, "I am just going to go home to do a few things, then I will come back". Patient redirected several times, given explanation as to why he needed to stay on unit, offered snacks and activities. Then patient found out by elevator, Hugs tag # [phone] placed on Rt ankle for safety.
[2016-12-19 21:19] VITALS: BP 101/62; PULSE 80; RESP 18; O2SAT 95
--- NOTE | 2016-12-19 23:32 | PCM.PNMED ---
Subjective Date of Service Dec 19, 2016 Subjective Patient remains pleasantly confused. This afternoon he packed plastic bag and attempted to leave the floor in his hospital gown. he did not know where he was going. This was after his ex- came to visit him and have lunch with him and walked with him. However, after she left as when he attempted to leave. Exam Vital Signs Vital Sign - Last Date Time Temp Pulse Resp B/P Pulse Ox O2 Delivery O2 Flow Rate FiO2 12/19/16 21:19 36.8 80 18 101/62 95 12/19/16 20:30 Supplement Oxygen Intake and Output 12/18/16 12/18/16 12/19/16 Cumulative From/Thru 15:00 23:00 07:00 12/07/16 17:27 - 12/19/16 06:23 Intake Total 1588 ml 400 ml 11100 ml Output Total 8220 ml Balance 1588 ml 400 ml 79719 ml Intake Oral 1588 ml 400 ml 07481 ml IV Total 30 ml Output Urine Total 8220 ml # Voids 3 2 47 # Bowel Movements 0 2 Exam General: Patient is in no apparent distress. He is at times pleasantly confused. HEENT: Head is atraumatic and normocephalic. Eyes: Pupils are equally round and reactive to light and accommodation. Extraocular muscles are intact. Sclera are white, anicteric. Subconjunctival mucosa is pink. Ears and nose are unremarkable. Oropharynx: There is no mucosal lesions, there is no thrush, there is no pharyngitis. Neck: Is supple, there are no nodes, or masses or tenderness. Chest: Is clear to auscultation and percussion. There are no rales, rhonchi, wheezes or rubs. Heart: Rate is controlled, rhythm is irregular. There is no murmur, rub or gallop. Abdomen: Good bowel sounds are present. Abdomen is soft, nontender, no organomegaly or masses were appreciated. Extremities: Are symmetrical and well perfused. There is no edema, there is no cellulitis, no rash. Neurologic: There are no focal neurological deficits. Cranial nerves II through XII are intact. There are no sensory or motor deficits. Psychiatric: Patients mood is calm and shows no sign of agitation. Patient is quite confused at times. Genital: Deferred Rectal: Deferred Lab and Diagnostics Result Diagram: 12/19/16 0610 12/19/16 0610 Microbiology Urine strep pneumo antigen negative Nasal MRSA swab negative Blood aerobic and anaerobic no growth 5 days Nasopharyngeal PCR negative X-Rays, CTs and MRIs . X-RAY CHEST ONE VIEW, PORTABLE IMPRESSION: Low lung volumes with diffuse consolidative and groundglass opacities which could represent multifocal pneumonia and/or aspiration. Please correlate clinically to exclude pulmonary edema. Recommend continued radiographic followup Dictated by: Nino Bolanos M.D. on 12/07/2016 at 18:48 US ABDOMEN IMPRESSION: 1. Contracted gallbladder. No gallstones. There is gallbladder wall thickening, which may be secondary to inadequate distention. 2. A small amount of ascites. 3. Small left effusion. 4. Mild splenomegaly 5. Small simple appearing exophytic right renal cyst. 6. Pancreas obscured by overlying bowel gas. Dictated by: Jairo Aviles M.D. on 12/08/2016 at 19:05 Cardiac Echo Impressions . Echocardiogram Report Interpretation Summary: The left ventricle is moderate-severely dilated and left ventricular systolic function is severely reduced with the ejection fraction estimated to be 10-15%. There is a significant dyssynchronous contraction pattern, consistent with a conduction abnormality with severe global hypokinesis that is worse at the apex and the entire posterior wall which appear to be essentially akinetic. Trabeculae near apex are visualized but a thrombus can not be excluded. Diastolic function could not be accurately assessed due to unobtainable data. The right ventricle is mildly dilated. Right ventricular systolic function is severely reduced. The right ventricular systolic pressure is estimated at 49 mmHg assuming a right atrial pressure of 15 mm Hg. The left atrium is moderately dilated and the right atrium is mildly dilated. There is moderate mitral annular calcification with probable moderate mitral regurgitation and minimal to mild mitral stenosis. There is moderate tricuspid regurgitation. The aortic valve is slightly calcified with mild to moderate aortic regurgitation but no aortic valve stenosis. There is mild to moderate pulmonic regurgitation. The ascending aorta and aortic arch are at the upper limits of normal in size. Additional Diagnostics Date of Service: 12/08/16 0167 PROCEDURE: US ABDOMEN ([id number]) IMPRESSION: 1. Contracted gallbladder. No gallstones. There is gallbladder wall thickening, which may be secondary to inadequate distention. 2. A small amount of ascites. 3. Small left effusion. 4. Mild splenomegaly. 5. Small simple appearing exophytic right renal cyst. 6. Pancreas obscured by overlying bowel gas. Dictated by: Jairo Aviles M.D. on 12/08/2016 at 19:05 Approved by: Jairo Aviles M.D. on 12/08/2016 at 19:10 Assessment & Plan The patient is a 76 y/o M with memory issues and a hx of CAD s/p CABG twenty yrs ago, DM type 2, HTN and COPD who presented to the ED with the complaint of increased redness and swelling in his legs for the past three days. CHF exacerbation/closer monitoring of Cr. Due to cognitive impairment, family and patient opting to hold on cardiac cath/ICD and opting for snf w/ memory care, APPRECIATE PSYCHIATRY AND SPEECH THERAPIST COGNITIVE EVALUATIONS 12/17/16. # Significant cognitive deficit --DEMENTIA, no prior diagnoses --unlikely pt will remember to consider namenda as recommended by psychiatry --MRI consistent w/ vascular disease/prior CVAs --pending tsh/b12/folate/rpr --PAD on exam. CAD/DM/DLP. # Acute exacerbation of systolic and diastolic CHF, associated improved anasarca w/ aggressive diuresis, present on admission. Active. -abdominal ultra sound on 12/08 with only small ascites. -Echo EF 10-15% -Per nephrology - multiple diuretic changes initially -- stop IV Lasix / chlorthalidone - Start torsemide / Aldactone -Per cardiology: multiple diuretic/BP med changes finally -- Stop torsemide - IV Lasix 80 mg IV BID transitioned to 80 PO BID 12/16/16 - Started metoprolol 25 mg daily, lisinopril/spironolactone, -Patient has been hypotensive with current medication regimen -- therefore held spironlactone. 78kg, improving wt, ongoing abnormal LFTs w/ SBP 90s-100s # Diabetes mellitus, type 2 (chronic), present on admission. Ongoing - Held home metformin and glimepiride - Correctional scale insulin # Hyperkalemia, unknown chronicity, present on admission. Resolved. - Patient trended down to hypokalemia w/ diuresis # Elevated troponin, present on admission. normalized on repeat asymptomatic for chest pain -Likely secondary to demand ischemia, acute exacerbation of CHF Chronic Issues. POA. stable COPD - presenting pulmonary symptoms likely acute CHF -continue with Nebs - Acute community acquired pneumonia, normal WBC, negative procalcitonin, afebrile, CXR likely edema as opposed to infiltrate -received 2g ceftriaxone, 125mg IV Solu-Medrol, DuoNeb x1in the ED Coronary artery disease/dyslipidemia. - elevated LDL - Continue aspirin and Lipitor Hypertension. Hyperlipidemia (chronic), -continue home statin tobacco dependence. - Patient counseled on tobacco cessation - Nicotine patch daily Goals of care - Per palliative care: - Patient needs to live in assisted living or [facility] to family. Specifically for medication administration - Prognosis 6 months or less, eligible for hospice care - Driving privileges revoked Dispo: director of special services is working on placement at a memory care center. However , we may need to place patient at an assisted living center for now. Will discuss with case management social service team again tomorrow. Pain Evaluation: Adequate Pain Control GI Prophylaxis: Not indicated VTE Prophylaxis: Sub-Q Heparin (Unfractionated) VTE Mechanical Devices: Venous Foot Pump Resuscitation Status: DNR/DNI:Do Not Resuscitate/Intubate Gino Rosario MD Dec 19, 2016 23:32
[2016-12-20] MEDS: Heparin 5,000 Unit/mL Inj SUBQ SCH ×2 (00:09→08:28)
--- NOTE | 2016-12-20 04:37 | NUR ---
Noc activity pt denies chest pain, sob, n/v or abd discomfort. Forgetful but has been pleasant and cooperative with care. Hugs tag secured and tied to pt's left ankle. HS meds administered as scheduled. Insulin per sliding scale. VSS and has been afebrile. Hourly rounding in effect.
[2016-12-20 05:58] VITALS: BP 104/65; PULSE 85; RESP 18; O2SAT 97
[2016-12-20] MEDS: Insulin LISPRO 300 Unit/3 mL Inj SUBQ SCH ×2 (08:00→08:29)
[2016-12-20] MEDS: MeTOProlol XL 25 mg ER24 Tablet PO SCH (08:26)
--- NOTE | 2016-12-20 08:55 | PCM.DIMED ---
Discharge Instructions Date of Service Dec 20, 2016 Dates of Hospitalization Dec 07, 2016 at 19:55 Discharge Diagnosis Discharge Diagnosis CHF and Dementia Diet Heart Healthy, Diabetic Call your provider Fever or Chills, Shortness of breath, Bleeding, Chest pain, Vomitting, Excessive diarrhea, Weakness (unilateral) Patient Instructions Follow-up Provider: Wilmer De Oliveira MD Follow-up with PCP in: 1 week Gino Rosario MD Dec 20, 2016 08:55
[2016-12-20] MEDS ORDERED: POLY17PO6 PO (09:00)
[2016-12-20] MEDS ORDERED: SENN-133 PO (09:00)
[2016-12-20] MEDS ORDERED: NICO1PAT6 TOPICAL (09:00)
[2016-12-20] MEDS ORDERED: FRSM80T PO (09:00)
[2016-12-20] MEDS ORDERED: SPIR25TA PO (09:00)
[2016-12-20] MEDS ORDERED: LAN125 PO (09:00)
[2016-12-20] MEDS ORDERED: LISI-571 PO (09:00)
[2016-12-20] MEDS ORDERED: METF500T4 PO (10:29)
--- NOTE | 2016-12-20 10:50 | NUR ---
Discharge Patient ambulated from unit accompanied by staff and family. Patient alert to self/place and situation at discharge. Prior to discharge, patient denied chest pain/discomfort, shortness of breath, abdominal discomfort, nausea or pain. Family transporting patient to [facility]. Discharge instructions/medications reviewed with patient/family prior to discharge. All questions addressed. Discharge instructions, patient belongings and prescriptions in hand. Hugs tag removed prior to discharge.
[2016-12-20] MEDS ORDERED: METO50TA7 PO (13:16)
--- NOTE | 2016-12-20 23:46 | PCM.DC.MED ---
Discharge Summary Date of Service Dec 20, 2016 Dates of Hospitalization Date of Hospital Admission Dec 07, 2016 at 19:55 Date of Discharge: Dec 20, 2016 Providers: Admitting Physician: Srini Gandara MD Primary Care Physician: Wilmer De Oliveira MD Attending Physician: Srini Gandara MD Diagnosis at Time of Discharge Diagnosis at Time of Discharge CHF and Dementia Procedures XRay, CTs & MRIs . X-RAY CHEST ONE VIEW, PORTABLE IMPRESSION: Low lung volumes with diffuse consolidative and groundglass opacities which could represent multifocal pneumonia and/or aspiration. Please correlate clinically to exclude pulmonary edema. Recommend continued radiographic followup Dictated by: Nino Bolanos M.D. on 12/07/2016 at 18:48 US ABDOMEN IMPRESSION: 1. Contracted gallbladder. No gallstones. There is gallbladder wall thickening, which may be secondary to inadequate distention. 2. A small amount of ascites. 3. Small left effusion. 4. Mild splenomegaly 5. Small simple appearing exophytic right renal cyst. 6. Pancreas obscured by overlying bowel gas. Dictated by: Jairo Aviles M.D. on 12/08/2016 at 19:05 Cardiac Echo Impression . Echocardiogram Report Interpretation Summary: The left ventricle is moderate-severely dilated and left ventricular systolic function is severely reduced with the ejection fraction estimated to be 10-15%. There is a significant dyssynchronous contraction pattern, consistent with a conduction abnormality with severe global hypokinesis that is worse at the apex and the entire posterior wall which appear to be essentially akinetic. Trabeculae near apex are visualized but a thrombus can not be excluded. Diastolic function could not be accurately assessed due to unobtainable data. The right ventricle is mildly dilated. Right ventricular systolic function is severely reduced. The right ventricular systolic pressure is estimated at 49 mmHg assuming a right atrial pressure of 15 mm Hg. The left atrium is moderately dilated and the right atrium is mildly dilated. There is moderate mitral annular calcification with probable moderate mitral regurgitation and minimal to mild mitral stenosis. There is moderate tricuspid regurgitation. The aortic valve is slightly calcified with mild to moderate aortic regurgitation but no aortic valve stenosis. There is mild to moderate pulmonic regurgitation. The ascending aorta and aortic arch are at the upper limits of normal in size. Other Diagnostics Date of Service: 12/08/16 1721 PROCEDURE: US ABDOMEN ([id number]) IMPRESSION: 1. Contracted gallbladder. No gallstones. There is gallbladder wall thickening, which may be secondary to inadequate distention. 2. A small amount of ascites. 3. Small left effusion. 4. Mild splenomegaly. 5. Small simple appearing exophytic right renal cyst. 6. Pancreas obscured by overlying bowel gas. Dictated by: Jairo Aviles M.D. on 12/08/2016 at 19:05 Approved by: Jairo Aviles M.D. on 12/08/2016 at 19:10 Brief History Patient is a 76 year old male with memory issues and a history of CAD s/p CABG twenty yrs ago, DM type 2, HTN and COPD who presented to the ED with the complaint of increased redness and swelling in his legs. He states that he is not quite sure when it started but states that he saw his primary doctor who recommend he go to the ED. He is alert and communicating appropriately but has notable deficits in his memory. Per chart review, the swelling in his legs worsened within the last few days. Additional history was obtained from the patient's son and daughter, who state that the he looks significantly different than his baseline. His daughter notes increasing frailty, ill-appearance and a decreased appetite which she attributes somewhat to his memory issues and ongoing tobacco use. The patient denies any other symptoms and several times asked if he could go home. He denies fever, chills, shortness of breath, chest pain or palpitations, cough, dizziness, GI or symptoms. Per his son and daughter the patient has pill packs prepared at [place] for all his medications but there is questionable compliance with his medications due to his cognitive deficit. In the ED, vitals 36.1, BP 110/53, pulse 88, RR 22, SpO2 99% on room air; Labs significant for a WBC of 11.0 with a left shift, lactic acid 1.9, hyperkalemia ( potassium 5.3), troponin 0.018, proBNP 78795, BUN 48, creatinine 1.21. ECG showing sinus rhythm with a rate of 87, nonspecific T wave abnormalities and anterior ST elevation likely due to LVH. CXR revealed low lung volumes and diffuse groundglass opacities suspicious for multifocal pneumonia. He was given 40mg IV lasix, 125mg IV solumedrol, duonebs, 2g ceftriaxone and 324mg of PO aspirin. Patient was then admitted to the hospitalist service for further evaluation and treatment. Hospital Course The patient is a 76 y/o M with memory issues and a hx of CAD s/p CABG twenty yrs ago, DM type 2, HTN and COPD who presented to the ED with the complaint of increased redness and swelling in his legs for the past three days. CHF exacerbation/closer monitoring of Cr. Due to cognitive impairment, family and patient opting to hold on cardiac cath/ICD and opting for snf w/ memory care, APPRECIATE PSYCHIATRY AND SPEECH THERAPIST COGNITIVE EVALUATIONS 12/17/16. # Significant cognitive deficit --DEMENTIA, no prior diagnoses --unlikely pt will remember to consider namenda as recommended by psychiatry --MRI consistent w/ vascular disease/prior CVAs --pending tsh/b12/folate/rpr --PAD on exam. CAD/DM/DLP. # Acute exacerbation of systolic and diastolic CHF, associated improved anasarca w/ aggressive diuresis, present on admission. Active. -abdominal ultra sound on 12/08 with only small ascites. -Echo EF 10-15% -Per nephrology - multiple diuretic changes initially -- stop IV Lasix / chlorthalidone - Start torsemide / Aldactone -Per cardiology: multiple diuretic/BP med changes finally -- Stop torsemide - IV Lasix 80 mg IV BID transitioned to 80 PO BID 12/16/16 - Started metoprolol 25 mg daily, lisinopril/spironolactone, -Patient has been hypotensive with current medication regimen -- therefore held spironlactone. 78kg, improving wt, ongoing abnormal LFTs w/ SBP 90s-100s # Diabetes mellitus, type 2 (chronic), present on admission. Ongoing - Held home metformin and glimepiride - Correctional scale insulin # Hyperkalemia, unknown chronicity, present on admission. Resolved. - Patient trended down to hypokalemia w/ diuresis # Elevated troponin, present on admission. normalized on repeat asymptomatic for chest pain -Likely secondary to demand ischemia, acute exacerbation of CHF Chronic Issues. POA. stable COPD - presenting pulmonary symptoms likely acute CHF -continue with Nebs - Acute community acquired pneumonia, normal WBC, negative procalcitonin, afebrile, CXR likely edema as opposed to infiltrate -received 2g ceftriaxone, 125mg IV Solu-Medrol, DuoNeb x1in the ED Coronary artery disease/dyslipidemia. - elevated LDL - Continue aspirin and Lipitor Hypertension. Hyperlipidemia (chronic), -continue home statin tobacco dependence. - Patient counseled on tobacco cessation - Nicotine patch daily Goals of care - Per palliative care: - Patient needs to live in assisted living or [facility] closer to family. Specifically for medication administration - Prognosis 6 months or less, eligible for hospice care - Driving privileges revoked Dispo: fitness services manager is working on placement at a memory care center. However , we may need to place patient at an assisted living center for now. Will discuss with case management social service team again tomorrow. Exam Vital Signs (Last) Date Time Temp Pulse Resp B/P Pulse Ox O2 Delivery O2 Flow Rate FiO2 12/20/16 05:58 36.3 85 18 104/65 97 Room Air Exam General: Patient is in no apparent distress. He is at times pleasantly confused. HEENT: Head is atraumatic and normocephalic. Eyes: Pupils are equally round and reactive to light and accommodation. Extraocular muscles are intact. Sclera are white, anicteric. Subconjunctival mucosa is pink. Ears and nose are unremarkable. Oropharynx: There is no mucosal lesions, there is no thrush, there is no pharyngitis. Neck: Is supple, there are no nodes, or masses or tenderness. Chest: Is clear to auscultation and percussion. There are no rales, rhonchi, wheezes or rubs. Heart: Rate is controlled, rhythm is irregular. There is no murmur, rub or gallop. Abdomen: Good bowel sounds are present. Abdomen is soft, nontender, no organomegaly or masses were appreciated. Extremities: Are symmetrical and well perfused. There is no edema, there is no cellulitis, no rash. Neurologic: There are no focal neurological deficits. Cranial nerves II through XII are intact. There are no sensory or motor deficits. Psychiatric: Patients mood is calm and shows no sign of agitation. Patient is quite confused at times. Genital: Deferred Rectal: Deferred Test 12/07/16 18:25 12/08/16 07:41 12/08/16 12:17 12/08/16 19:32 Hemoglobin A1c 7.7% (4.8-5.6) Lactic Acid Level 1.9mmol/L (0.4-2.0) Hold [place] Top Tube Received (Received) Troponin T 0.010ug/L (0.0-0.011) Urine Color Dark yellow (YELLOW) Urine Appearance Clear (CLEAR,HAZY) Urine pH 5.5 (5.0-8.0) Urine Specific [place] 1.025 (1.003-1.035) Urine Protein 30mg/dL (NEG,TRACE) Urine Glucose (UA) Negativemg/dL (NEGATIVE) Urine Ketones Negativemg/dL (NEGATIVE) Urine Occult Blood Negative (NEGATIVE) Urine Nitrite Negative (NEGATIVE) Urine Bilirubin Negative (NEGATIVE) Urine Urobilinogen Normalmg/dL (NORMAL) Urine Leukocyte Esterase Negative (NEGATIVE) Urine RBC 0-2/hpf (0-2) Urine WBC 0-5/hpf (0-5) Urine Epithelial Cells Occasional/hpf (NONE-MOD) Urine Crystals None seen (NONE SEEN) Urine Bacteria None/hpf (NONE-FEW) Urine Hyaline Casts Occasional/lpf (NONE) Urine Granular Casts None seen (NONE SEEN) Urine Waxy Casts None seen (NONE SEEN) Urine Red Blood Cell Casts None seen (NONE SEEN) Urine White Blood Cell Casts None seen (NONE SEEN) Urine Mucus None seen (None Seen) Urine Trichomonas None seen (NONE SEEN) Urine Yeast None (NONE SEEN) Urinalysis Comment None Urine Culture Reflexed Not indicated Urine Legionella pneumophilia Ag Negative (Negative) Test 12/09/16 05:40 12/10/16 06:00 12/11/16 01:25 12/14/16 01:50 Thyroid Stimulating Hormone (TSH) 1.880uIU/mL (0.450-4.500) Procalcitonin 0.06ng/mL (0.00-0.08) Pro-B-Type Natriuretic Peptide 97895zt/mL (0-486) Triglycerides Level 7.2mg/dL (0-149) Cholesterol Level 159mg/dL (100-199) LDL Cholesterol, Calculated 109.560mg/dL (0-99) VLDL Cholesterol 1.440mg/dL HDL Cholesterol 48mg/dL (>39) Cholesterol/HDL Ratio 3.31 (0.0-4.4) Test 12/17/16 05:15 12/17/16 11:05 12/19/16 06:10 Vitamin B12 Level 586pg/mL (211-946) Folate 12.7ng/mL (>3.0) Rapid Plasma Reagin Non reactive (Non Reactive) White Blood Count 8.2th/mm3 (3.8-10.1) Red Blood Count 5.12mil/mm3 (4.40-5.80) Hemoglobin 14.4g/dL (13.8-17.2) Hematocrit 43.1% (41.0-50.0) Mean Corpuscular Volume 84.2fL (81-100) Mean Corpuscular Hemoglobin 28.1pg (27.0-35.0) Mean Corpuscular Hemoglobin Concent 33.4% (32.0-37.0) Red Cell Distribution Width 18.7% (12.3-15.4) Platelet Count 119bil/L (150-400) Neutrophils (%) (Auto) 69.6% (40-74) Lymphocytes (%) (Auto) 15.6% (14-46) Monocytes (%) (Auto) 11.2% (4-12) Eosinophils (%) (Auto) 3.3% (0-5) Basophils (%) (Auto) 0.1% (0-3) Sodium Level 138mEq/L (134-144) Potassium Level 4.1mEq/L (3.5-5.2) Chloride Level 96mEq/L (97-108) Carbon Dioxide Level 29mmol/L (18-29) Blood Urea Nitrogen 42mg/dL (8-27) Creatinine 1.01mg/dL (0.76-1.27) Estimat Glomerular Filtration Rate 77mL/min (>59) Glucose Level 188mg/dL (60-99) Calcium Level 9.7mg/dL (8.5-10.1) Phosphorus Level 3.8mg/dL (2.5-4.9) Magnesium Level 1.7mg/dL (1.6-2.6) Total Bilirubin 1.7mg/dL (0.0-1.2) Aspartate Amino Transf (AST/SGOT) 35U/L (0-50) Alanine Aminotransferase (ALT/SGPT) 68U/L (0-44) Alkaline Phosphatase 54U/L (25-160) Total Protein 6.6g/dL (6.4-8.4) Albumin 3.8g/dL (3.4-5.0) Microbiology Results Urine strep pneumo antigen negative Nasal MRSA swab negative Blood aerobic and anaerobic no growth 5 days Nasopharyngeal PCR negative Discharge Medications Discharge Medications Ascorbic Acid (Vitamin C) 1,000 Mg Tab.chew 1,000 MG PO DAILY (Reported) Atorvastatin Calcium (Atorvastatin Calcium) 40 Mg Tablet 40 MG PO DAILY ( Reported) Digoxin (Lanoxin) 0.125 Mg Tablet 0.125 MG PO DAILY@12 Prescribed by: ARISTEO ROSARIO MD Furosemide (Furosemide) 80 Mg Tab 80 MG PO BID Prescribed by: ARISTEO ROSARIO MD Hydrochlorothiazide (Hydrochlorothiazide) 25 Mg Tablet 25 MG PO DAILY (Reported ) Lisinopril (Lisinopril) 5 Mg Tablet 2.5 MG PO BID Prescribed by: ARISTEO ROSARIO MD Metformin (Metformin) 500 Mg Tablet 1,000 MG PO BID Prescribed by: ARISTEO ROSARIO MD Metoprolol Succinate ER (Toprol XL) 50 Mg Tablet 50 MG PO DAILY (Reported) Metoprolol Succinate ER (Toprol XL) 50 Mg Tablet 50 MG PO DAILY Prescribed by: ARISTEO ROSARIO MD Multivitamin (Multi Vitamin Daily) 1 Each Tablet 1 EACH PO DAILY (Reported) Niacin ER (Niaspan) 1,000 Mg Tablet 2,000 MG PO DAILY (Reported) Nicotine 21 mg/24 hr Patch (Nicotine 21 mg/24 hr Patch) 1 Each Patch.td24 1 PATCH TOPICAL DAILY Prescribed by: ARISTEO ROSARIO MD Spironolactone (Aldactone) 25 Mg Tablet 12.5 MG PO DAILY Prescribed by: ARISTEO ROSARIO MD As needed Albuterol HFA (Proair HFA) 8.5 Gm Hfa.aer.ad 2 PUFFS INH Q4H PRN PRN For Shortness of Breath (Reported) Polyethylene Glycol 3350 (Miralax) 17 Gm Powd.pack 17 GM PO DAILY PRN PRN For Constipation Prescribed by: ARISTEO ROSARIO MD Sennosides (Senna) 8.6 Mg Tablet 17.2 MG PO BID PRN PRN For Constipation Prescribed by: ARISTEO ROSARIO MD Miscellaneous Medications Aspirin (Aspirin) 325 Mg Tablet 325 MG PO (Reported) Folic Acid (Folic Acid) 0.4 Mg Tablet 0.4 MG PO (Reported) Vitamin E (Dl,Tocopheryl Acet) (Vitamin E) 400 Unit Capsule 400 UNIT PO ( Reported) Followup Plan Disposition: Patient is being discharged to [facility]. 18 from [facility] evaluated the patient and deemed that the patient is appropriate for their facility. Discharge Diet: Heart Healthy, Diabetic Follow-up Provider: Wilmer De Oliveira MD Follow-up with PCP in: 1 week Time spent Time spent on discharging this patient was greater than 35 minutes, over half of which was involved in counseling and coordination of care. Gino Rosario MD Dec 20, 2016 23:46
== END 2016-12-20 10:52 | DRG 292 ==
LOC: SED 17:17 → MPC 19:55
PROVIDERS: ADMIT Hospitalist; ATTEND Hospitalist
DX: I50.41 Acute combined systolic (congestive) and diastolic (congestive) heart failure (principal); J44.1 Chronic obstructive pulmonary disease with (acute) exacerbation; I24.8 Other forms of acute ischemic heart disease; N17.9 Acute kidney failure, unspecified; F17.210 Nicotine dependence, cigarettes, uncomplicated; E87.5 Hyperkalemia; E11.9 Type 2 diabetes mellitus without complications; Z79.84 Long term (current) use of oral hypoglycemic drugs; E78.5 Hyperlipidemia, unspecified; I25.10 Atherosclerotic heart disease of native coronary artery without angina pectoris; Z95.1 Presence of aortocoronary bypass graft; I13.10 Hypertensive heart and chronic kidney disease without heart failure, with stage 1 through stage 4 chronic kidney disease, or unspecified chronic kidney disease; N18.9 Chronic kidney disease, unspecified; I95.9 Hypotension, unspecified; I25.5 Ischemic cardiomyopathy; F01.50 Vascular dementia, unspecified severity, without behavioral disturbance, psychotic disturbance, mood disturbance, and anxiety